=== PATIENT | female | born 1930 | race Caucasian/White ===

== ENCOUNTER 2016-09-13 14:02 | Emergency (ER) | payer OTHER, MEDICARE ==
[~2016-09-13 14:02] MED LIST: ASPIRIN EC81 M1 PO; CALCIUM + D 6001 TAB PO; CRESTOR10 M1 PO; HYDRODIURIL 112.5 M1 PO; LOSARTAN POTAS100 M1 PO; PREVACID SOLUTA30 MG PO; SIMVASTATIN20 MG PO; SYNTHROID100 MCG PO; ZANTAC 150MG150 MG PO
[2016-09-13] MEDS ORDERED: DEXILANT60 M1 PO (16:39)
[2016-09-13] MEDS ORDERED: ESCITALOPRAM OXA5 MG (16:40)
--- NOTE | 2016-09-13 16:56 | ED GENERAL ADULT ---
History of Present Illness General Chief Complaint: General Adult Stated Complaint: DIFFICULTY SWALLOWING Source: patient, family, old records Exam Limitations: no limitations Vital Signs & Intake/Output Vital Signs & Intake/Output Vital Signs Date Time Temp Pulse Resp B/P Pulse O2 O2 Flow FiO2 Ox Delivery Rate 09/13 1749 97.5 75 18 155/74 98 Room Air Room Air 09/13 1605 97.9 72 20 150/72 97 09/13 1413 98.3 78 20 172/78 97 Room Air Allergies Coded Allergies: NO KNOWN ALLERGIES (08/24/16) Triage Note: PT TO ED WITH DAUGHTER FOR C/O DIFFICULTY SWALLOWING. PT STATES SHE HAS HAD THIS ISSUE FOR YEARS, IS BEING FOLLOWED BY GI DR HOSIKNS. STATES TODAY WHILE EATING A SANDWICH AND TEA SHE WAS HAVING A HARD TIME SWALLOWING. DENIES ANY PAIN. Triage Nurses Notes Reviewed? yes Onset: Gradual Duration: 1 YEAR Timing: recent history Injury Environment: home Severity: mild Modifying Factors: Improves With: other (MAKES HERSELF VOMIT). HPI: Patient is an 85-year-old female presenting to the emergency department with episodes of dysphagia. She reports that the symptoms have been going on for the past one year and she sees Dr. avilez, cyberathlete. She's had endoscopy donE, she also reports that she had a fall study done in the past and it doesn't reveal anything. She feels like food gets stuck if she eats certain types of food and has to make herself vomit. Currently asymptomatic. She reports that she was up all night last night with similar symptoms and developed similar symptoms today after eating a sandwich for lunch. Denies any current nausea or vomiting. She reports that she was nauseous after eating the sandwich. Denies abdominal pain. No chest pain palpitations. They called Dr. Hoskins's office and the staff there recommended she come into the emergency department to be evaluated. Denies taking anything to help with symptoms. Denies history of any dilutional procedures done to her esophagus. (BLAKE GRUBER,LOBITO) Reconcile Medications Aspirin (Ecotrin*) 81 MG TABLET.DR 1 TAB PO DAILY HEART/BLOOD (Reported) Dexlansoprazole (Dexilant) (Unknown Strength) CAP.BP (Unknown Dose) PO DAILY UNKNOWN (Reported) Escitalopram Oxalate (Unknown Strength) TABLET (Unknown Dose) UNKNOWN ( Reported) Levothyroxine Sodium (Synthroid) 100 MCG TABLET 1 TAB PO DAILY THYROID ( Reported) Lidocaine HCl (Lidocaine HCl Viscous) 2 % SOLUTION 15 ML PO 4 TIMES/DAY PRN sore throat Losartan Potassium 100 MG TABLET 1 TAB PO DAILY BP (Reported) Rosuvastatin Calcium (Crestor) 10 MG TABLET 1 TAB PO DAILY CHOLESTEROL ( Reported) (NOLAN DARBY DO) Past History Travel History Traveled to [place] past 21 day No Medical History Any Pertinent Medical History? see below for history Cardiovascular: hypertension, hyperlipidemia Respiratory: NONE Gastrointestinal: GERD, hiatal hernia Endocrine: HALF THYROID REMOVED Surgical History Surgical History: non-contributory Psychosocial History What is your primary language Azeri Tobacco Use: Never used ETOH Use: denies use Illicit Drug Use: denies illicit drug use Family History Hx Contributory? No (LOBITO LEE) Review of Systems Review of Systems Constitutional: Reports: no symptoms. Comments Review of systems: See HPI, All other systems negative. Constitutional, no chills fever or weight loss HEENT: No visual changes no sore throat no congestion Cardiovascular: No chest pain ,palpitation , orthopnea Skin, no jaundice no rashes Respiratory: No dyspnea cough sputum or hemoptysis GI: No nausea no vomiting : No dysuria No hematuria Muscle skeletal: no back pain, no neck pain, Neurologic: No numbness no confusion Psych: No stress anxiety Immunology: No splenectomy or history of AIDS (LOBITO LEE) Physical Exam Physical Exam General Appearance: well developed/nourished, no apparent distress, alert, awake , comfortable Comments: Well-developed well-nourished person in no acute distress HEENT: Normal EENT exam, extraocular motion intact, no nystagmus. Pupils equally round and reactive to light and accommodation. Nose is atraumatic. External auditory canal and Tympanic membranes clear. Pharynx normal. No swelling or edema. Moist oral mucosa. Clearing secretions without difficulty. Neck: Supple, no lymphadenopathy, normal range of motion without pain or tenderness Back: Nontender, no CVA tenderness. Full range of motion Cardiovascular: Regular rate and rhythms no murmurs rubs or gallops, normal JVP Respiratory: Chest nontender. No respiratory distress.breath sounds clear to auscultation bilaterally Abdomen: Soft, nontender nondistended, no appreciable organomegaly. Normal bowel sounds. No ascites Extremity: No edema, no calf tenderness to palpation, normal and equal pulses. Neuro: Alert oriented x3, motor sensory normal, cranial nerves II through XII grossly intact. Skin: No appreciable rash on exposed skin, skin is warm and dry. Psych: Mood and affect is normal, memory and judgment is normal. Core Measures ACS in differential dx? No CVA/TIA Diagnosis: No Severe Sepsis Present: No Septic Shock Present: No (LOBITO LEE) Progress Differential Diagnoses I considered the following diagnoses in my evaluation of the patient: Esophageal food impaction, esophageal web, esophageal stricture, esophageal dysmotility Plan of Care: Spoke with Dr. Hoskins, her cyberathlete. Recommending following up with GI for manometry testing and further evaluation. Patient tolerating liquids at this time. Some relief with GI cocktail, the patient reports that she was not really having any symptoms on arrival. Patient is well-appearing and in no acute chest. Tolerating by mouth. Discussed with Dr. Martinez and he agrees to plan patient will follow up outpatient. She'll need endoscopy and further evaluation. Initial ED EKG: none (LOBITO LEE) Departure Departure Time of Disposition: 1710 Disposition: HOME OR SELF CARE Condition: Stable Clinical Impression Primary Impression: Dysphasia Referrals: LORETTA SALGADO APRN (PCP/Family) Additional Instructions: Follow-up with your cyberathlete out of [place]. He may need further evaluation with endoscopy and manometry testing. Try taking several small bites of air fluid. Eat soft foods. Increase liquids. Use viscous lidocaine to help with symptoms. Return for worsening symptoms or concerns. Departure Forms: Customer Survey General Discharge Information (LOBITO LEE) Departure Prescriptions: Current Visit Scripts Lidocaine HCl (Lidocaine HCl Viscous) 15 ML PO 4 TIMES/DAY PRN sore throat #100 ML PA/EXERCISE PHYSIOLOGIST CERTIFIED Co-Sign Statement Statement: ED Attending supervision documentation- [x] I saw and evaluated the patient. I have also reviewed all the pertinent lab results and diagnostic results. I agree with the findings and the plan of care as documented in the PA's/EXERCISE PHYSIOLOGIST CERTIFIED's documentation. [x] I have reviewed the ED Record and agree with the PA's/EXERCISE PHYSIOLOGIST CERTIFIED's documentation. [] Additions or exceptions (if any) to the PAs/EXERCISE PHYSIOLOGIST CERTIFIED's note and plan are summarized below: [] (NOLAN DARBY DO) Critical Care Note Critical Care Note Critical Care Time: non-applicable (BLAKE GRUBER,LOBITO)
[2016-09-13] MEDS ORDERED: LIDOCAINE HCL V15 ML PO ×2 (17:13→17:45)
[2016-09-13 17:49] VITALS: BP 155/74
== END 2016-09-13 17:50 ==
LOC: ERH 14:02
DX: R47.02 Dysphasia (principal)

== ENCOUNTER 2017-06-20 21:45 | Inpatient (IN) | payer OTHER, MEDICARE ==
[~2017-06-20] VITALS: Ht 157.5 cm; Wt 61.2 kg
[~2017-06-20 21:45] MED LIST changes: +DEXILANT60 M1 PO; +ESCITALOPRAM OXA5 MG; +LIDOCAINE HCL V15 ML PO
--- NOTE | 2017-06-20 21:54 | ED NECK/BACK PAIN COMPLAINT ---
History of Present Illness General Chief Complaint: Low Back Pain/Injury Stated Complaint: BIBA BACK PAIN X 4 DAYS Source: patient, family, old records, EMS Exam Limitations: no limitations Allergies Coded Allergies: NO KNOWN ALLERGIES (08/24/16) Reconcile Medications Aspirin (Ecotrin*) 81 MG TABLET.DR 1 TAB PO DAILY HEART/BLOOD (Reported) Levothyroxine Sodium (Synthroid) 100 MCG TABLET 1 TAB PO DAILY THYROID ( Reported) Losartan Potassium 100 MG TABLET 1 TAB PO DAILY BP (Reported) Rosuvastatin Calcium (Crestor) 10 MG TABLET 1 TAB PO DAILY CHOLESTEROL ( Reported) Onset: Gradual Duration: day(s): (5) Timing: recent history Quality/Severity: moderate, severe Location: lumbar spine Radiation: none Method of Injury: unknown Loss of Consciousness: no loss of consciousness HPI: 86 year old female presents via EMS from home for severe lower back pain 03/28. 5 days ago she was seen at an urgent care center and had an xray done which showed degenerative changes and ? herniation. She was sent home on steroids and flexeril with minimal relief. Today she was unable to get out of bed secondary to severe pain and was incontinent. Patient lives on her own, ususally uses a walker. She denies any trauma, weakness or numbness in the legs. No abdominal pain, nausea or vomiting. No diffficulty with bowels. (Telma ERIC,Sanam) Vital Signs & Intake/Output Vital Signs & Intake/Output Vital Signs Date Time Temp Pulse Resp B/P B/P Pulse O2 O2 Flow FiO2 Mean Ox Delivery Rate 06/22 1032 Room Air 06/22 1027 Room Air 06/22 0831 76 162/74 06/22 0621 98.0 76 20 162/74 96 06/21 2154 98.0 74 19 130/62 97 Room Air 06/21 1426 98.8 70 18 140/65 94 Room Air ED Intake and Output 06/22 0000 06/21 1200 Intake Total 1075 465 Output Total 1400 Balance -325 465 Intake, IV 575 225 Intake, Oral 500 240 Number 3 Bowel Movements Output, Urine 1400 Patient 135 lb Weight Weight Bed scale Measurement Method Triage Nurses Notes Reviewed? yes HPI: per dr. hollis (Lenny ERIC,Larry Ha) Past History Travel History Traveled to [place] past 21 day No Medical History Any Pertinent Medical History? see below for history Cardiovascular: hypertension, hyperlipidemia Respiratory: NONE Gastrointestinal: GERD, hiatal hernia Endocrine: HALF THYROID REMOVED Surgical History Surgical History: non-contributory Psychosocial History What is your primary language Maltese (Sanam Hollis MD) Medical History Any Pertinent Medical History? see below for history Family History Hx Contributory? No (Larry Galvez MD) Review of Systems Review of Systems Constitutional: Denies: chills, fever. Eyes: Reports: no symptoms. Ears, Nose, Throat, Mouth: Reports: no symptoms. Respiratory: Reports: no symptoms. Cardiovascular: Reports: no symptoms. Gastrointestinal/Abdominal: Denies: abdominal pain, nausea, vomiting. Musculoskeletal: Reports: back pain, muscle pain, muscle stiffness. Skin: Reports: no symptoms. Neurological/Psychological: Denies: numbness, tremors, weakness. All Other Systems: Reviewed and Negative (Sanam Hollis MD) Review of Systems Constitutional: Reports: no symptoms. Eyes: Reports: no symptoms. Ears, Nose, Throat, Mouth: Reports: no symptoms. Respiratory: Reports: no symptoms. Cardiovascular: Reports: no symptoms. Gastrointestinal/Abdominal: Reports: no symptoms. Musculoskeletal: Reports: no symptoms. Skin: Reports: no symptoms. Neurological/Psychological: Reports: no symptoms. All Other Systems: Reviewed and Negative (Larry Galvez MD) Physical Exam Physical Exam General Appearance: alert, awake, anxious, moderate distress, severe distress, thin Head: atraumatic Eyes: Bilateral: PERRL, EOMI. Ears, Nose, Throat, Mouth: hearing grossly normal Neck: normal inspection, supple, full range of motion Respiratory: normal breath sounds Cardiovascular: tachycardia Gastrointestinal: soft, non-tender Back: normal inspection, tender over L1-L3 Extremities: normal range of motion Neurologic/Psych: awake, alert, oriented x 3, normal mood/affect Skin: intact, normal color, warm/dry Comments: positive RIGHT SIDED SLR AT 20 DEGREES (Sanam Hollis MD) Physical Exam General Appearance: well developed/nourished, mild distress Head: atraumatic Eyes: Bilateral: PERRL, EOMI. Ears, Nose, Throat, Mouth: hearing grossly normal Neck: normal inspection, supple, full range of motion Respiratory: normal breath sounds Cardiovascular: regular rate/rhythm Gastrointestinal: soft, non-tender Back: normal inspection, vertebral tenderness Extremities: normal range of motion Neurologic/Psych: awake, alert, oriented x 3, normal mood/affect Skin: intact, normal color, warm/dry Core Measures CVA/TIA Diagnosis: No (Lenny ERIC,Larry Ha) Progress Differential Diagnosis: AAA, aortic dissection, cauda equina syn, herniated disc , myofascial strain, T/L spine injury, vertebral compresion vs other. Hand-Off Endorsed To: Lenny ERIC,Larry Ha Endorsed Time: 2300 Pending: CT, labs (Telma ERIC,Sanam) Differential Diagnosis: vertebral compresion vs other. Plan of Care: Orders Procedure Date/time Status Therapeutic Activities 06/22 UNK Complete Neuromuscular Re-ed 06/22 UNK Complete Evaluate Swallowing 06/21 UNK Complete Current Medications Sig/Arslan Start time Last Medication Dose Stop Time Status Admin Nitrofurantoin 50 MG Q6 06/22 1200 CAN (Macrodantin 50MG Cap) Levothyroxine Sodium 0.1 MG 0700 06/22 0700 AC 06/22 (Synthroid) 0637 Atorvastatin Calcium 40 MG 1700 06/21 1700 AC 06/21 (Lipitor) 1738 Acetaminophen 650 MG BID PRN 06/21 1030 AC (Tylenol) Acetaminophen 1,000 MG BID 06/21 1011 AC 06/22 (Tylenol) 0830 Lidocaine 1 PAT DAILY 06/21 1000 AC 06/22 (Lidoderm) 1046 Losartan Potassium 100 MG DAILY 06/21 1000 AC 06/22 (Cozaar) 0831 Cyclobenzaprine HCl 5 MG TID PRN 06/21 0845 AC 06/22 (Flexeril 5MG Tab) 0833 Heparin Sodium 5,000 UNIT Q8 06/21 0600 AC 06/22 (Porcine) 0637 Tramadol HCl 25 MG Q8P PRN 06/21 0400 AC 06/22 (Ultram) 0637 Laboratory Tests 06/21/17 1855: Urinalysis LIGHT H, Urine Color YEL, Urine Clarity HAZY H, Urine pH 6.0, Ur Specific [place] <= 1.005, Urine Protein NEG, Urine Ketones NEG, Urine Nitrite POS H, Urine Bilirubin NEG, Urine Urobilinogen 0.2, Ur Leukocyte Esterase SMALL H, Ur Microscopic SEDIMENT EXAMINED, Urine RBC RARE, Urine WBC 10-15 H, Ur Epithelial Cells FEW, Urine Bacteria MANY H, Urine Hemoglobin SMALL H, Urine Glucose NEG Microbiology 06/21 1855 URINE ROUT: Urine Culture - RES GRAM NEGATIVE RODS Diagnostic Imaging: Viewed by Me: CT Scan. Discussed w/RAD: CT Scan. Radiology Impression: PATIENT: YESSICA YIN PRESENT AGE: 86 PATIENT ACCOUNT NO: [id number] : 32 LOCATION: [facility] ORDERING PHYSICIAN: Sanam Hollis MD SERVICE DATE: 06/20/17 EXAM TYPE: CAT - CT ABD & PELVIS ANGIOGRAM STUDY PERFORMED: CTA of the abdomen and pelvis with contrast HISTORY: Severe low back pain. Evaluate for dissection or lumbar pathology. DESCRIPTION: Routine abdominal CT angiogram was performed following the administration of 100 mL of Omnipaque 350 intravenous contrast. Coronal and sagittal reformatted images were created at the acquisition workstation reviewed. The images will be reviewed and postprocessed on a dedicated 3-D workstation. Dedicated reformats of the lumbar spine were also created. COMPARISON: None FINDINGS: Vascular: There is extensive atherosclerotic vascular calcification. No aortic aneurysm or dissection. No contrast extravasation. Nonvascular: LUNG BASES: The visualized lung bases are unremarkable. There is a moderate hiatal hernia. LIVER, GALLBLADDER, AND BILIARY TREE: The liver is normal in size, shape, and attenuation. No focal hepatic lesion or biliary ductal dilatation is present. Cholelithiasis is noted without CT evidence of acute cholecystitis. PANCREAS: Unremarkable. SPLEEN: Unremarkable. ADRENAL GLANDS: Unremarkable. KIDNEYS AND URETERS: The kidneys are normal in size, shape , and attenuation. No hydronephrosis, hydroureter, or calculi seen. No perinephric stranding. BLADDER: Unremarkable. GASTROINTESTINAL TRACT: The stomach is nondilated. No dilated or abnormal appearing small bowel. There is sigmoid colonic diverticulosis without diverticulitis. The appendix is not definitively identified but there is no focal right lower quadrant inflammatory stranding. ABDOMINAL WALL: No significant hernia is appreciated. LYMPH NODES: Normal. PELVIC VISCERA: Unremarkable. OSSEOUS STRUCTURES: Symphysitis pubis is noted. There is central compression deformity at L2 with concavity of both the superior and inferior endplates. There is cortical discontinuity in the superior endplate suggesting this represents an acute compression fracture. There is 40% vertebral body height loss centrally. No bony retropulsion. IMPRESSION: 1. Acute compression fracture at L2 with 40% vertebral body height loss centrally. No bony retropulsion. 2. Extensive atherosclerotic vascular calcification without aortic aneurysm or dissection. An addendum to this report will be performed in the morning by a subspecialty trained vascular radiologist. 3. Moderate hiatal hernia. 4. Cholelithiasis without acute cholecystitis. 5. Sigmoid diverticulosis without diverticulitis. DICTATED BY: Rayo Olivas MD DATE/TIME DICTATED:06/21/17113 INSPECTOR CONVEYOR LINE:JOSE JUAN DATE/TIME TRANSCRIBED:06/21/17113 CONFIDENTIAL, DO NOT COPY WITHOUT APPROPRIATE AUTHORIZATION. <Electronically signed in Other Vendor System> SIGNED BY: Rayo Olivas MD 06/21/17 0130 (Larry Galvez MD) Departure Departure Condition: Stable Referrals: Luba Grimaldo APRN (PCP/Family) Departure Forms: Customer Survey General Discharge Information (Telma ERIC,Sanam) Departure Disposition: STILL A PATIENT Clinical Impression Primary Impression: Vertebral compression fracture Secondary Impressions: Dehydration Comments 06/21/16, 2:37am... labs/scans have returned.... discussed at length with family and patient. discussed with case management. Admission Note Spoke With: Julia Alston MD Documentation of Exam: Documentation of any treatments & extenuating circumstances including Concerns Regarding Discharge (functional status, medication knowledge or non-compliance, living conditions, etc.) that warrant an admission rather than observation: pt with vertebral compression fracture with inability to ambulate. also with elevated bun/cr ratio consistent with dehydration. other labs benign. u/a is likely contaminant. pt merits iv pain meds, iv fluids, likely short term rehab. (Larry Galvez MD) Departure Disposition: STILL A PATIENT Clinical Impression Primary Impression: Vertebral compression fracture Secondary Impressions: Dehydration Comments 06/21/16, 2:37am... labs/scans have returned.... discussed at length with family and patient. discussed with case management. Admission Note Spoke With: Julia Alston MD Documentation of Exam: Documentation of any treatments & extenuating circumstances including Concerns Regarding Discharge (functional status, medication knowledge or non-compliance, living conditions, etc.) that warrant an admission rather than observation: pt with vertebral compression fracture with inability to ambulate. also with elevated bun/cr ratio consistent with dehydration. other labs benign. u/a is likely contaminant. pt merits iv pain meds, iv fluids, likely short term rehab. (Lenny ERIC,Larry Ha)
[2017-06-20 23:33] LABS: ABSOLUTE BASOPHIL COUNT 0.1 /CUMM (0.0-0.2); ABSOLUTE EOSINOPHIL COUNT 0 /CUMM (0.0-0.7); ABSOLUTE GRANULOCYTE CT 5.2 /CUMM (1.4-6.5); ABSOLUTE MONOCYTE COUNT 0.8 /CUMM (0.10-0.60); BASOPHIL % 0.9 % (0.0-2.0); EOSINOPHIL % 0.2 % (0-5); GRANULOCYTE % 63.9 % (42.2-75.2); MEAN CORPUSCULAR HGB 29.8 PG (27.0-31.0); MEAN CORPUSCULAR HGB CONC 33.6 G/DL (33.0-37.0); MEAN CORPUSCULAR VOLUME 88.8 FL (81.0-99.0); MEAN PLATELET VOLUME 7.5 FL (7.4-10.4); PLATELET COUNT 359 /CUMM (130-400); RBC DISTRIBUTION WIDTH 13.2 % (11.5-14.5); RED BLOOD CELL CT 4.16 /CUMM (4.20-5.40); WHITE BLOOD CELL COUNT 8.1 /CUMM (4.8-10.8)
--- NOTE | 2017-06-21 01:30 | CT SCAN REPORT ---
STUDY PERFORMED: CTA of the abdomen and pelvis with contrast HISTORY: Severe low back pain. Evaluate for dissection or lumbar pathology. DESCRIPTION: Routine abdominal CT angiogram was performed following the administration of 100 mL of Omnipaque 350 intravenous contrast. Coronal and sagittal reformatted images were created at the acquisition workstation reviewed. The images will be reviewed and postprocessed on a dedicated 3-D workstation. Dedicated reformats of the lumbar spine were also created. COMPARISON: None FINDINGS: Vascular: There is extensive atherosclerotic vascular calcification. No aortic aneurysm or dissection. No contrast extravasation. Nonvascular: LUNG BASES: The visualized lung bases are unremarkable. There is a moderate hiatal hernia. LIVER, GALLBLADDER, AND BILIARY TREE: The liver is normal in size, shape, and attenuation. No focal hepatic lesion or biliary ductal dilatation is present. Cholelithiasis is noted without CT evidence of acute cholecystitis. PANCREAS: Unremarkable. SPLEEN: Unremarkable. ADRENAL GLANDS: Unremarkable. KIDNEYS AND URETERS: The kidneys are normal in size, shape, and attenuation. No hydronephrosis, hydroureter, or calculi seen. No perinephric stranding. BLADDER: Unremarkable. GASTROINTESTINAL TRACT: The stomach is nondilated. No dilated or abnormal appearing small bowel. There is sigmoid colonic diverticulosis without diverticulitis. The appendix is not definitively identified but there is no focal right lower quadrant inflammatory stranding. ABDOMINAL WALL: No significant hernia is appreciated. LYMPH NODES: Normal. PELVIC VISCERA: Unremarkable. OSSEOUS STRUCTURES: Symphysitis pubis is noted. There is central compression deformity at L2 with concavity of both the superior and inferior endplates. There is cortical discontinuity in the superior endplate suggesting this represents an acute compression fracture. There is 40% vertebral body height loss centrally. No bony retropulsion. IMPRESSION: 1. Acute compression fracture at L2 with 40% vertebral body height loss centrally. No bony retropulsion. 2. Extensive atherosclerotic vascular calcification without aortic aneurysm or dissection. An addendum to this report will be performed in the morning by a subspecialty trained vascular radiologist. 3. Moderate hiatal hernia. 4. Cholelithiasis without acute cholecystitis. 5. Sigmoid diverticulosis without diverticulitis.
--- NOTE | 2017-06-21 03:29 | History & Physical ---
Alysia ERIC,[facility] 06/21/17 0321: General Information and HPI MD Statement: I have seen and personally examined YESSICA YIN and documented this H&P. The patient is a 86 year old F who presented with a patient stated chief complaint of [LOW BACK PAIN/INJURY]. Source of Information: patient, family, old records, EMS Exam Limitations: no limitations History of Present Illness: patient is a 86 YO F with PMH significant for HTN, HLD, GERD, hiatal hernia, partial thyroidectomy presented to ER with back pain. Allergies/Medications Allergies: Coded Allergies: NO KNOWN ALLERGIES (08/24/16) Home Med list Aspirin (Ecotrin*) 81 MG TABLET.DR 1 TAB PO DAILY HEART/BLOOD (Reported) Dexlansoprazole (Dexilant) (Unknown Strength) CAP.BP (Unknown Dose) PO DAILY UNKNOWN (Reported) Escitalopram Oxalate (Unknown Strength) TABLET (Unknown Dose) UNKNOWN ( Reported) Levothyroxine Sodium (Synthroid) 100 MCG TABLET 1 TAB PO DAILY THYROID ( Reported) Losartan Potassium 100 MG TABLET 1 TAB PO DAILY BP (Reported) Rosuvastatin Calcium (Crestor) 10 MG TABLET 1 TAB PO DAILY CHOLESTEROL ( Reported) Past History Travel History Traveled to [place] past 21 day No Medical History Cardiovascular: hypertension, hyperlipidemia Respiratory: NONE Gastrointestinal: GERD, hiatal hernia Endocrine: HALF THYROID REMOVED Surgical History Surgical History: non-contributory Gamaliel ERIC, [facility] 06/21/17 0357: Attending MD Review Statement Attending Statement Attending MD Statement: examined this patient, discuss w/resident/PA/CARE PROVIDER, agreed w/resident/PA/CARE PROVIDER, reviewed images, amended to note
[2017-06-21 04:10] VITALS: BP 138/64
--- NOTE | 2017-06-21 06:49 | History & Physical ---
ZulyeduardomosesAlexiskate 06/21/17 0648: General Information and HPI Source of Information: patient, family, old records, EMS Exam Limitations: no limitations History of Present Illness: Ms Ramirez was known to be in her usual state of heatlh until five days ago. She was brought to the ER w/ a chief concern of an acute onset of back pain that began 5 days ago. She has a PMHx of RA, OA, HTN,, dysphagia( work up is still underway at [facility] ), GERD, CKD. 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 As per the pt, pain began while she was turning on her recliner, where she sleeps for most part of the day. Unsure, if she had a sudden change in direction or recliner itself that snapped on her. She noticed an acute pain, which did not subside after resting for a while. She graded the severity of pain as 10/10, located in the lower back w/ no radiation. She had limited ambulation after the acute pain, and did not have any neurological weakness or sensory deficits. She however mentioned, after questioning that she lost control of bladder after holding the urination for a while, and was not moving quickly to get to the bathroom in time. She did not have any diarrhea, or loss of bowel function. She did not have any other complaints such as chest pain, SOB, palpitations, or lightheadedness. No report of fall in the recent past. No dysurea, or abdominal pain. She has a history of dysphagia, for which she is being evaluated at [facility]. She is also been seen by Dr. Hoskins at [facility]. 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 Home Services at Home: None Smoking Status: Never Smoked Functional Ability ADLs Independent: dressing, eating, toileting, bathing. Ambulation: walker IADLs Unknown: shopping, housework, finances, food prep, telephone, transportation, medication admin. Review of Systems Review of Systems Constitutional: Reports: see HPI. Denies: chills, fever. EENTM: Denies: double vision, visual changes. Cardiovascular: Denies: chest pain, edema, orthopena. Respiratory: Denies: cough, orthopnea. GI: Denies: abdominal pain, diarrhea. Genitourinary: Denies: discharge, dysuria. Musculoskeletal: Reports: back pain. Skin: Denies: change in skin color. Neurological/Psychological: Denies: ataxia. Hematologic/Endocrine: Denies: bruising. Exam & Diagnostic Data Last 24 Hrs of Vital Signs/I&O Vital Signs Date Time Temp Pulse Resp B/P B/P Pulse O2 O2 Flow FiO2 Mean Ox Delivery Rate 06/21 0432 Room Air 06/21 0410 97.6 83 18 138/64 98 06/21 0330 97.3 91 18 160/82 98 Room Air 06/21 0108 97.2 110 18 158/78 98 Room Air 06/20 2240 98.0 89 20 168/94 96 Room Air 06/20 2207 Room Air 06/20 2158 126 20 180/110 97 Room Air Intake & Output 06/21 1600 06/21 0800 06/21 0000 Intake Total 465 100 Output Total Balance 465 100 Intake, IV 225 100 Intake, Oral 240 Patient 135 lb 140 lb Weight Weight Bed scale Reported by Patient Measurement Method Physical Exam General Appearance Alert, Oriented X3, Cooperative, Mild Distress Skin No Rashes, No Breakdown, No Significant Lesion Skin Temp/Moisture Exam: Warm/Dry Sepsis Skin Exam (color): Normal for Ethnicity HEENT Atraumatic, PERRLA, EOMI, Mucous Membr. moist/pink Neck Supple, No JVD, No thryomegaly, +2 Carotid Pulse wo Bruit Lymphatic Cervical nl Cardiovascular Regular Rate, Normal S1, Normal S2, No Murmurs Lungs Normal Air Movement Abdomen Normal Bowel Sounds, Soft, No Tenderness, No Hepatospenomegaly Neurological Normal Speech, Strength at 5/5 X4 Ext, Normal Tone, Sensation Intact, Cranial Nerves 3-12 NL, Reflexes 2+, rectal tone present, no sensory deficits., tenderness in her lumbar spinal area. Extremities No Clubbing, No Cyanosis, No Edema, Normal Pulses, No Tenderness/ Swelling Vascular Pulses Symmetrical Sepsis Peripheral Pulse Location: Dorsalis Pedis Last 24 Hrs of Labs/Qamar: Laboratory Tests 06/21/17 0643: Anion Gap 9, Estimated GFR 47 L, BUN/Creatinine Ratio 24.5, CBC w Diff NO MAN DIFF REQ, RBC 4.01 L, MCV 88.9, MCH 29.8, RDW 13.2, MPV 7.6, Gran % 71.0, Lymphocytes % 19.3 L, Monocytes % 8.6, Eosinophils % 0.6, Basophils % 0.5, Absolute Granulocytes 5.6, Absolute Lymphocytes 1.5, Absolute Monocytes 0.7 H, Absolute Eosinophils 0.1, Absolute Basophils 0, PUBS MCHC 33.5 UA ordered. Diagnostic Data EKG Results NSR. Other Results CAT - CT ABD & PELVIS ANGIOGRAM 1. Acute compression fracture at L2 with 40% vertebral body height loss centrally. No bony retropulsion. 2. Extensive atherosclerotic vascular calcification without aortic aneurysm or dissection. An addendum to this report will be performed in the morning by a subspecialty trained vascular radiologist. 3. Moderate hiatal hernia. 4. Cholelithiasis without acute cholecystitis. 5. Sigmoid diverticulosis without diverticulitis. Assessment/Plan Assessment: Ms Ramirez is a very frail 86 year old woman w/ PMHx of post-menopausal osteoporosis, hypothryodism, HTN, RA, OA is being evaluated for an acute onset pain in her lower back secondary to a compression fracture of L2 with 40% vertebral body height loss centrally. At the time of admission, vitals remained stable, and examination revealed tenderness in her lower spine, w/ no focal neurological deficits. No perineal tenderness, or loss of rectal tone. Pertinent lab findings: WBC 8.1, Hb 12.4, MCV 88.8, Na 133, BUN 29, Cr 1.1 ( chronic ), Ca 9.0. CT spine w/ contrast revealed acute compression fracture. Etiology in her case is very clear, which is likely from osteoporosis, and fracture in lower spinal verterbrae seem to be commonly associated w/ an accidental twisting of spine. Unfortunately, she did not tolerate bisphosphonates secondary to her dysphagia; these class of medication are shown to be very beneficial in preventing future fractures. SHe also has kyphosis, which makes these injuries more common. No prednisone use prior to this injury, makes other etiologies unlikely. She also has slighly abnormal UA, for which she needs further analysis. THe location of the fracture makes the evalution of cord compression very important in her case; preliminary neurological exam did not show any s/o cord compression, but history of frequent urination makes the clinical picture confusing. In regards to her management, she should be started on a bisphosphonate, and calcitonin to reduce severe pain. Kyphoplasty could be attempted, but it should be kept in mind that the she has age related bone loss that makes the future fractures more likely, once this verterbra is fixed ( acts as a pivot ). Plan: 1. Back pain- Conservative management at this time. Bed rest, and mobility after cleared by orhto. Frequent checks to evaluate any cord compression s/s. If she develops any s/s of cord compression, neuro surg to be notified. Pt evaluation. - Check vitamin D. 2. Pain management- Tylenol, tramadol and opiates. Avoid excessive opiates. 3. Abnormal UA - Repeat UA - Follow UC. 4. Dysphagia - Swallow eval. - Mechanical soft diet as per the pt Housekeepin. DVT Ppx- heparin sc 2. COde status- Full code, as per the pt. She would like to discuss w/ the daughter at some point.( attempted to call benson several times ). 3. Med rec: - LT4 100mcg - Losartan- continued - Simvastatin-continued Discussed w/ the attending. As Ranked By This Provider Problem List: 1. Dehydration 2. Vertebral compression fracture 3. Dysphasia Core Measures/Misc (03/05) Acute Coronary Syndrome ACS Diagnosis: No Congestive Heart Failure Congestive Heart Failure Diagnosis No Cerebrovascular Accident CVA/TIA Diagnosis: No VTE (View Protocol) VTE Risk Factors Acute Medical Illness No Mechanical VTE Prophylaxis d/t N/A MechProphylax Ordered No VTE Pharm Prophylaxis d/t NA PharmProphylax ordered Sepsis (View protocol) Sepsis Present: No Gamaliel ERIC, [facility] 06/21/17 0701: General Information and HPI Allergies/Medications Home Med list Aspirin (Ecotrin*) 81 MG TABLET. 1 TAB PO DAILY HEART/BLOOD (Reported) Levothyroxine Sodium (Synthroid) 100 MCG TABLET 1 TAB PO DAILY THYROID ( Reported) Losartan Potassium 100 MG TABLET 1 TAB PO DAILY BP (Reported) Rosuvastatin Calcium (Crestor) 10 MG TABLET 1 TAB PO DAILY CHOLESTEROL ( Reported) Attending MD Review Statement Attending Statement Attending MD Statement: examined this patient, discuss w/resident/PA/TILTING [employer] BAND SAWYER, agreed w/resident/PA/[employer] BAND SAWYER, discussed with family, reviewed images, amended to note Attending Assessment/Plan: 86 yo F with h/o RA, OA, HTN, hypothyroidism, dysphagia of unclear etiology, GERD, hiatal hernia, CKD stage 3, is BIBA for c/o mid to low back pain for the past 5 days. Daughter reports that patient always sleeps in a recliner due to 'a bad back curvature'. She denies any fall or trauma. She does report that patient 's recliner tends to give a strong impact to the back when she brings it back to sitting position. This could have caused an impact to the lower back is what she feels thus causing her a compression fracture on her already weak bones. Patient was not able to walk since Monday, she came to [place] [facility] but then went to an Urgent care center due to the long wait here. Xray done at Urgent care was negative for fracture, she was given steroids and flexeril for pain management. But her pain did not resolve. Daughter reports she just cannot move or walk and pain is worse when trying to get up. Hence, she called 911. Patient also reports loss of bladder control ?incontinence over the past 1 week wherein she is urinating more frequently without any notice at times. She denies tingling numbness in her legs. Vitals are stable except for mild tachycardia and hypertension which is probably pain induced. Exam: AAO, in distress due to pain, dry mucous membranes, Neck supple, PERRL, Chest b/l clear, Heart S1S2 regular, systolic murmur+, Abd soft, ?bladder was palpable, BS+. LE: no edema. Patient was not able to turn around for a complete back exam so unable to assess for spinal or paraspinal tenderness. Labs: CBC normal. Na 133, BUN 29, creat 1.1 (baseline), glucose 105, trop neg. UA hazy, small LE, WBC 15-25, many bacteria. EKG: reported as Afib due to artifact, but appears SR. CT abd/pelvis angiogram: acute compression fracture at L2 with 40% vertebral body height loss, extensive atherosclerotic vascular calcification, moderate hiatal hernia, cholelithiasis, diverticulosis. Rectal exam (done by resident): normal rectal tone. Assessment and plan: 1. Acute low back pain 2. Acute L2 compression fracture 3. Severe osteoarthritis and rheumatoid arthritis 4. Rule out cord compression ?loss of bladder control 5. Assess for UTI 6. H/o dysphagia - Admit to general medicine - Fall precautions - Obtain bladder scan to watch for post void residual - Straight cath to repeat a urinalysis to confirm UTI - Send urine culture and initiate IV ceftriaxone - ?Consider CT/ MRI lumbar spine with contrast to rule out cord compression although rectal tone intact and neuro exam normal. - Pain management with IV tylenol, tramadol, lidoderm patch and IV ketorolac as need for severe pain - No opiates/ narcotics as daughter refuses them. - Gentle IV hydration - Please repeat EKG - Add flexeril for muscle spasms - Discuss with IR if patient is a candidate for vertebroplasty - PT eval and placement - Check swallow eval, patient follows up with Dr. Caesar Hoskins, she has had barium swallow exams but no ?EGD. She reports being on a soft diet (no spinach or tomato). DVT ppx Hep SC. Full code. Please confirm CMR and order meds in AM.
--- NOTE | 2017-06-21 07:02 | Admission Certification ---
Admission Certification Certification Statement - As attending physician, I certify that at the time of - admission, based on clinical presentation, severity of - symptoms, need for further diagnostic testing and - therapeutic interventions, and risk of adverse outcomes - without in-hospital treatment, in my clinical assessment, - this patient requires an acute hospital stay for a minimum - of two nights or longer. I have also considered psychsocial - factors such as support system, advanced age, financial - issues, cognitive issues, and failed out-patient treatments, - past re-admission history, safety of patient, and lack of - compliance as applicable. Specific rationale supporting this admission is: Low back pain, acute lumbar compression fracture.
[2017-06-21 08:37] LABS: ABSOLUTE BASOPHIL COUNT 0 /CUMM (0.0-0.2); ABSOLUTE EOSINOPHIL COUNT 0.1 /CUMM (0.0-0.7); ABSOLUTE GRANULOCYTE CT 5.6 /CUMM (1.4-6.5); ABSOLUTE LYMPH COUNT 1.5 /CUMM (1.2-3.4); ABSOLUTE MONOCYTE COUNT 0.7 /CUMM (0.10-0.60); BASOPHIL % 0.5 % (0.0-2.0); EOSINOPHIL % 0.6 % (0-5); HEMATOCRIT 35.7 % (37-47); MEAN CORPUSCULAR HGB 29.8 PG (27.0-31.0); MEAN CORPUSCULAR HGB CONC 33.5 G/DL (33.0-37.0); MEAN CORPUSCULAR VOLUME 88.9 FL (81.0-99.0); MEAN PLATELET VOLUME 7.6 FL (7.4-10.4); PLATELET COUNT 302 /CUMM (130-400); RBC DISTRIBUTION WIDTH 13.2 % (11.5-14.5); RED BLOOD CELL CT 4.01 /CUMM (4.20-5.40); WHITE BLOOD CELL COUNT 7.9 /CUMM (4.8-10.8)
--- NOTE | 2017-06-21 09:57 | PN- Housestaff ---
See Addendum Subjective Follow-up For: Acute spontaneous compression fracture at the level of L2 Subjective: -Patient was seen and examined. -She offers no complaints, her back pain seems to be well controlled with current pain medication regimen. -Admitting team which was normal. She has urinated without any problems 2 times since admission. -She denies headache, nausea, vomiting, dizziness, lightheadedness, chest pain, shortness of breath, abdominal pain, urinary symptoms, change in bowel habits. -Had mild drop in hemoglobin from 12.4 to 11.9. Review of Systems Constitutional: Reports: no symptoms. Objective Last 24 Hrs of Vital Signs/I&O Vital Signs Date Time Temp Pulse Resp B/P B/P Pulse O2 O2 Flow FiO2 Mean Ox Delivery Rate 06/21 0432 Room Air 06/21 0410 97.6 83 18 138/64 98 06/21 0330 97.3 91 18 160/82 98 Room Air 06/21 0108 97.2 110 18 158/78 98 Room Air 06/20 2240 98.0 89 20 168/94 96 Room Air 06/20 2207 Room Air 06/20 2158 126 20 180/110 97 Room Air Intake & Output 06/21 1600 06/21 0800 06/21 0000 Intake Total 465 100 Output Total Balance 465 100 Intake, IV 225 100 Intake, Oral 240 Patient 135 lb 140 lb Weight Weight Bed scale Reported by Patient Measurement Method Physical Exam General Appearance: Alert, Oriented X3, Cooperative, No Acute Distress Skin: No Rashes Neck: Supple Cardiovascular: Regular Rate, Normal S1, Normal S2, No Murmurs, Gallops, Rubs Lungs: Clear to Auscultation, Normal Air Movement Abdomen: Normal Bowel Sounds, Soft, No Tenderness, No Hepatospenomegaly, No Masses Neurological: Normal Gait, Normal Speech, Strength at 5/5 X4 Ext, Normal Tone, Sensation Intact, Cranial Nerves 3-12 NL, Reflexes 2+, Mild tenderness in lumbar spine Extremities: No Clubbing, No Cyanosis, No Edema, Normal Pulses, No Tenderness/ Swelling Vascular: Normal Pulses, Pulses Symmetrical Current Medications: Current Medications Sig/Arslan Start time Last Medication Dose Route Stop Time Status Admin Acetaminophen 650 MG BID PRN 06/21 1030 AC PO Acetaminophen 1,000 MG BID 06/21 1011 AC PO Acetaminophen 650 MG Q6P PRN 06/21 0400 DC PO Acetaminophen 1,000 MG Q6P PRN 06/21 0400 DC IV Acetaminophen 1,000 MG ONCE ONE 06/20 2230 DC 06/20 N/A 1 UNIT IV 06/20 2244 2221 Acetaminophen 0 .STK-MED ONE 06/20 2221 DC IV Atorvastatin Calcium 40 MG 1700 06/21 1700 AC PO Cyclobenzaprine HCl 5 MG TID PRN 06/21 0845 AC PO Cyclobenzaprine HCl 0 .STK-MED ONE 06/21 0049 DC PO Cyclobenzaprine HCl 5 MG ONCE ONE 06/21 0045 DC 06/21 PO 06/21 0046 0050 Heparin Sodium 5,000 UNIT Q8 06/21 0600 AC (Porcine) SC Ketorolac 15 MG Q6P PRN 06/21 0400 DC Tromethamine IV 06/26 0359 Ketorolac 0 .STK-MED ONE 06/21 0049 DC Tromethamine .ROUTE Ketorolac 15 MG ONCE ONE 06/21 0045 DC 06/21 Tromethamine IV 06/21 0046 0050 Levothyroxine Sodium 0.1 MG 0700 06/22 0700 AC PO Levothyroxine Sodium 0.1 MG DAILY 06/21 1000 DC PO Lidocaine 1 PAT DAILY 06/21 1000 AC EXT Losartan Potassium 100 MG DAILY 06/21 1000 AC PO Morphine Sulfate 0 .STK-MED ONE 06/20 2204 DC .ROUTE Morphine Sulfate 2 MG ONCE ONE 06/20 2200 DC IV 06/20 2201 Sodium Chloride 1,000 ML Q13H 06/21 0330 AC 06/21 IV 06/21 1629 0426 Tramadol HCl 25 MG Q8P PRN 06/21 0400 AC PO Last 24 Hrs of Lab/Qamar Results Last 24 Hrs of Labs/Mics: Laboratory Tests 06/21/17 0643: Anion Gap 9, Estimated GFR 47 L, BUN/Creatinine Ratio 24.5, CBC w Diff NO MAN DIFF REQ, RBC 4.01 L, MCV 88.9, MCH 29.8, RDW 13.2, MPV 7.6, Gran % 71.0, Lymphocytes % 19.3 L, Monocytes % 8.6, Eosinophils % 0.6, Basophils % 0.5, Absolute Granulocytes 5.6, Absolute Lymphocytes 1.5, Absolute Monocytes 0.7 H, Absolute Eosinophils 0.1, Absolute Basophils 0, PUBS MCHC 33.5 06/21/17 0349: Urine Color Cancelled, Urine Clarity Cancelled, Urine pH Cancelled, Ur Specific [place] Cancelled, Urine Protein Cancelled, Urine Ketones Cancelled, Urine Nitrite Cancelled, Urine Bilirubin Cancelled, Urine Urobilinogen Cancelled, Ur Leukocyte Esterase Cancelled, Ur Microscopic Cancelled, Urine Hemoglobin Cancelled, Urine Glucose Cancelled 06/21/17 0105: Urine Osmolality 244 L 06/21/17 0105: Urinalysis LIGHT H, Urine Color STRAW, Urine Clarity HAZY H, Urine pH 6.0, Ur Specific [place] <= 1.005, Urine Protein NEG, Urine Ketones NEG, Urine Nitrite NEG, Urine Bilirubin NEG, Urine Urobilinogen 0.2, Ur Leukocyte Esterase SMALL H , Ur Microscopic SEDIMENT EXAMINED, Urine RBC 3-5, Urine WBC 15-25 H, Ur Epithelial Cells MANY H, Urine Bacteria MANY H, Urine Mucus FEW, Urine Hemoglobin SMALL H, Urine Glucose NEG 06/21/17 0053: Lactic Acid Cancelled 06/20/178: Anion Gap 10, Estimated GFR 47 L, BUN/Creatinine Ratio 26.4 H, Glucose 105 H, Serum Osmolality 290, Lactic Acid 1.1, Calcium 9.0, Total Bilirubin 0.4, AST 18, ALT 28, Alkaline Phosphatase 99, Troponin I 0.02, Total Protein 6.6, Albumin 3.8 , Globulin 2.8, Albumin/Globulin Ratio 1.4, 25-OH Vitamin D Total Pending, CBC w Diff Cancelled, WBC Cancelled, RBC Cancelled, Hgb Cancelled, Hct Cancelled, MCV Cancelled, MCH Cancelled, RDW Cancelled, Plt Count Cancelled, MPV Cancelled, Gran % Cancelled, Lymphocytes % Cancelled, Monocytes % Cancelled, Eosinophils % Cancelled, Basophils % Cancelled, Absolute Granulocytes Cancelled, Absolute Lymphocytes Cancelled, Absolute Monocytes Cancelled, Absolute Eosinophils Cancelled, Absolute Basophils Cancelled, [facility] Cancelled 06/20/172131: CBC w Diff NO MAN DIFF REQ, RBC 4.16 L, MCV 88.8, MCH 29.8, RDW 13.2, MPV 7.5, Gran % 63.9, Lymphocytes % 25.4, Monocytes % 9.6 H, Eosinophils % 0.2, Basophils % 0.9, Absolute Granulocytes 5.2, Absolute Lymphocytes 2.0, Absolute Monocytes 0.8 H, Absolute Eosinophils 0, Absolute Basophils 0.1, PUBS MCHC 33.6 Microbiology 06/21 0834 URINE ROUT: Urine Culture - ORD Assessment/Plan Assessment: This is a 86-year-old lady with past medical history significant for osteoporosis, hypothyroidism, Tamiko's thyroiditis, hypertension, osteoarthritis, rheumatoid arthritis, dysphagia who presented to the ED after having an acute onset of lower back pain is found to have compression fracture of L2 with 40% vertebral body height loss centrally. Denied any neurological or sensory deficits. Problem list/plan: #Back pain/compression fracture at the level of L2: * Spontaneous compression fracture Likely secondary to osteoporosis * She did not tolerate [place] phosphonate in past because of dysphagia. * Vitamin D checked on admission and is pending * Will manage conservatively for now, patient has been seen by orthopedics who recommended to try kyphoplasty if patient's pain does not improve with conservative management. * Continue Flexeril, Lidoderm patch, tramadol * Maintain the patient on Tylenol 1000 twice a day * Discontinued Ketorolac in case patient requires any procedure later on. * Will check MRI of lumbar spine to rule out any cord compression. Patient was reported to have urine incontinence however has been voiding without any problem since admission. #H/O Dysphagia: * On mechanical soft diet at home * Will check swallow evaluation #Abnormal UA: * Admission UA revealed WBC 15-25, with bacteria and hemoglobin. * Patient is asymptomatic * Will follow up urine culture and a repeat UA #Mild drop in H&H: * from 12.4 to 11.9. 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 Dysphagia 2. Vertebral compression fracture Pain Ratin Pain Location: Lower back Pain Goal: Pain 4 or less Pain Plan: Flexeril, Lidoderm patch, tramadol, Tylenol 1000 twice a day Tomorrow's Labs & Rationales: CBC to monitor H&H BEP to monitor electrolytes
--- NOTE | 2017-06-21 10:31 | Cons- Orthopedic ---
General Information and HPI Consulting Request Date of Consult: 06/21/17 Requested By: Gamaliel ERIC,Julia Reason for Consult: Low back pain Source of Information: patient Exam Limitations: no limitations History of Present Illness: Patient's an 86-year-old female who was doing well until about for 5 days ago when she noticed severe onset and sudden onset of low back pain. She denies any fall or trauma's. Pain became so severe she was brought emergency room. She denies any neurologic symptoms. She denies any radicular pain in her legs. She denies any weakness or numbness in her legs. Allergies/Medications Allergies: Coded Allergies: NO KNOWN ALLERGIES (08/24/16) Home Med List: Aspirin (Ecotrin*) 81 MG TABLET.DR 1 TAB PO DAILY HEART/BLOOD (Reported) Levothyroxine Sodium (Synthroid) 100 MCG TABLET 1 TAB PO DAILY THYROID ( Reported) Losartan Potassium 100 MG TABLET 1 TAB PO DAILY BP (Reported) Rosuvastatin Calcium (Crestor) 10 MG TABLET 1 TAB PO DAILY CHOLESTEROL ( Reported) Current Medications: Current Medications Sig/Arslan Start time Last Medication Dose Route Stop Time Status Admin Acetaminophen 650 MG BID PRN 06/21 1030 UNVr PO Acetaminophen 1,000 MG BID 06/21 1011 AC PO Acetaminophen 650 MG Q6P PRN 06/21 0400 DC PO Acetaminophen 1,000 MG Q6P PRN 06/21 0400 DC IV Acetaminophen 1,000 MG ONCE ONE 06/20 2230 DC 06/20 N/A 1 UNIT IV 06/20 2244 2221 Acetaminophen 0 .STK-MED ONE 06/20 2221 DC IV Atorvastatin Calcium 40 MG 1700 06/21 1700 AC PO Cyclobenzaprine HCl 5 MG TID PRN 06/21 0845 AC PO Cyclobenzaprine HCl 0 .STK-MED ONE 06/21 0049 DC PO Cyclobenzaprine HCl 5 MG ONCE ONE 06/21 0045 DC 06/21 PO 06/21 0046 0050 Heparin Sodium 5,000 UNIT Q8 06/21 0600 AC (Porcine) SC Ketorolac 15 MG Q6P PRN 06/21 0400 DC Tromethamine IV 06/26 0359 Ketorolac 0 .STK-MED ONE 06/21 0049 DC Tromethamine .ROUTE Ketorolac 15 MG ONCE ONE 06/21 0045 DC 06/21 Tromethamine IV 06/21 0046 0050 Levothyroxine Sodium 0.1 MG 0700 06/22 0700 AC PO Levothyroxine Sodium 0.1 MG DAILY 06/21 1000 DC PO Lidocaine 1 PAT DAILY 06/21 1000 AC EXT Losartan Potassium 100 MG DAILY 06/21 1000 AC PO Morphine Sulfate 0 .STK-MED ONE 06/20 2203 DC .ROUTE Morphine Sulfate 2 MG ONCE ONE 06/20 2199 DC IV 06/20 2200 Sodium Chloride 1,000 ML Q13H 06/21 0330 AC 06/21 IV 06/21 1629 0426 Tramadol HCl 25 MG Q8P PRN 06/21 0400 AC PO Past History Medical History Blood Transfusion Hx: No Neurological: NONE EENT: NONE Cardiovascular: hypertension, hyperlipidemia Respiratory: NONE Gastrointestinal: GERD, hiatal hernia Hepatic: NONE Renal: NONE Musculoskeletal: fracture Psychiatric: NONE Endocrine: HALF THYROID REMOVED Blood Disorders: NONE Cancer(s): NONE 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 Home Services at Home: None Smoking Status: Never Smoked Functional Ability ADLs Independent: dressing, eating, toileting, bathing. Ambulation: walker IADLs Unknown: shopping, housework, finances, food prep, telephone, transportation, medication admin. Exam & Diagnostic Data Vital Signs and I&O Vital Signs Date Time Temp Pulse Resp B/P B/P Pulse O2 O2 Flow FiO2 Mean Ox Delivery Rate 06/21 0432 Room Air 06/21 0410 97.6 83 18 138/64 98 06/21 0330 97.3 91 18 160/82 98 Room Air 06/21 0108 97.2 110 18 158/78 98 Room Air 06/20 2240 98.0 89 20 168/94 96 Room Air 06/20 2207 Room Air 06/20 2158 126 20 180/110 97 Room Air Intake & Output 06/21 1600 06/21 0800 06/21 0000 06/20 1600 06/20 0806/20 0000 Intake Total 465 100 Output Total Balance 465 100 Intake, IV 225 100 Intake, Oral 240 Patient 135 lb 140 lb Weight Weight Bed scale Reported by Patient Measurement Method On physical exam the patient's awake and alert. She is oriented to person place and time. Head and neck exam reveals normocephalic atraumatic skull. Pupils are equal round reactive light accommodation. Extracted movements are intact. Her neck is supple. There is no pain with range of motion of her cervical spine. There is no tennis palpation on palpation of cervical spine. Lungs exam reveals her lungs are clear bilaterally. Heart neurovascular exam reveals S1 and S2. Abdomen is round soft nontender nondistended. Bilateral upper extremity exam is within normal limits with minimal pain with range of motion of her shoulders elbows or wrists bilaterally. Her bilateral upper chamois is her with neurovascularly intact. Bilateral lower extremity exam reveals minimally painful range of motion of her hips knees and ankles. She has palpable pedal pulses bilaterally. Sensation light touch is grossly intact bilateral lower extremity's. Bilateral lower from his are grossly neurovascular intact. Palpation of her lumbar spine reveals pain on palpation of the lumbar spine in the midline at L1 L2 L3. CAT scan was reviewed today personally by myself. CAT scan reveals a compression fracture of the L2 vertebral body with no retropulsion. There is proximally 40% loss of height. Assessment/Plan Assessment/Plan 86-year-old female with a L2 vertebral body compression fracture. Treatment recommendation would be conservative treatment with pain management. Patient can consider vertebroplasty if pain is not adequately controlled with medications. Physical therapy should include mobilization as tolerated. The patient is to follow-up in my office in 4-6 weeks for repeat x-rays Consult Acknowledgment - Thank you for your consult request.
[2017-06-21 14:26] VITALS: BP 140/65
--- NOTE | 2017-06-21 14:52 | MRI REPORT ---
EXAMINATION: MR LUMBAR SPINE WITHOUT CONTRAST CLINICAL INFORMATION: Acute L2 compression fracture. Back pain and urinary incontinence. Assess for cord compression. COMPARISON: CT of the abdomen and pelvis from 07/18/2017. TECHNIQUE: MRI of the lumbar spine without contrast was obtained using routine sequences. FINDINGS: VERTEBRAL BODIES AND PARASPINAL STRUCTURES: There are 5 nonrib-bearing lumbar type vertebral bodies. There is a mild central compression deformity at L2 with associated marrow edema and mild prevertebral edema compatible with an acute to subacute time frame. No retropulsion of bony fragments into the spinal canal. Otherwise vertebral body height is maintained. There is grade 1 anterolisthesis of L5 on S1 measuring 3 mm without spondylolysis. Otherwise sagittal alignment is maintained. Marrow signal is elsewhere maintained. The discs are mildly desiccated. There is some intradiscal signal abnormality at L1-L2 and L2-L3, which may be posttraumatic. The aorta appears normal in caliber. No adenopathy. There is mild asymmetry of the psoas musculature, slightly more diminutive on the right than the left, likely related to a mild levoconvex lumbar scoliosis. There are mild degenerative changes of the imaged SI joints. The right kidney is somewhat atrophic. CONUS MEDULLARIS AND CAUDA EQUINA: The conus terminates normally at T12-L1. There is normal signal within the conus medullaris, cauda equina, and along the expected course of the filum terminale. There is no mass effect on the distal cord or conus medullaris. SPINAL LEVELS: L1-L2: The posterior disc contour is fairly normal without canal or foraminal stenosis. Mild facet hypertrophy. L2-L3: There is mild disc bulge and right greater than left disc osteophyte complex. There is facet hypertrophy. The canal is well-maintained. The left foramen is well-maintained in the right foramen is minimally narrowed. L3-L4: There are shallow bilateral foraminal protrusions and mild right greater than left disc osteophyte complex. There is facet hypertrophy. There is mild flattening of the ventral thecal sac. Mild right greater than left foraminal stenosis. L4-L5: There is disc bulge and facet hypertrophy with thickening of ligamentum flavum. There is some mild fluid signal within the right ligamentum flavum without discrete synovial cyst. There is mild trefoil type canal stenosis. Mild bilateral foraminal stenosis. L5-S1: There is grade 1 anterolisthesis with uncovering of the disc and left greater than right disc osteophyte complex. There is facet hypertrophy and left greater than right thickening of ligamentum flavum. There is mild narrowing of the left subarticular recess potentially contacting the traversing left S1 nerve root. The right foramen is well-maintained. The left foramen is mildly narrowed, potentially contacting the exiting left L5 nerve root. IMPRESSION: There is a mild acute to subacute compression deformity involving L2 without retropulsion of bony fragments. Mild lumbar spondylosis without evidence of high-grade canal or foraminal stenosis. No intrathecal abnormalities. Mild levoconvex lumbar scoliosis.
[2017-06-21 21:54] VITALS: BP 130/62
[2017-06-22 06:21] VITALS: BP 162/74
--- NOTE | 2017-06-22 09:12 | PN- Att Addend ---
Attending Addendum Attending Brief Note Pt seen and examined. She still has the pain in the back and needed a lot of convincing by the RN to take the tramadol in the morning. She is very sensitive to medications and is reluctant to take it. In addition she is complaining of a lot of urgency and frequency. Off note the initial UA done on admission showed 15-25 white cells but was nitrite negative and the repeat UA done last evening shows 10-15 white cells and now is nitrite positive. I'm worried that she is developing a cystitis. We are giving her extra strength Tylenol twice a day standing for this acute compression fracture with tramadol when necessary. We' ll give her a short course of oral Macrobid for cholecystitis and will follow-up with PT.
--- NOTE | 2017-06-22 14:43 | PN- Housestaff ---
Subjective Follow-up For: Acute spontaneous compression fracture at the level of L2 Subjective: -Patient was seen and examined. -Has been urinating frequently since last night. -Reports back pain. Pain well controlled with current pain medication regimen. -She denies headache, nausea, vomiting, dizziness, lightheadedness, chest pain, shortness of breath, abdominal pain, urinary symptoms, change in bowel habits. -UC Jun 21 positive for Gr negative rods Review of Systems Constitutional: Reports: no symptoms. Objective Last 24 Hrs of Vital Signs/I&O Vital Signs Date Time Temp Pulse Resp B/P B/P Pulse O2 O2 Flow FiO2 Mean Ox Delivery Rate 06/22 1454 98.1 86 20 98/50 95 Room Air 06/22 1032 Room Air 06/22 1027 Room Air 06/22 0831 76 162/74 06/22 0621 98.0 76 20 162/74 96 Intake & Output 06/22 1600 06/22 0800 06/22 0000 Intake Total 400 1080 Output Total 500 1125 600 Balance -100 -45 -600 Intake, IV 0 600 Intake, Oral 400 480 Number 0 3 Bowel Movements Output, Urine 500 1125 600 Physical Exam General Appearance: Alert, Cooperative, No Acute Distress Other Physical Findings: Neck: Supple Cardiovascular: Regular Rate, Normal S1, Normal S2, No Murmurs, Gallops, Rubs Lungs: Clear to Auscultation, Normal Air Movement Abdomen: Normal Bowel Sounds, Soft, No Tenderness, No Hepatospenomegaly, No Masses Neurological: Normal Gait, Normal Speech, Strength at 5/5 X4 Ext, Normal Tone, Sensation Intact, Cranial Nerves 3-12 NL, Reflexes 2+, Mild tenderness in lumbar spine Extremities: No Clubbing, No Cyanosis, No Edema, Normal Pulses, No Tenderness/ Swelling Vascular: Normal Pulses, Pulses Symmetrical Current Medications: Current Medications Sig/Arslan Start time Last Medication Dose Route Stop Time Status Admin Acetaminophen 650 MG BID PRN 06/21 1030 AC PO Acetaminophen 1,000 MG BID 06/21 1011 AC 06/22 PO 2110 Atorvastatin Calcium 40 MG 1700 06/21 1700 AC 06/22 PO 1741 Cyclobenzaprine HCl 5 MG TID PRN 06/21 0845 AC 06/22 PO 0833 Heparin Sodium 5,000 UNIT Q8 06/21 0600 AC 06/22 (Porcine) SC 2110 Levothyroxine Sodium 0.1 MG 0700 06/22 0700 AC 06/22 PO 0637 Lidocaine 1 PAT DAILY 06/21 1000 AC 06/22 EXT 1046 Losartan Potassium 100 MG DAILY 06/21 1000 AC 06/22 PO 0831 Nitrofurantoin 50 MG Q6 06/22 1200 CAN PO Tramadol HCl 25 MG Q8P PRN 06/21 0400 AC 06/22 PO 0637 Assessment/Plan Assessment: This is a 86-year-old lady with past medical history significant for osteoporosis, hypothyroidism, Tamiko's thyroiditis, hypertension, osteoarthritis, rheumatoid arthritis, dysphagia who presented to the ED after having an acute onset of lower back pain is found to have compression fracture of L2 with 40% vertebral body height loss centrally. Denied any neurological or sensory deficits. Problem list/plan: #Back pain/compression fracture at the level of L2: * Spontaneous compression fracture Likely secondary to osteoporosis * She did not tolerate [place] phosphonate in past because of dysphagia. * Vitamin D 24.6; consider starting supplements * Will manage conservatively for now, patient has been seen by orthopedics who recommended to try kyphoplasty if patient's pain does not improve with conservative management. * Continue Flexeril, Lidoderm patch, tramadol * Maintain the patient on Tylenol 1000 twice a day * Discontinued Ketorolac in case patient requires any procedure later on. * Will check MRI of lumbar spine to rule out any cord compression. Patient was reported to have urine incontinence however has been voiding without any problem since admission. #H/O Dysphagia: * On mechanical soft diet at home * Will check swallow evaluation #Abnormal UA: * Admission UA revealed WBC 15-25, with bacteria and hemoglobin. * Patient is asymptomatic * UC gram negative rods * Repeat UA positive * Nitrofurantin contraindicated in elderly with low Cr clearance. * Asymptomatic; urine frequency improved after fluids were DC'd * Will follow off ABs for now; reassess tomorrow. #Mild drop in H&H: * from 12.4 to 11.9. * Check Hemoccult * Monitor H&H #Abnormal EKG: * Asymptomatic * Admission EKG revealed sinus rhythm with Lots of PVCs, personally reviewed, has many artifacts * Will repeat an EKG #Continue with [employer] [facility] levothyroxine, losartan, simvastatin #DVT prophylaxis: Subcutaneous heparin #Patient is full code #PT recommended short-term rehabilitation Problem List: 1. Vertebral compression fracture Pain Ratin Pain Location: Back Pain Goal: Pain 4 or less Pain Plan: Flexeril, Lidoderm patch, tramadol, Tylenol 1000 twice a day Tomorrow's Labs & Rationales: CBC to monitor H&H BEP to monitor electrolytes
[2017-06-22 14:54] VITALS: BP 98/50
[2017-06-22 22:32] VITALS: BP 124/82
[2017-06-23 06:02] VITALS: BP 155/60
--- NOTE | 2017-06-23 08:14 | PN- Housestaff ---
Andressa Green 06/23/17 0814: Subjective Follow-up For: Acute spontaneous compression fracture at the level of L2 Subjective: -Patient was seen and examined. -Still has urinating frequency -Reports back pain. Pain well controlled with current pain medication regimen. -She denies headache, nausea, vomiting, dizziness, lightheadedness, chest pain, shortness of breath, abdominal pain, urinary symptoms, change in bowel habits. -UC Jun 21 positive for Gr negative rods -Afebrile w/o leukocytosis Review of Systems Constitutional: Reports: no symptoms. Objective Last 24 Hrs of Vital Signs/I&O Vital Signs Date Time Temp Pulse Resp B/P B/P Pulse O2 O2 Flow FiO2 Mean Ox Delivery Rate 06/23 1413 98.2 73 18 118/68 96 Room Air 06/23 1036 74 132/80 06/23 0602 98.3 84 18 155/60 97 Room Air 06/22 2232 99.6 88 19 124/82 96 Room Air Intake & Output 06/23 1600 06/23 0800 06/23 0000 Intake Total 910 250 480 Output Total 750 750 200 Balance 160 -500 280 Intake, IV 10 10 Intake, Oral 900 240 480 Number 0 1 Bowel Movements Output, Urine 750 750 200 Physical Exam General Appearance: Alert, Cooperative Other Physical Findings: Neck: Supple Cardiovascular: Regular Rate, Normal S1, Normal S2, No Murmurs, Gallops, Rubs Lungs: Clear to Auscultation, Normal Air Movement Abdomen: Normal Bowel Sounds, Soft, No Tenderness, No Hepatospenomegaly, No Masses Neurological: Normal Gait, Normal Speech, Strength at 5/5 X4 Ext, Normal Tone, Sensation Intact, Cranial Nerves 3-12 NL, Reflexes 2+, Mild tenderness in lumbar spine Extremities: No Clubbing, No Cyanosis, No Edema, Normal Pulses, No Tenderness/ Swelling Vascular: Normal Pulses, Pulses Symmetrical Current Medications: Current Medications Sig/Arslan Start time Last Medication Dose Route Stop Time Status Admin Acetaminophen 650 MG BID PRN 06/21 1030 AC PO Acetaminophen 1,000 MG BID 06/21 1011 AC 06/23 PO 2045 Aspirin Buffered 81 MG DAILY 06/23 1240 AC 06/23 PO 1602 Atorvastatin Calcium 40 MG 1700 06/21 1700 AC 06/23 PO 1602 Cholecalciferol 2,000 IU DAILY 06/24 1000 UNVr PO Cyclobenzaprine HCl 5 MG TID PRN 06/21 0845 AC 06/22 PO 0833 Heparin Sodium 5,000 UNIT Q8 06/21 0600 AC 06/23 (Porcine) SC 204 Levothyroxine Sodium 0.1 MG 0700 06/22 0700 AC 06/23 PO 0514 Lidocaine 1 PAT DAILY 06/21 1000 AC 06/23 EXT 1036 Losartan Potassium 100 MG DAILY 06/21 1000 AC 06/23 PO 1036 Patient Medication 1 ED ONE ONE 06/23 1530 DC 06/23 Teaching ED 06/23 1531 1530 Tramadol HCl 25 MG Q8P PRN 06/21 0400 AC 06/23 PO 0513 Trimethoprim/ 1 TAB DAILY 06/23 1000 AC 06/23 Sulfamethoxazole PO 06/25 1001 1119 Last 24 Hrs of Lab/Qamar Results Last 24 Hrs of Labs/Mics: Laboratory Tests 06/23/17 0748: Anion Gap 9, Estimated GFR 53 L, BUN/Creatinine Ratio 20.0, CBC w Diff NO MAN DIFF REQ, RBC 4.07 L, MCV 88.6, MCH 30.1, RDW 13.2, MPV 7.7, Gran % 68.6, Lymphocytes % 22.4, Monocytes % 7.3, Eosinophils % 1.3, Basophils % 0.4, Absolute Granulocytes 3.1, Absolute Lymphocytes 1.0 L, Absolute Monocytes 0.3, Absolute Eosinophils 0.1, Absolute Basophils 0, PUBS MCHC 34.0 Assessment/Plan Assessment: This is a 86-year-old lady with past medical history significant for osteoporosis, hypothyroidism, Tamiko's thyroiditis, hypertension, osteoarthritis, rheumatoid arthritis, dysphagia who presented to the ED after having an acute onset of lower back pain is found to have compression fracture of L2 with 40% vertebral body height loss centrally. Denied any neurological or sensory deficits. Problem list/plan: #Back pain/compression fracture at the level of L2: * Spontaneous compression fracture Likely secondary to osteoporosis * She did not tolerate [place] phosphonate in past because of dysphagia. * Vitamin D 24.6; starting supplements * Will manage conservatively for now, patient has been seen by orthopedics who recommended to try kyphoplasty if patient's pain does not improve with conservative management. * Continue Flexeril, Lidoderm patch, tramadol * Maintain the patient on Tylenol 1000 twice a day * MRI negative for any cord compression. #H/O Dysphagia: * On mechanical soft diet at home * Swallow evaluation checked did not recommend any change in diet #Abnormal UA: * Admission UA revealed WBC 15-25, with bacteria and hemoglobin. * Patient is asymptomatic; however has urinary frequency * UC gram negative rods * Repeat UA positive * Nitrofurantin contraindicated in elderly with low Cr clearance. * Will treat with Bactrim for cystitis #Mild drop in H&H-resolved * HB 12.3 * Check Hemoccult * Monitor H&H #Abnormal EKG: * Asymptomatic * Admission EKG revealed sinus rhythm with Lots of PVCs, personally reviewed, has many artifacts * Repeat an EKG no significant change #Continue with [facility] levothyroxine, losartan, simvastatin, restart ASA #DVT prophylaxis: Subcutaneous heparin #Patient is full code #PT recommended short-term rehabilitation; possible DC tomorrow Problem List: 1. Vertebral compression fracture Pain Ratin Pain Location: Lower back Pain Goal: Pain 4 or less Pain Plan: Flexeril, Lidoderm patch, tramadol, Tylenol 1000 twice a day Tomorrow's Labs & Rationales: None Ap ERIC,Cristina 06/23/17 0930: Attending MD Review Statement Attending Statement Attending MD Statement: examined this patient, discuss w/resident/PA/PLANT BREEDER, agreed w/resident/PA/PLANT BREEDER, reviewed EMR data (avail), discussed with nursing, discussed with case mgmt Attending Assessment/Plan: Patient is doing okay. She is participating with PT. She is on extra strength Tylenol twice a day standing and the tramadol when necessary for pain. She does have bacteria in her urine culture but I believe this is asymptomatic bacteriuria, she has no fever, no white count and since we stopped the IV fluids she's not having any urgency or frequency as well. We'll monitor that closely. She has acute compression fractures and the plan is STR in a.m.
--- NOTE | 2017-06-23 08:53 | Discharge Summary ---
Visit Information Visit Dates Admission Date: 06/21/17 Discharge Date: 06/24/2017 Hospital Course Course Attending Physician: Ap ERIC,Cristina Phillips Primary Care Physician: Luba Grimaldo APRN Consulting Request: Consulting Specialty: Orthopedics Hospital Course: This is a 86-year-old lady with past medical history significant for osteoporosis, hypothyroidism, Tamiko's thyroiditis, hypertension, osteoarthritis, rheumatoid arthritis, dysphagia who presented to the ED after having an acute onset of lower back pain is found to have compression fracture of L2 with 40% vertebral body height loss centrally. She denied any neurological or sensory deficits. Physical exam on admission: Vital Signs Date Time Temp Pulse Resp B/P B/P Pulse O2 O2 Flow FiO2 Mean Ox Delivery Rate 06/21 0432 Room Air 06/21 0410 97.6 83 18 138/64 98 06/21 0330 97.3 91 18 160/82 98 Room Air 06/21 0108 97.2 110 18 158/78 98 Room Air 06/20 2240 98.0 89 20 168/94 96 Room Air 06/20 2207 Room Air 06/20 2158 126 20 180/110 97 Room Air General Appearance Alert, Oriented X3, Cooperative, Mild Distress Skin No Rashes , No Breakdown, No Significant Lesion Skin Temp/Moisture Exam: Warm/Dry Sepsis Skin Exam (color): Normal for Ethnicity HEENT Atraumatic, PERRLA, EOMI, Mucous Membr. moist/pink Neck Supple, No JVD, No thryomegaly, +2 Carotid Pulse wo Bruit Lymphatic Cervical nl Cardiovascular Regular Rate, Normal S1, Normal S2, No Murmurs Lungs Normal Air Movement Abdomen Normal Bowel Sounds, Soft, No Tenderness, No Hepatospenomegaly Neurological Normal Speech, Strength at 5/5 X4 Ext, Normal Tone, Sensation Intact, Cranial Nerves 3-12 NL, Reflexes 2+, rectal tone present, no sensory deficits., tenderness in her lumbar spinal area. Extremities No Clubbing, No Cyanosis, No Edema, Normal Pulses, No Tenderness/Swelling Vascular Pulses Symmetrical Sepsis Peripheral Pulse Location: Dorsalis Pedis Pertinent Labs on admission: 06/21/17 0643: Anion Gap 9, Estimated GFR 47 L, BUN/Creatinine Ratio 24.5, CBC w Diff NO MAN DIFF REQ, RBC 4.01 L, MCV 88.9, MCH 29.8, RDW 13.2, MPV 7.6, Gran % 71.0, Lymphocytes % 19.3 L, Monocytes % 8.6, Eosinophils % 0.6, Basophils % 0.5, Absolute Granulocytes 5.6, Absolute Lymphocytes 1.5, Absolute Monocytes 0.7 H, Absolute Eosinophils 0.1, Absolute Basophils 0, PUBS MCHC 33.5 Pertinent Imaging: Other Results CAT - CT ABD & PELVIS ANGIOGRAM 1. Acute compression fracture at L2 with 40% vertebral body height loss centrally. No bony retropulsion. 2. Extensive atherosclerotic vascular calcification without aortic aneurysm or dissection. An addendum to this report will be performed in the morning by a subspecialty trained vascular radiologist. 3. Moderate hiatal hernia. 4. Cholelithiasis without acute cholecystitis. 5. Sigmoid diverticulosis without diverticulitis. EKG Results NSR. The following problems were addressed during the course of her hospital stay: #Back pain/compression fracture at the level of L2: The patient presented with spontaneous compression fracture Likely secondary to osteoporosis. She did not tolerate Bisophosphonate in past because of dysphagia. The patient was seen by orhto who recommended conservative management and if no improvement consider kyphoplasty. MRI was negative for any cored compression. The patient did not like strong pain medications. Her back pain was managed well with Flexeril PRN, Lidoderm patch, Tramadol PRN and Tylenol 1000 twice a day scheduled. Vitamin D level was low(24.6); she was started on vitamin D supplement. She was evaluated by PT who recommended STR. She should follow with ortho as outpatient for reapt imaging. #H/O Dysphagia: She is on mechanical soft diet at home. Formal swallow evaluation performend. They did not recommend any change in diet #Cystitis: Admission UA revealed WBC 15-25, with bacteria and hemoglobin but negative nitrite. Repeat UA was positive for nitrite. UC was positive for E.Coli sensitive to Bactrim. The patient did not have any urinary symptoms except urine frequency. Frequent urination was initially attribitued to receiving IV fluids however, it persisted after IV fluids were discontinued. Therefore she was started on Bacrim DS for cystitis. Dose of Bactrim was adjusted based on patient's age and renal function. #Noted to have mild drop in H&H on day 2 of hospital stay from 12.4 to 11.9 . Repeat CBC revealed Hb of 12.3. #Abnormal EKG: Asymptomatic. Admission EKG revealed sinus rhythm with Lots of PVCs, with many artifacts. Repeat an EKG no significant change #We continued levothyroxine, losartan, simvastatin. ASA was initially held, but was restarted on Jun 23. #DVT prophylaxis: Subcutaneous heparin #Code status: Full code Allergies: Coded Allergies: NO KNOWN ALLERGIES (08/24/16) Significant Procedures: EXAM TYPE: MRI - MRI-LUMBAR SPINE VERTEBRAL BODIES AND PARASPINAL STRUCTURES: There are 5 nonrib-bearing lumbar type vertebral bodies. There is a mild central compression deformity at L2 with associated marrow edema and mild prevertebral edema compatible with an acute to subacute time frame. No retropulsion of bony fragments into the spinal canal. Otherwise vertebral body height is maintained. There is grade 1 anterolisthesis of L5 on S1 measuring 3 mm without spondylolysis. Otherwise sagittal alignment is maintained. Marrow signal is elsewhere maintained. The discs are mildly desiccated. There is some intradiscal signal abnormality at L1-L2 and L2-L3, which may be posttraumatic. The aorta appears normal in caliber. No adenopathy. There is mild asymmetry of the psoas musculature, slightly more diminutive on the right than the left, likely related to a mild levoconvex lumbar scoliosis. There are mild degenerative changes of the imaged SI joints. The right kidney is somewhat atrophic. CONUS MEDULLARIS AND CAUDA EQUINA: The conus terminates normally at T12-L1. There is normal signal within the conus medullaris, cauda equina, and along the expected course of the filum terminale. There is no mass effect on the distal cord or conus medullaris. SPINAL LEVELS: L1-L2: The posterior disc contour is fairly normal without canal or foraminal stenosis. Mild facet hypertrophy. L2-L3: There is mild disc bulge and right greater than left disc osteophyte complex. There is facet hypertrophy. The canal is well-maintained. The left foramen is well-maintained in the right foramen is minimally narrowed. L3-L4: There are shallow bilateral foraminal protrusions and mild right greater than left disc osteophyte complex. There is facet hypertrophy. There is mild flattening of the ventral thecal sac. Mild right greater than left foraminal stenosis. L4-L5: There is disc bulge and facet hypertrophy with thickening of ligamentum flavum. There is some mild fluid signal within the right ligamentum flavum without discrete synovial cyst. There is mild trefoil type canal stenosis. Mild bilateral foraminal stenosis. L5-S1: There is grade 1 anterolisthesis with uncovering of the disc and left greater than right disc osteophyte complex. There is facet hypertrophy and left greater than right thickening of ligamentum flavum. There is mild narrowing of the left subarticular recess potentially contacting the traversing left S1 nerve root. The right foramen is well-maintained. The left foramen is mildly narrowed, potentially contacting the exiting left L5 nerve root. IMPRESSION: There is a mild acute to subacute compression deformity involving L2 without retropulsion of bony fragments. Mild lumbar spondylosis without evidence of high-grade canal or foraminal stenosis. No intrathecal abnormalities. Mild levoconvex lumbar scoliosis. Pertinent Lab Results: Laboratory Tests 06/23/17 0748: Anion Gap 9, Estimated GFR 53 L, BUN/Creatinine Ratio 20.0, CBC w Diff NO MAN DIFF REQ, RBC 4.07 L, MCV 88.6, MCH 30.1, RDW 13.2, MPV 7.7, Gran % 68.6, Lymphocytes % 22.4, Monocytes % 7.3, Eosinophils % 1.3, Basophils % 0.4, Absolute Granulocytes 3.1, Absolute Lymphocytes 1.0 L, Absolute Monocytes 0.3, Absolute Eosinophils 0.1, Absolute Basophils 0, PUBS MCHC 34.0 Disposition Summary Disposition Principal Diagnosis: Compression fracture at the level of L2 Additional Diagnosis: Back pain Cystitis Discharge Disposition: SNF Discharge Instructions General Discharge Information Code Status: Full Code Patient's Diet: Mechanical soft Pureed food as desired Patient's Activity: As tolerated, work with physical therapy Follow-Up Instructions/Appts: Medications at Discharge Discharge Medications: Continue taking these medications: Levothyroxine Sodium (Synthroid) 100 MCG TABLET 1 Tablet ORAL DAILY Comments: Last Taken:06/24/17 Time:5:40 AM Losartan Potassium (Losartan Potassium) 100 MG TABLET 1 Tablet ORAL DAILY Comments: Last Taken:06/24/17 Time:8:38 AM Aspirin (Ecotrin*) 81 MG TABLET.DR 1 Tablet ORAL DAILY Comments: Last Taken:06/24/17 Time:8:37 AM Rosuvastatin Calcium (Crestor) 10 MG TABLET 1 Tablet ORAL DAILY Comments: NOT GIVEN Start taking the following new medications: Sulfamethoxazole/Trimethoprim (Sulfamethoxazole-Tmp Ds Tablet) 800 MG-160 MG TABLET 1 Tablet ORAL DAILY Qty = 2 No Refills Cyclobenzaprine HCl (Cyclobenzaprine HCl) 5 MG TABLET 1 Tablet ORAL DAILY as needed for Back pain/spasm Qty = 5 No Refills Comments: Last Taken:06/22/17 Time:8:33 AM Lidocaine (Lidoderm) 5 % ADH..PATCH 1 Patch On the skin DAILY Qty = 7 No Refills Instructions: may wear up to 12 hours Acetaminophen (Acetaminophen Extra Strength) 500 MG TABLET 2 Tablet ORAL TWICE DAILY Qty = 14 No Refills Tramadol HCl (Ultram) 50 MG TABLET 0.5 Tablet ORAL EVERY 8 HOURS NEEDED as needed for Back pain Qty = 10 No Refills Comments: Last Taken:06/23/17 Time:5:13 AM Cholecalciferol (Vitamin D3) (Vitamin D) 2,000 UNIT CAPSULE 1 Capsule ORAL DAILY Qty = 30 No Refills Copies To: Luba Grimaldo APRN Attending MD Review Statement Documenting Attending: Tyson Quintanilla MD Other Findings: The patient was seen and agree with the above summary of care.
[2017-06-23 09:35] LABS: ABSOLUTE BASOPHIL COUNT 0 /CUMM (0.0-0.2); ABSOLUTE EOSINOPHIL COUNT 0.1 /CUMM (0.0-0.7); ABSOLUTE GRANULOCYTE CT 3.1 /CUMM (1.4-6.5); ABSOLUTE MONOCYTE COUNT 0.3 /CUMM (0.10-0.60); BASOPHIL % 0.4 % (0.0-2.0); EOSINOPHIL % 1.3 % (0-5); GRANULOCYTE % 68.6 % (42.2-75.2); MEAN CORPUSCULAR HGB 30.1 PG (27.0-31.0); MEAN CORPUSCULAR VOLUME 88.6 FL (81.0-99.0); MEAN PLATELET VOLUME 7.7 FL (7.4-10.4); PLATELET COUNT 307 /CUMM (130-400); RBC DISTRIBUTION WIDTH 13.2 % (11.5-14.5); RED BLOOD CELL CT 4.07 /CUMM (4.20-5.40); WHITE BLOOD CELL COUNT 4.6 /CUMM (4.8-10.8)
--- NOTE | 2017-06-23 12:42 | Patient Discharge Instructions ---
Discharge Instructions General Discharge Information You were seen/treated for: Back pain/compression fracture at the level of L2 Special Instructions: Diet Recommended Diet: Heart Healthy Additional DIET Information: Mechanical soft Pureed food as desired. Activity Additional ACTIVITY Info: As tolerated, work with physical therapy Acute Coronary Syndrome Inclusion Criteria At DC or during hospital stay patient has or had the following: ACS DIAGNOSIS No Discharge Core Measures Meds if any: Prescribed or Continued at Discharge Meds if any: NOT Prescribed or Continued at Discharge Congestive Heart Failure Inclusion Criteria At DC or during hospital stay patient has or had the following: CHF DIAGNOSIS No Discharge Core Measures Meds if any: Prescribed or Continued at Discharge Meds if any: NOT Prescribed or Continued at Discharge Cerebrovascular accident Inclusion Criteria At DC or during hospital stay patient has or had the following: CVA/TIA Diagnosis No Discharge Core Measures Meds if any: Prescribed or Continued at Discharge Meds if any: NOT Prescribed or Continued at Discharge Venous thromboembolism Inclusion Criteria VTE Diagnosis No VTE Type NONE VTE Confirmed by (Test) NONE Discharge Core Measures - Per Current guidelines, there needs to be overlap - treatment for the first 5 days of Warfarin therapy. - If discharged on Warfarin prior to 5 days of - overlap therapy, the patient will need to be - assessed for post discharge needs including - *Post discharge parental anticoagulation - *Warfarin and/or parental anticoagulation education - *Follow up date to check INR post discharge At least 5 days overlap therapy as Inpatient No Meds if any: Prescribed or Continued at Discharge Note: Overlap Therapy is Warfarin and Anticoagulant Meds if any: NOT Prescribed or Continued at Discharge
[2017-06-23] MEDS ORDERED: SULFAMETHOXAZO1 EAC1 PO (12:49)
[2017-06-23] MEDS ORDERED: LIDODERM1 EACH TOP (12:49)
[2017-06-23] MEDS ORDERED: ACETAMINOPHEN500 M3 PO (12:49)
[2017-06-23] MEDS ORDERED: CYCLOBENZAPRINE5 M2 PO (12:49)
[2017-06-23] MEDS ORDERED: ULTRAM50 M1 PO (13:23)
[2017-06-23 14:13] VITALS: BP 118/68
[2017-06-23] MEDS ORDERED: VITAMIN D2000 UNIT PO (22:10)
[2017-06-23 22:24] VITALS: BP 120/60
[2017-06-24 07:19] VITALS: BP 148/70
--- NOTE | 2017-06-24 09:58 | PN- Housestaff ---
Dakota De La Torre 06/24/17 0958: Subjective Follow-up For: Acute spontaneous compression fracture at the level of L2 Subjective: There were no acute events overnight. This morning Mrs. Ramirez endorses intermittent episodes of back pain made worse with movement but denies any constipation, urinary incontinence, numbness/new onset weakness in the lower extremities, fevers or chills. Review of Systems Constitutional: Reports: see HPI. EENTM: Reports: no symptoms. Cardiovascular: Reports: no symptoms. Respiratory: Reports: no symptoms. Gastrointestinal: Reports: no symptoms. Genitourinary: Reports: no symptoms. Musculoskeletal: Reports: see HPI. Skin: Reports: no symptoms. Objective Last 24 Hrs of Vital Signs/I&O Vital Signs Date Time Temp Pulse Resp B/P B/P Pulse O2 O2 Flow FiO2 Mean Ox Delivery Rate 06/24 0838 71 148/70 06/24 0719 98.0 71 20 148/70 97 06/23 2224 98.3 80 19 120/60 95 Room Air 06/23 1413 98.2 73 18 118/68 96 Room Air Intake & Output 06/24 1600 06/24 0800 06/24 0000 Intake Total 900 Output Total 450 1250 Balance -450 -350 Intake, Oral 900 Output, Urine 450 1250 Physical Exam General Appearance: Alert, Cooperative, No Acute Distress Skin: No Breakdown HEENT: Mucous Membr. moist/pink Cardiovascular: Regular Rate, Normal S1, Normal S2 Lungs: Clear to Auscultation, Normal Air Movement Abdomen: Normal Bowel Sounds, Soft, No Tenderness Neurological: Normal Speech, Normal Tone, Sensation Intact Extremities: No Edema, Normal Pulses Vascular: Pulses Symmetrical Current Medications: Current Medications Sig/Arslan Start time Last Medication Dose Route Stop Time Status Admin Acetaminophen 650 MG BID PRN 06/21 1030 AC PO Acetaminophen 1,000 MG BID 06/21 1011 AC 06/24 PO 0839 Aspirin Buffered 81 MG DAILY 06/23 1240 AC 06/24 PO 0837 Atorvastatin Calcium 40 MG 1700 06/21 1700 AC 06/23 PO 1602 Cholecalciferol 2,000 IU DAILY 06/24 1000 AC 06/24 PO 0839 Cyclobenzaprine HCl 5 MG TID PRN 06/21 0845 AC 06/22 PO 0833 Heparin Sodium 5,000 UNIT Q8 06/21 0600 AC 06/24 (Porcine) SC 0540 Levothyroxine Sodium 0.1 MG 0700 06/22 0700 AC 06/24 PO 0540 Lidocaine 1 PAT DAILY 06/21 1000 AC 06/24 EXT 0841 Losartan Potassium 100 MG DAILY 06/21 1000 AC 06/24 PO 0838 Patient Medication 1 ED ONE ONE 06/23 1530 DC 06/23 Teaching ED 06/23 1531 1530 Tramadol HCl 25 MG Q8P PRN 06/21 0400 AC 06/23 PO 0513 Trimethoprim/ 1 TAB DAILY 06/23 1000 AC 06/24 Sulfamethoxazole PO 06/25 1001 0838 Assessment/Plan Assessment: This is a 86-year-old lady with past medical history significant for osteoporosis, hypothyroidism, Tamiko's thyroiditis, hypertension, osteoarthritis, rheumatoid arthritis, dysphagia who presented to the ED after having an acute onset of lower back pain is found to have compression fracture of L2 with 40% vertebral body height loss centrally. Denied any neurological or sensory deficits. Problem list/plan: #Back pain/compression fracture at the level of L2: * Pain is well controlled at this time. No complaints of urinary/bowel incontinence/retention. * Will manage conservatively for now, patient has been seen by orthopedics who recommended to try kyphoplasty if patient's pain does not improve with conservative management. * Continue Flexeril, Lidoderm patch, tramadol Problem List: 1. Vertebral compression fracture Pain Ratin Pain Location: Lower back Pain Goal: Pain 4 or less Pain Plan: Pain pathway Tomorrow's Labs & Rationales: None required. Stable for discharge DVT/Prophylaxis: pharmacological Consulting Request: Consulting Specialty: Orthopedics Discharge Plan Discharge Disposition: STR/NH Stable for Discharge? Yes Anticipated Discharge (Day): today If Discharged Today/In 24 Hrs: enter [facility] discharge ord, W-10/discharge paper done, DC summary done, CMR done Tyson Quintanilla MD 06/24/172124: Attending Review Statement Attending Statement Attending MD Statement: examined this patient, discuss w/resident/PA/FOOD AND NUTRITION PROFESSOR, agreed w/resident/PA/FOOD AND NUTRITION PROFESSOR, reviewed EMR data (avail), discussed with case mgmt, amended to note Attending Assessment/Plan: The patient was seen and discussed with house staff. Is comfortable with current pain management. OK to transfer to [facility] today ([facility]). Consulting Request: Consulting Specialty: Orthopedics Tyson Quintanilla MD 06/24/172124: Attending MD Review Statement Attending Statement Attending MD Statement: examined this patient, discuss w/resident/PA/FOOD AND NUTRITION PROFESSOR, agreed w/resident/PA/FOOD AND NUTRITION PROFESSOR, reviewed EMR data (avail), discussed with case mgmt, amended to note Attending Assessment/Plan: The patient was seen and discussed with house staff. Is comfortable with current pain management. OK to transfer to [facility] today ([facility]).
[2017-06-24 13:20] VITALS: BP 148/70
== END 2017-06-24 13:43 | DRG 544 ==
LOC: ERH 21:45 → 2NB 06-21 02:42 → ERHI 06-21 02:42 → ENRESERV 06-21 03:26 → 2NB 06-21 04:01 → ENPENDDIS 06-24 11:09 → 2NB 06-24 13:43
PROVIDERS: Emergency Medicine; Internal Medicine
DX: M80.08XA Age-related osteoporosis with current pathological fracture, vertebra(e), initial encounter for fracture (principal); M06.9 Rheumatoid arthritis, unspecified; E86.0 Dehydration; N30.90 Cystitis, unspecified without hematuria; R13.10 Dysphagia, unspecified; K21.9 Gastro-esophageal reflux disease without esophagitis; E06.3 Autoimmune thyroiditis; I12.9 Hypertensive chronic kidney disease with stage 1 through stage 4 chronic kidney disease, or unspecified chronic kidney disease; N18.3 Chronic kidney disease, stage 3 (moderate); M40.209 Unspecified kyphosis, site unspecified; K44.9 Diaphragmatic hernia without obstruction or gangrene; K57.30 Diverticulosis of large intestine without perforation or abscess without bleeding; E03.9 Hypothyroidism, unspecified; E78.5 Hyperlipidemia, unspecified
CPT/HCPCS: 2NBP; 72148; 36415; 74174; 81001; 82436; 87086; 93005; 93010; 96374; 96375; 97110-GO; 97112-GO; 97116-GO; 97161-GP; 97530-GO; J0131; J1644; J1885; J3490

== ENCOUNTER 2017-10-17 13:43 | Inpatient (IN) | payer OTHER, MEDICARE ==
[~2017-10-17] VITALS: Ht 162.6 cm; Wt 66.9 kg
[~2017-10-17 13:43] MED LIST changes: +ACETAMINOPHEN500 M3 PO; +CYCLOBENZAPRINE5 M2 PO; +LIDODERM1 EACH TOP; +SULFAMETHOXAZO1 EAC1 PO; +ULTRAM50 M1 PO; +VITAMIN D2000 UNIT PO
--- NOTE | 2017-10-17 14:09 | ED NECK/BACK PAIN COMPLAINT ---
History of Present Illness General Chief Complaint: Lower Extremity Problems Stated Complaint: BIBA NUMBNESS IN LEGS Source: patient, family, old records Exam Limitations: no limitations Vital Signs & Intake/Output Vital Signs & Intake/Output Vital Signs Date Time Temp Pulse Resp B/P B/P Pulse O2 O2 Flow FiO2 Mean Ox Delivery Rate 10/17 1849 98.3 99 17 149/72 96 Room Air 10/17 1703 91 157/70 10/17 1449 89 125/61 95 Room Air 10/17 1442 120 177/78 10/17 1346 98.1 109 17 161/95 97 Room Air Allergies Coded Allergies: NO KNOWN ALLERGIES (08/24/16) Reconcile Medications Acetaminophen (Acetaminophen Extra Strength) 500 MG TABLET 2 TAB PO BID Back pain Aspirin (Ecotrin*) 81 MG TABLET.DR 1 TAB PO DAILY HEART/BLOOD (Reported) Cholecalciferol (Vitamin D3) (Vitamin D) 2,000 UNIT CAPSULE 1 CAP PO DAILY Supplement Cyclobenzaprine HCl 5 MG TABLET 1 TAB PO DAILY PRN Back pain/spasm Levothyroxine Sodium (Synthroid) 100 MCG TABLET 1 TAB PO DAILY THYROID ( Reported) Lidocaine (Lidoderm) 5 % ADH..PATCH 1 PAT TOP DAILY Back pain may wear up to 12 hours Losartan Potassium 100 MG TABLET 1 TAB PO DAILY BP (Reported) Rosuvastatin Calcium (Crestor) 10 MG TABLET 1 TAB PO DAILY CHOLESTEROL ( Reported) Tramadol HCl (Ultram) 50 MG TABLET 0.5 TAB PO Q8P PRN Back pain Triage Note: PT TO ED BY AMBULANCE WITH C/O BILATERAL LEG NUMBNESS, RIGHT WORSE THAN LEFT. ABLE TO MOVE BOTH LEGS. 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 TACHYCARDIC 120S-130S ON ARRIVAL. NEURO CHECK INTACT. Triage Nurses Notes Reviewed? yes Onset: Abrupt Duration: day(s):, constant Timing: recent history Location: lumbar spine HPI: 86-year-old female comes into the emergency room with complaints of increased right lower back pain that radiates to her right leg. Symptoms began over the last couple days. She reports that back in June of this year she had fractures in her low back. She reports that she lives by herself. She's had some increased weakness to her legs and tingling in her legs. She was having difficulty with any ambulation today. This is not normal for her. She reports that the symptoms have resolved and her left leg but now she feels in her right leg. She denies any chest pain abdominal pain shortness of breath fever chills vomiting dizziness. (Mike Flores) Past History Travel History Traveled to [place] past 21 day No Medical History Any Pertinent Medical History? 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 No (Mike Flores) Review of Systems Review of Systems Constitutional: Reports: no symptoms. Eyes: Reports: no symptoms. Ears, Nose, Throat, Mouth: Reports: no symptoms. Respiratory: Reports: no symptoms. Cardiovascular: Reports: no symptoms. Gastrointestinal/Abdominal: Reports: no symptoms. Musculoskeletal: Reports: see HPI. Skin: Reports: no symptoms. Neurological/Psychological: Reports: see HPI. All Other Systems: Reviewed and Negative (Mike Flores) Physical Exam Physical Exam General Appearance: alert, awake, mild distress Head: atraumatic Eyes: Bilateral: normal appearance, EOMI. Ears, Nose, Throat, Mouth: hearing grossly normal, moist mucous membrane Neck: normal inspection Respiratory: normal breath sounds, no respiratory distress Cardiovascular: irregularly irregular Gastrointestinal: soft, non-tender Back: severe scoliosis and kyphosis Extremities: normal range of motion Neurologic/Psych: awake, alert, oriented x 3, normal mood/affect, 4-5 strength right lower extremity, 5 out of 5 strength of lower trauma, decreased sensation in right leg, pulses intact, Skin: intact, normal color, warm/dry Core Measures CVA/TIA Diagnosis: No (Mike Flores) Progress Differential Diagnosis: cauda equina syn, herniated disc, myofascial strain, pyelo/UTI, sciatica, spinal cord inj, thoracic outlet syn, uti Plan of Care: Orders Procedure Date/time Status ECHOCARDIOGRAM 10/18 1851 Active Add-on Test (ER Only) 10/17 185 Active URINALYSIS 10/17 1405 Complete MAGNESIUM 10/17 1400 Complete B-TYPE NATRIURETIC PEP (BNP) 10/17 1400 Complete TROPONIN LEVEL 10/17 1358 Complete PARTIAL THROMBOPLASTIN TIME 10/17 135 Complete PROTHROMBIN TIME 10/17 135 Complete COMPREHENSIVE METABOLIC PANEL 10/17 135 Complete CBC WITHOUT DIFFERENTIAL 10/17 135 Complete EKG 10/17 1348 Active Current Medications Sig/Arslan Start time Last Medication Dose Stop Time Status Admin Heparin Sodium 25,000 UNIT Q24H 10/17 1814 UNVr 10/17 (Porcine) 184 (Heparin) Sodium Chloride 500 ML Laboratory Tests 10/17/171817: Urine Color YEL, Urine Clarity CLEAR, Urine pH 6.0, Ur Specific [place] 1.010, Urine Protein NEG, Urine Ketones NEG, Urine Nitrite NEG, Urine Bilirubin NEG, Urine Urobilinogen 0.2, Ur Leukocyte Esterase NEG, Ur Microscopic SEDIMENT EXAMINED, Urine RBC RARE, Urine WBC RARE, Ur Epithelial Cells FEW, Urine Bacteria PACKD H, Urine Mucus FEW, Urine Hemoglobin SMALL H, Urine Glucose NEG 10/17/17 1400: Anion Gap 16, Estimated GFR 60, BUN/Creatinine Ratio 13.3, Glucose 156 H, Calcium 9.0, Magnesium 1.5 L, Total Bilirubin 0.9, AST 35, ALT 47, Alkaline Phosphatase 96, Troponin I 0.01, Aan-C-Cwcoooqnagg Pept 4660 H, Total Protein 6.6, Albumin 4.0, Globulin 2.6, Albumin/Globulin Ratio 1.5, PT 11.8, INR 1.08, APTT 43 H, CBC w Diff NO MAN DIFF REQ, RBC 3.76 L, MCV 89.1, MCH 29.2, MCHC 32.7 L, RDW 13.6, MPV 7.8, Gran % 68.1, Lymphocytes % 24.3, Monocytes % 4.7, Eosinophils % 2.2, Basophils % 0.7, Absolute Granulocytes 5.0, Absolute Lymphocytes 1.8, Absolute Monocytes 0.3, Absolute Eosinophils 0.2, Absolute Basophils 0.1 Diagnostic Imaging: Viewed by Me: Radiology Read, CT Scan. Discussed w/RAD: Radiology Read, CT Scan. Radiology Impression: PATIENT: YESSICA YIN PRESENT AGE: 86 PATIENT ACCOUNT NO: [id number] : 32 LOCATION: [facility] ORDERING PHYSICIAN: Mike GRUBER SERVICE DATE: 10/17/173992 EXAM TYPE : CAT - CT LUMB SPINE WO IV CONTRAST EXAMINATION: CT LUMBAR SPINE WITHOUT CONTRAST CLINICAL INFORMATION: Low back pain. COMPARISON: MRI lumbar spine from 06/21/2017. TECHNIQUE: Helical non-contrast CT images were obtained through the lumbar spine and 1.25 and 2.5 mm axial reconstructions were reviewed along with sagittal and coronal MPRs. DLP: 945.45 mGy-cm FINDINGS: There has been a further loss of vertebral body height at the L2 level with a significant biconcave compression fracture deformity, now measuring 6 mm craniocaudal centrally, compared to 14 mm CC on the prior MRI study. Mild bony retropulsion is evident. There is vacuum disc phenomenon at L1-L2 and L2-L3. Sclerotic changes are noted within the L2 vertebral body. No additional compression fractures are seen. There is a leftward curvature of the lumbar spine centered at the L2 level. Bony demineralization is evident with multilevel facet arthropathy. A very mild anterior subluxation is stable at L5-S1. Degree of spondylosis is otherwise unchanged compared to the previous MRI. There are partially visualized bilateral pleural effusions. A hiatal hernia is also incompletely assessed. Scattered vascular calcifications are present. There is extensive sigmoid colonic diverticulosis. There are mild degenerative changes of the sacroiliac joints bilaterally. No significant paraspinal soft tissue inflammatory changes are seen. IMPRESSION: Acute versus subacute severe biconcave compression fracture superimposed upon a chronic injury at L2 with a further loss of vertebral body height centrally and mild bony retropulsion. No significant central canal stenosis. Stable spondylitic changes elsewhere in the lumbar spine. Bilateral pleural effusions. Hiatal hernia. Extensive sigmoid colonic diverticulosis. DICTATED BY: Lalito Francis MD DATE/TIME DICTATED:10/17/171657 KICK PRESS OPERATOR:JOSE JUAN DATE/TIME TRANSCRIBED:10/17/171657 CONFIDENTIAL, DO NOT COPY WITHOUT APPROPRIATE AUTHORIZATION. <Electronically signed in Other Vendor System> SIGNED BY: Lalito Francis MD 10/17/17 6321, PATIENT: YESSICA YIN PRESENT AGE: 86 PATIENT ACCOUNT NO: [id number] : 32 LOCATION: [facility] ORDERING PHYSICIAN: Mike GRUBER SERVICE DATE: 10/17/17 EXAM TYPE: RAD - XRY-PORTABLE CHEST XRAY EXAMINATION : XR PORTABLE CHEST CLINICAL INFORMATION: Weakness. New onset flutter COMPARISON : Chest x-ray 07/31/2013 TECHNIQUE: Portable frontal view of the chest was obtained. 2:03 PM FINDINGS: Lung volume low. There is mild increased pulmonary vascularity with a small right pleural effusion. This is new since prior chest x -ray. No focal consolidation. IMPRESSION: Mild increased pulmonary vascularity with small right pleural effusion. DICTATED BY: Steven Schafer MD DATE/TIME DICTATED:10/17/171453 KICK PRESS OPERATOR:JOSE JUAN DATE/TIME TRANSCRIBED:1453 CONFIDENTIAL, DO NOT COPY WITHOUT APPROPRIATE AUTHORIZATION. < Electronically signed in Other Vendor System> SIGNED BY: Steven Schafer MD 1458 Initial ED EKG: rate (127), AFIB (Mike Flores) Departure Departure Disposition: STILL A PATIENT Condition: Stable Clinical Impression Primary Impression: New onset a-fib Secondary Impressions: Lumbar radiculopathy, acute Referrals: Luba Grimaldo APRN (PCP/Family) Departure Forms: Customer Survey General Discharge Information Admission Note [facility] Documentation of Exam: Documentation of any treatments & extenuating circumstances including Concerns Regarding Discharge (functional status, medication knowledge or non-compliance, living conditions, etc.) that warrant an admission rather than observation: Cardec telemetry. IV heparin. Cardiology consultation. Physical therapy consultation. Pain control.ortho consultation (Mike Flores) PA/DIE CAST DIE MAKER Co-Sign Statement Statement: ED Attending supervision documentation- x I saw and evaluated the patient. I have also reviewed all the pertinent lab results and diagnostic results. I agree with the findings and the plan of care as documented in the PA's/DIE CAST DIE MAKER's documentation. Low back pain with new onset A. fib compression fractures on CT [] I have reviewed the ED Record and agree with the PA's/DIE CAST DIE MAKER's documentation. [] Additions or exceptions (if any) to the PAs/DIE CAST DIE MAKER's note and plan are summarized below: [] (Brett ERIC,Wilbert)
[2017-10-17 14:12] LABS: ABSOLUTE BASOPHIL COUNT 0.1 /CUMM (0.0-0.2); ABSOLUTE EOSINOPHIL COUNT 0.2 /CUMM (0.0-0.7); ABSOLUTE LYMPH COUNT 1.8 /CUMM (1.2-3.4); ABSOLUTE MONOCYTE COUNT 0.3 /CUMM (0.10-0.60); BASOPHIL % 0.7 % (0.0-2.0); EOSINOPHIL % 2.2 % (0-5); GRANULOCYTE % 68.1 % (42.2-75.2); HEMATOCRIT 33.5 % (37-47); MEAN CORPUSCULAR HGB 29.2 PG (27.0-31.0); MEAN CORPUSCULAR HGB CONC 32.7 G/DL (33.0-37.0); MEAN CORPUSCULAR VOLUME 89.1 FL (81.0-99.0); MEAN PLATELET VOLUME 7.8 FL (7.4-10.4); PLATELET COUNT 325 /CUMM (130-400); RBC DISTRIBUTION WIDTH 13.6 % (11.5-14.5); RED BLOOD CELL CT 3.76 /CUMM (4.20-5.40); WHITE BLOOD CELL COUNT 7.4 /CUMM (4.8-10.8)
[2017-10-17 14:44] LABS: PT 11.8 SEC (9.4-12.5)
[2017-10-17 14:45] LABS: PTT 43 SEC (25-37)
--- NOTE | 2017-10-17 14:59 | RADIOLOGY REPORT ---
EXAMINATION: XR PORTABLE CHEST CLINICAL INFORMATION: Weakness. New onset flutter COMPARISON: Chest x-ray 07/31/2013 TECHNIQUE: Portable frontal view of the chest was obtained. 2:03 PM FINDINGS: Lung volume low. There is mild increased pulmonary vascularity with a small right pleural effusion. This is new since prior chest x-ray. No focal consolidation. IMPRESSION: Mild increased pulmonary vascularity with small right pleural effusion.
--- NOTE | 2017-10-17 17:30 | CT SCAN REPORT ---
EXAMINATION: CT LUMBAR SPINE WITHOUT CONTRAST CLINICAL INFORMATION: Low back pain. COMPARISON: MRI lumbar spine from 06/21/2017. TECHNIQUE: Helical non-contrast CT images were obtained through the lumbar spine and 1.25 and 2.5 mm axial reconstructions were reviewed along with sagittal and coronal MPRs. DLP: 945.45 mGy-cm FINDINGS: There has been a further loss of vertebral body height at the L2 level with a significant biconcave compression fracture deformity, now measuring 6 mm craniocaudal centrally, compared to 14 mm CC on the prior MRI study. Mild bony retropulsion is evident. There is vacuum disc phenomenon at L1-L2 and L2-L3. Sclerotic changes are noted within the L2 vertebral body. No additional compression fractures are seen. There is a leftward curvature of the lumbar spine centered at the L2 level. Bony demineralization is evident with multilevel facet arthropathy. A very mild anterior subluxation is stable at L5-S1. Degree of spondylosis is otherwise unchanged compared to the previous MRI. There are partially visualized bilateral pleural effusions. A hiatal hernia is also incompletely assessed. Scattered vascular calcifications are present. There is extensive sigmoid colonic diverticulosis. There are mild degenerative changes of the sacroiliac joints bilaterally. No significant paraspinal soft tissue inflammatory changes are seen. IMPRESSION: Acute versus subacute severe biconcave compression fracture superimposed upon a chronic injury at L2 with a further loss of vertebral body height centrally and mild bony retropulsion. No significant central canal stenosis. Stable spondylitic changes elsewhere in the lumbar spine. Bilateral pleural effusions. Hiatal hernia. Extensive sigmoid colonic diverticulosis.
--- NOTE | 2017-10-17 18:24 | Cons- Cardiology ---
General Information and HPI Consulting Request Date of Consult: 10/17/17 Requested By: ALLYN Connell Reason for Consult: "New-onset atrial fibrillation" in a patient who presents with back pain Source of Information: patient Exam Limitations: no limitations History of Present Illness: The patient is a 86-year-old female with underlying hypertension. She presents with back pain and leg weakness. She was incidentally found to have an irregular heart rhythm on examination and an EKG documented atrial fibrillation at a rate of about 130. A previous electrocardiogram in June 2017 showed sinus rhythm with multiple PACs and PVCs. The patient is unaware of any rhythm abnormalities. She has no palpitations. She does have some shortness of breath and she states she has recent mild ankle edema. She has no chest pain, dizziness, syncope. She also has hypothyroidism on replacement therapy and followed by Dr. Walker In the ER she was started on IV Cardizem and IV heparin. Her chest x-ray shows cardiomegaly and mild vascular congestion. Her labs show slightly low potassium , normal BUN and creatinine, negative troponin. Allergies/Medications Allergies: Coded Allergies: NO KNOWN ALLERGIES (08/24/16) Home Med List: Acetaminophen (Acetaminophen Extra Strength) 500 MG TABLET 2 TAB PO BID Back pain Aspirin (Ecotrin*) 81 MG TABLET.DR 1 TAB PO DAILY HEART/BLOOD (Reported) Cholecalciferol (Vitamin D3) (Vitamin D) 2,000 UNIT CAPSULE 1 CAP PO DAILY Supplement Cyclobenzaprine HCl 5 MG TABLET 1 TAB PO DAILY PRN Back pain/spasm Levothyroxine Sodium (Synthroid) 100 MCG TABLET 1 TAB PO DAILY THYROID ( Reported) Lidocaine (Lidoderm) 5 % ADH..PATCH 1 PAT TOP DAILY Back pain may wear up to 12 hours Losartan Potassium 100 MG TABLET 1 TAB PO DAILY BP (Reported) Rosuvastatin Calcium (Crestor) 10 MG TABLET 1 TAB PO DAILY CHOLESTEROL ( Reported) Tramadol HCl (Ultram) 50 MG TABLET 0.5 TAB PO Q8P PRN Back pain Review of Systems Review of Systems: Her only complaint at this time is back pain and leg weakness Past History Travel History Traveled to [place] past 21 day No Medical History Neurological: NONE EENT: NONE Cardiovascular: hypertension, hyperlipidemia Respiratory: NONE Gastrointestinal: GERD, hiatal hernia Hepatic: NONE Renal: NONE Musculoskeletal: fracture Psychiatric: NONE Endocrine: HALF THYROID REMOVED Blood Disorders: NONE Cancer(s): 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 Ambulation: walker IADLs Unknown: shopping, housework, finances, food prep, telephone, transportation, medication admin. Exam & Diagnostic Data Vital Signs and I&O Vital Signs Date Time Temp Pulse Resp B/P B/P Pulse O2 O2 Flow FiO2 Mean Ox Delivery Rate 10/17 1703 91 157/70 10/17 1449 89 125/61 95 Room Air 10/17 1442 120 177/78 10/17 1346 98.1 109 17 161/95 97 Room Air Intake & Output 10/17 1600 10/17 0810/17 0000 10/16 1600 10/16 0810/16 0000 Intake Total Output Total Balance Patient 148 lb Weight Weight Reported by Patient Measurement Method Physical Exam: Elderly female lying in bed in mild distress from pain HEENT exam normal Chest a few basilar rales Heart irregular rhythm, no murmurs Abdomen benign Extremities trace edema of the ankles Labs/Qamar Results: Laboratory Tests 10/17 10/17 1818 1400 Chemistry Sodium (137 - 145 mmol/L) 143 Potassium (3.5 - 5.1 mmol/L) 3.3 L Chloride (98 - 107 mmol/L) 104 Carbon Dioxide (22 - 30 mmol/L) 24 Anion Gap (5 - 16) 16 BUN (7 - 17 mg/dL) 12 Creatinine (0.5 - 1.0 mg/dL) 0.9 Estimated GFR (>60 ml/min) 60 BUN/Creatinine Ratio (7 - 25 %) 13.3 Glucose (65 - 99 mg/dL) 156 H Calcium (8.4 - 10.2 mg/dL) 9.0 Total Bilirubin (0.2 - 1.3 mg/dL) 0.9 AST (14 - 36 U/L) 35 ALT (9 - 52 U/L) 47 Alkaline Phosphatase (<127 U/L) 96 Troponin I (< 0.11 ng/ml) 0.01 Total Protein (6.3 - 8.2 g/dL) 6.6 Albumin (3.5 - 5.0 g/dL) 4.0 Globulin (1.9 - 4.2 gm/dL) 2.6 Albumin/Globulin Ratio (1.1 - 2.2 %) 1.5 Coagulation PT (9.4 - 12.5 SEC) 11.8 INR (0.90 - 1.19) 1.08 APTT (25 - 37 SEC) 43 H Hematology CBC w Diff NO MAN DIFF REQ WBC (4.8 - 10.8 /CUMM) 7.4 RBC (4.20 - 5.40 /CUMM) 3.76 L Hgb (12.0 - 16.0 G/DL) 11.0 L Hct (37 - 47 %) 33.5 L MCV (81.0 - 99.0 FL) 89.1 MCH (27.0 - 31.0 PG) 29.2 MCHC (33.0 - 37.0 G/DL) 32.7 L RDW (11.5 - 14.5 %) 13.6 Plt Count (130 - 400 /CUMM) 325 MPV (7.4 - 10.4 FL) 7.8 Gran % (42.2 - 75.2 %) 68.1 Lymphocytes % (20.5 - 51.1 %) 24.3 Monocytes % (1.7 - 9.3 %) 4.7 Eosinophils % (0 - 5 %) 2.2 Basophils % (0.0 - 2.0 %) 0.7 Absolute Granulocytes (1.4 - 6.5 /CUMM) 5.0 Absolute Lymphocytes (1.2 - 3.4 /CUMM) 1.8 Absolute Monocytes (0.10 - 0.60 /CUMM) 0.3 Absolute Eosinophils (0.0 - 0.7 /CUMM) 0.2 Absolute Basophils (0.0 - 0.2 /CUMM) 0.1 Urines Urine Color Pending Urine Clarity Pending Urine pH Pending Ur Specific [place] Pending Urine Protein Pending Urine Ketones Pending Urine Nitrite Pending Urine Bilirubin Pending Urine Urobilinogen Pending Ur Leukocyte Esterase Pending Ur Microscopic Pending Urine Hemoglobin Pending Urine Glucose Pending Diagnostic Data EKG Results EKG shows atrial fibrillation rate 127, nonspecific T-wave changes CXR Results PATIENT: YESSICA YIN PRESENT AGE: 86 PATIENT ACCOUNT NO: [id number] : 32 LOCATION: [facility] ORDERING PHYSICIAN: Mike GRUBER SERVICE DATE: 10/17/170 EXAM TYPE: RAD - XRY-PORTABLE CHEST XRAY EXAMINATION: XR PORTABLE CHEST CLINICAL INFORMATION: Weakness. New onset flutter COMPARISON: Chest x-ray 07/31/2013 TECHNIQUE: Portable frontal view of the chest was obtained. 2:03 PM FINDINGS: Lung volume low. There is mild increased pulmonary vascularity with a small right pleural effusion. This is new since prior chest x-ray. No focal consolidation. IMPRESSION: Mild increased pulmonary vascularity with small right pleural effusion. DICTATED BY: Steven Schafer MD DATE/TIME DICTATED:10/17/171453 SPOT WORKER:JOSE JUAN DATE/TIME TRANSCRIBED:10/17/171453 CONFIDENTIAL, DO NOT COPY WITHOUT APPROPRIATE AUTHORIZATION. <Electronically signed in Other Vendor System> SIGNED BY: Steven Schafer MD 10/17/17 5635 Assessment/Plan Assessment/Plan This patient is an 86-year-old female who presents with back pain and leg weakness. She is incidentally found to be in atrial fibrillation at a moderate rate. There is suggestion of mild congestive heart failure on chest x-ray and she does have a few basilar rales and some edema. The duration of her atrial fibrillation is uncertain but she was in sinus rhythm in June 2017. I recommend rate control with IV Cardizem if available or beta-blockers if not. We could also use oral Cardizem if necessary. She is already been started on IV heparin. I would keep her on that for now and probably transition to oral anticoagulants soon. I would give her at least 1 dose of Lasix because of the suggestion of congestion. An echocardiogram will be very helpful in her assessment and management. Consult Acknowledgment - Thank you for your consult request.
--- NOTE | 2017-10-17 19:56 | Admission Certification ---
Admission Certification Certification Statement - As attending physician, I certify that at the time of - admission, based on clinical presentation, severity of - symptoms, need for further diagnostic testing and - therapeutic interventions, and risk of adverse outcomes - without in-hospital treatment, in my clinical assessment, - this patient requires an acute hospital stay for a minimum - of two nights or longer. I have also considered psychsocial - factors such as support system, advanced age, financial - issues, cognitive issues, and failed out-patient treatments, - past re-admission history, safety of patient, and lack of - compliance as applicable. Specific rationale supporting this admission is: New onset atrial fibrillation, acute on chronic back pain with paresthesias and lower extremity weakness.
--- NOTE | 2017-10-17 23:09 | History & Physical ---
Jono ERIC,Darleen 10/17/17 6046: General Information and HPI MD Statement: I have seen and personally examined YESSICA YIN and documented this H&P. The patient is a 86 year old F who presented with a patient stated chief complaint of [bilateral lower extremity numbness and weakness]. Source of Information: patient, family, old records Exam Limitations: no limitations History of Present Illness: Patient is an 86-year-old female with past medical history of hypothyroidism, osteoporosis, hypertension, osteoarthritis, rheumatoid arthritis, dysphagia, Tamiko's thyroiditis status, last admitted on June 21 for an acute L2 compression fracture presenting this admission with chief complaint of bilateral leg numbness and weakness. Patient's daughter was present at the time of interview and provided information along with what the patient reported. Patient reports that on day of admission she was sitting getting ready to eat and attempted to get up and found that both her legs felt numb and she was unable to stand up. Reports that her both her legs and feet felt cold, numb and weak. States that she had a burning sensation along her right leg and foot up to her thigh. Patient denies any chest pain, palpitations, numbness or tingling elsewhere, loss of bowel or bladder function, recent trauma since her last admission. Patient was admitted on June 21 to June 24 for an acute compression fracture of her L2 vertebrae. After which patient was at [facility] for approximately 10 days and was then transferred to the detention facility which she resides at. Patient reports that she continues to have back pain which is controlled with lidocaine patches and Tylenol. Patient states that she has had increasing difficulty with walking. She uses a walker or cane at home. Patient states one week prior to admission she states after walking around the store felt significantly fatigued and short of breath. Reports bilateral ankle swelling 3 days prior to admission after having pizza. Patient notes that she had diarrhea 3 days prior to admission after taking erythromycin. Patient states that she has dysphagia and was treated by Dr. Horton and was given erythromycin to help the dysphasia. States that she had stopped taking it for a while due to the side effect however recently started it again. Patient denies any change in her appetite. However family does state that she has decreased appetite. Patient reports that she sees Dr. Walker for her hypothyroidism and her levothyroxine was recently increased from 100 g daily. Patient does not recall what dose she was receiving. Patient receives her medications from [facility] which was closed overnight. The dose of her medication needs to be confirmed in the morning. Patient denies any history of heart disease. Patient in the ED was instantly found to be in atrial fibrillation. It is unclear how long she has been in A. fib however previous admission in June patient was in normal sinus rhythm. Allergies/Medications Allergies: Coded Allergies: NO KNOWN ALLERGIES (08/24/16) Home Med list Acetaminophen (Acetaminophen Extra Strength) 500 MG TABLET 2 TAB PO BID Back pain Aspirin (Ecotrin*) 81 MG TABLET.DR 1 TAB PO DAILY HEART/BLOOD (Reported) Cholecalciferol (Vitamin D3) (Vitamin D) 2,000 UNIT CAPSULE 1 CAP PO DAILY Supplement Cyclobenzaprine HCl 5 MG TABLET 1 TAB PO DAILY PRN Back pain/spasm Levothyroxine Sodium (Synthroid) 100 MCG TABLET 1 TAB PO DAILY THYROID ( Reported) Lidocaine (Lidoderm) 5 % ADH..PATCH 1 PAT TOP DAILY Back pain may wear up to 12 hours Losartan Potassium 100 MG TABLET 1 TAB PO DAILY BP (Reported) Rosuvastatin Calcium (Crestor) 10 MG TABLET 1 TAB PO DAILY CHOLESTEROL ( Reported) Tramadol HCl (Ultram) 50 MG TABLET 0.5 TAB PO Q8P PRN Back pain Past History Travel History Traveled to [place] past 21 day No Medical History Blood Transfusion Hx: No Neurological: NONE EENT: NONE Cardiovascular: hypertension, hyperlipidemia Respiratory: NONE Gastrointestinal: GERD, hiatal hernia Hepatic: NONE Renal: NONE Musculoskeletal: fracture Psychiatric: NONE Endocrine: HALF THYROID REMOVED Blood Disorders: NONE Cancer(s): NONE VENEER TAPER/Reproductive: NONE History of MRSA: No History of VRE: No History of CDIFF: No Isolation History: Standard Influenza Vaccine: 04/19/17 Surgical History Surgical History: appendectomy, hysterectomy, TONSILLECTOMY Past Family/Social History Psychosocial History Where do you live? Home Services at Home: Nursing Smoking Status: Never Smoked ETOH Use: denies use Illicit Drug Use: denies illicit drug use Functional Ability ADLs Independent: dressing, eating, toileting, bathing. Ambulation: walker IADLs Unknown: shopping, housework, finances, food prep, telephone, transportation, medication admin. Review of Systems Review of Systems Constitutional: Reports: see HPI. EENTM: Reports: no symptoms. Cardiovascular: Reports: no symptoms. Respiratory: Reports: no symptoms. GI: Reports: see HPI. Genitourinary: Reports: no symptoms. Musculoskeletal: Reports: see HPI. Skin: Reports: no symptoms. Neurological/Psychological: Reports: see HPI. Hematologic/Endocrine: Reports: no symptoms. Immunologic/Allergic: Reports: no symptoms. Exam & Diagnostic Data Last 24 Hrs of Vital Signs/I&O Vital Signs Date Time Temp Pulse Resp B/P B/P Pulse O2 O2 Flow FiO2 Mean Ox Delivery Rate 10/18 0653 78 126/68 10/18 0624 98.4 86 20 122/78 92 Room Air 10/18 0019 102 154/82 10/18 0018 97.5 89 20 160/78 94 Room Air 10/17 2249 Room Air 10/17 2143 97.8 103 18 152/66 96 Room Air 10/17 1849 98.3 99 17 149/72 96 Room Air 10/17 1703 91 157/70 10/17 1449 89 125/61 95 Room Air 10/17 1442 120 177/78 10/17 1346 98.1 109 17 161/95 97 Room Air Intake & Output 10/18 1600 10/18 0800 10/18 0000 Intake Total 390 Output Total 675 700 Balance -285 -700 Intake, IV 110 Intake, Oral 280 Output, Urine 675 700 Patient 146 lb Weight Weight Bed scale Measurement Method Physical Exam General Appearance Alert, Oriented X3, Cooperative, No Acute Distress HEENT Atraumatic, PERRLA, EOMI Cardiovascular Normal S1, Normal S2, No Murmurs, irregular rate Lungs bibasilar crackles Abdomen Normal Bowel Sounds, Soft, No Tenderness Neurological Normal Speech, Strength at 5/5 X4 Ext, Normal Tone, Cranial Nerves 3-12 NL Extremities No Clubbing, No Cyanosis, No Tenderness/Swelling, extremities cool to touch, bilateral lower extremity pitting edema - trace Vascular poorly palpable pulses in the left, nonpalpable pulses in the right foot , pulse in right foot not audible with doppler Last 24 Hrs of Labs/Qamar: Laboratory Tests 10/18/17 0050: APTT > 120 *H 10/18/17 0002: Troponin I 0.03 10/17/17 1818: Urine Color YEL, Urine Clarity CLEAR, Urine pH 6.0, Ur Specific Kistler 1.010, Urine Protein NEG, Urine Ketones NEG, Urine Nitrite NEG, Urine Bilirubin NEG, Urine Urobilinogen 0.2, Ur Leukocyte Esterase NEG, Ur Microscopic SEDIMENT EXAMINED, Urine RBC RARE, Urine WBC RARE, Ur Epithelial Cells FEW, Urine Bacteria PACKD H, Urine Mucus FEW, Urine Hemoglobin SMALL H, Urine Glucose NEG 10/17/17 1400: Anion Gap 16, Estimated GFR 60, BUN/Creatinine Ratio 13.3, Glucose 156 H, Calcium 9.0, Magnesium 1.5 L, Total Bilirubin 0.9, AST 35, ALT 47, Alkaline Phosphatase 96, Troponin I 0.01, Wio-D-Gonwjsamauh Pept 4660 H, Total Protein 6.6, Albumin 4.0, Globulin 2.6, Albumin/Globulin Ratio 1.5, TSH 5.870 H, PT 11.8, INR 1.08, APTT 43 H, CBC w Diff NO MAN DIFF REQ, RBC 3.76 L, MCV 89.1, MCH 29.2, MCHC 32.7 L, RDW 13.6, MPV 7.8, Gran % 68.1, Lymphocytes % 24.3, Monocytes % 4.7, Eosinophils % 2.2, Basophils % 0.7, Absolute Granulocytes 5.0, Absolute Lymphocytes 1.8, Absolute Monocytes 0.3, Absolute Eosinophils 0.2, Absolute Basophils 0.1 Diagnostic Data EKG Results EKG shows atrial fibrillation rate 127 nonspecific T-wave changes CXR Results PATIENT: YESSICA YIN PRESENT AGE: 86 PATIENT ACCOUNT NO: [id number] : 32 LOCATION: [facility] ORDERING PHYSICIAN: Mike GRUBER SERVICE DATE: 10/17/17 EXAM TYPE: RAD - XRY-PORTABLE CHEST XRAY EXAMINATION: XR PORTABLE CHEST CLINICAL INFORMATION: Weakness. New onset flutter COMPARISON: Chest x-ray 07/31/2013 TECHNIQUE: Portable frontal view of the chest was obtained. 2:03 PM FINDINGS: Lung volume low. There is mild increased pulmonary vascularity with a small right pleural effusion. This is new since prior chest x-ray. No focal consolidation. IMPRESSION: Mild increased pulmonary vascularity with small right pleural effusion. DICTATED BY: Steven Schafer MD DATE/TIME DICTATED:10/17/171453 COMMERCIAL LOAN ASSISTANT:JOSE JUAN DATE/TIME TRANSCRIBED:05/01/18 / 1454 CONFIDENTIAL, DO NOT COPY WITHOUT APPROPRIATE AUTHORIZATION. <Electronically signed in Other Vendor System> SIGNED BY: Steven Schafer MD 10/17/17 6416 Assessment/Plan Assessment: Patient is an 86-year-old female with past medical history of hypothyroidism, osteoporosis, hypertension, osteoarthritis, rheumatoid arthritis, dysphagia, Tamiko's thyroiditis status, last admitted on June 21 for an acute L2 compression fracture presenting this admission with chief complaint of bilateral leg numbness and weakness. Patient will be admitted to the telemetry for management of the followin. Bilateral lower extremity weakness and numbness likely 2/2 to acute to subacute superimposed lumbar compression fraction 2. New onset atrial fibrillation- found incidentally in the ED. Previously in NSR in June. 3. Acute decompensated heart failure - patient on exam had mild JVD, bibasilar crackles, imaging showed bilateral pleural effusion, trace bilateral edema, elevated proBNP 4. 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 Hypomagnesemia, Hypokalemia 6. History of dysphagia 7. History of hypothyroidism - recent dose adjustment 8. History of osteoporosis, HTN, osteoarthritis, rheumatoid arthritis Plan: - admit to telemetry with continuous monitoring - ortho consult (with Dr. Can- please call in AM) - PT/OT pending ortho evaluation - Serial EKG and troponin - Cardiology consultation with Dr. Hoskins- seen patient in ED. Placed on IV heparin drip - Patient received 1 x cardizem IV 10mg in the ED. Patient started on cardizem 30mg PO q8h - ECHO done - report pending - TSH, Free T4, Lipids - repleted electrolytes - Strict I/O, daily weights - Repeat CBC and BEP in AM - Confirm home medications - patient gets meds from [facility] (closed overnight) - Patient received IV lasix 20mg x 1. Does not appear overtly hypervolemic. Saturating well. Continue PO lasix in AM. - Patient's right leg - not palpable pulses, not audible on bedside doppler, CT Angiogram with runoff was done of lower extremities showing stenosed arteries. Vascular consult placed today. - Swallow evaluation for dysphagia (currently placed on previous diet of mechanical soft ground with thin liquids) - Aspiration, Fall precautions DVT PPx: IV heparin Code: Full code Diet: heart healthy, mechanical soft ground with thin liquids As Ranked By This Provider Problem List: 1. Vertebral compression fracture 2. New onset a-fib Core Measures/Misc (03/05) Acute Coronary Syndrome ACS Diagnosis: No Congestive Heart Failure Congestive Heart Failure Diagnosis Yes Cerebrovascular Accident CVA/TIA Diagnosis: No VTE (View Protocol) VTE Risk Factors Age>40 No Mechanical VTE Prophylaxis d/t Medical Contraindication No VTE Pharm Prophylaxis d/t NA PharmProphylax ordered Sepsis (View protocol) Sepsis Present: No Elver Chang 10/17/17 2313: Resident Review Statement Resident Statement: examined this patient, discussed with internet application developer, agreed with internet application developer, discussed with family, reviewed EMR data (avail), discussed with nursing , discussed with case mgmt, reviewed images, amended to note Other Findings: This 86-year-old female with medical history of hypertension, hypothyroidism, rheumatoid arthritis, osteoarthritis, chronic dysphagia, GERD, chronic kidney disease stage III, hyperlipidemia. Presented to the emergency department with a chief complain off the lower extremity and back pain and weakness. She reports that back in June of this year she had fractures in her low back and she was treated with conservative measures of physical therapy and pain management. She reports that she lives by herself. She's had some increased weakness to her legs and tingling in her legs. She was having difficulty with any ambulation today as she doesn't have her lidocaine patch since the past 3 days. Patient reports increased lower extremity edema, days ago after she ate a pizza and She was at [facility] 1 week ago, and felt very tired, exhausted and some dyspnea after walking a short distance. Also patient reports paresthesias (R>L) and feels burning pain all the way up to the hip with decreased sensation more in her right footand that it is cold to touch than the left one. In the emergency department patient found to have atrial fibrillation and was started on IV heparin after evaluated by test hole driller, she received a dose of IV Cardizem and her rates where under controlled, also she received a dose of IV Lasix giving the findings of the chest x-ray physical exam and lab. CT scan of the lumbar spine showed Acute versus subacute severe biconcave compression fracture superimposed upon a chronic injury at L2 with a further loss of vertebral body height centrally and mild bony retropulsion. On review on CT abd/pelvis (Jun 2017) addendum reads right hemodynamically significant renal artery stenosis and atherosclerotic calcification at origin of left renal artery with minimal stenosis. [id number] Score=6. Physical examination, lab and imaging as above. Problem list: -New onset Atrial fibrillation of unclear duration -Acute onset leg weakness, numbness and paresthesias in the right more than the left need to rule out acute arterial embolism due to the above. -Chronic L2 compression fracture with superimposed acute vs subacute event. -Acute onset congestive heart failure. -Hypokalemia and hypomagnesemia. Plan: - Admit to Telemetry - Vitals every shift, Neurochecks Q2 and Fall precautions - Strict I/O's, daily weight - Start cardizem PO 30 mg Q8hr - Continue IV heparin drip - Serial EKG and troponin R/O ACS. - Obtain echocardiogram and Cardiology consult. - Obtain TSH, free T4, lipid panel and hemoglobin A1c - Start PO lasix 20 mg daily can be switch to IV or increase the by mouth dose if needed in a.m. - Replete electrolytes - Obtain CT angiogram of lower extremity including abdominal aorta. - Obtain Vascular consult in AM - Ortho consult (Dr. Can) to comment on CT lumbar spine findings and options for management. - Pain management with lidocaine patch, tylenol. - Physical therapy consultation in a.m. - Check swallow eval, but the patient on mechanical soft and thin - Please confirm patient home medication - DVT prophylaxis on IV heparin. - Full code. Gamaliel ERIC, [facility] 10/17/17 2327: Attending Review Statement Attending Statement Attending MD Statement: examined this patient, discuss w/resident/PA/[employer], agreed w/resident/PA/[employer], discussed with family, reviewed images, amended to note Attending Assessment/Plan: 86 yo F with h/o HTN, hypothyroidism, RA, OA, dysphagia of unclear etiology, GERD, CKD stage 3, who was last admitted for L2 compression fracture (Jun 2017) and completed rehab at [facility] thereafter. She has since been living at [facility] and is able to get around with a rolling walker or cane. Today, around 2 pm, she was sitting on her chair having coffee, when she tried to get up she could not feel her legs. Her feet were cold, numb, weak and she could not lift herself up. So she pressed the life alert. She c/o paresthesias (R>L) and feels burning pain all the way up to the hip. She has chronic low back pain and was using lidocaine patches which she ran out of 3 days ago. She denies back pain radiating down the leg. She denies recurrent falls. She currently feels better, is able to move her legs although still numb at base of the feet. Of late, she has been feeling very weak with minimal exertion. She was at [facility] 1 week ago, and felt very tired, exhausted and some dyspnea after walking a short distance. She denies chest pain, palpitations, exertional dyspnea or lightheadedness. She also has recently developed bilateral ankle edema. She has chronic dysphagia been evaluated by multiple GI physicians (Dr. Horton). She has tried erythromycin in the past but developed diarrhea, and has tried prednisone but stopped due to osteoporosis. She denies h/o CAD, or tachy/bradyarrhythmias in the past. When placed on the monitor in the ER, she was found to be in Afib (unclear of the duration) but her EKG from Jun 2017 was sinus rhythm. Patient has a h/o hypothyroidism and her synthroid dose was recently increased by Dr. Walker (please confirm). Vitals: afebrile, HR 100-120's, BP 152/66, sats 96% RA. Exam: AAO, in mild distress due to pain, mucosa moist, JVD noted, Chest: bibasilar crackles+, Heart S1S2 irregularly irregular, systolic murmur+, LE: b/l trace edema+. Peripheral pulses not palpable more so on the right, both feet are cold (R>L) and pale appearing. Motor strength is good, sensation is reduced on the right side below the knee, and almost absent on the feet. Labs: H/H 11/33.5, Plt 325, INR 1.08, K 3.3, glucose 156, creat 0.9, Mag 1.5, trop 0.01, proBNP 4660. UA clear except for packed bacteria. CXR: mild increased pulmonary vascularity with small right pleural effusion. CT lumbar spine: acute vs subacute severe biconcave compression fracture superimposed on chronic injury at L2 with further loss of vertebral body height centrally and mild bony retropulsion. No central canal stenosis. Bilateral pleural effusions. EKG: atrial fibrillation with PVC's, Qtc 419, nonspecific T-wave changes. Rectal exam done by ER PA: normal rectal tone, guaiac negative Assessment and plan: 1. Acute onset leg weakness, numbness and paresthesias pain, pale, pulseless, paresthesia and cold feet but with preserved motor function symptoms seem to be improving, cannot rule out acute arterial embolism. 2. Chronic L2 compression fracture with superimposed acute vs subacute event 3. New onset Atrial fibrillation of unclear duration 4. Acute onset congestive heart failure (systolic vs diastolic) 5. Severe osteoarthritis and rheumatoid arthritis 6. H/o dysphagia 7. Hypokalemia and hypomagnesemia - Admit to Telemetry - Neurochecks and vascular checks Q2 - Fall precautions - Cardizem 10 mg IV given in ER with adequate rate control, will initiate cardizem PO 30 mg Q8 - IV heparin per PTT protocol - Serial EKG and troponin - Obtain Echo and Cardio consult (Dr. Hoskins) - Check TSH, free T4 - IV lasix 20 mg x 1, followed by PO lasix 20 mg daily from AM - Replete electrolytes - Strict I/O's - Will check for arterial pulses with bedside doppler, and will do a CT angiogram runoff of lower extremity to assess for arterial embolism - Continue anticoagulation per protocol - On review on CT abd/pelvis (Jun 2017) addendum reads right hemodynamically significant renal artery stenosis and atherosclerotic calcification at origin of left renal artery with minimal stenosis. - Obtain Vascular consult - Ortho consult (Dr. Can) to comment on CT lumbar spine findings and options for management. Patient does not wish to see Dr. Manzo who had evaluated her in Jun 2017. - Pain management with lidocaine patch, tylenol and tramadol. No opiates. - PT therapy - Check swallow eval, maintain on soft diet (no spinach or tomato) - Confirm home meds, resume aspirin, crestor, synthroid. DVT ppx IV heparin. Full code.
[2017-10-18 00:18] VITALS: BP 160/78
[2017-10-18 01:55] LABS: PTT > 120 SEC (25-37)
--- NOTE | 2017-10-18 02:40 | CT SCAN REPORT ---
EXAMINATION: CT ANGIOGRAPHY WITH RUNOFF CLINICAL INFORMATION: Right occlusion, no pulse right femoral artery COMPARISON: Report from 06/20/2017 TECHNIQUE: 95 mL Optiray 350 intravenous contrast was utilized. Multidetector helical imaging was performed through the abdomen and pelvis as well as lower extremities per CTA protocol. Coronal and sagittal reformatted images were created. DLP: 987.69\H\ \N\mGy-cm FINDINGS: VASCULATURE: There is atherosclerotic plaque and calcification along the abdominal and thoracic aorta, without evidence of dissection or significant dilation. The celiac artery is patent. 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 The superior mesenteric artery is patent with mild calcification at the origin. There is scattered calcification along the course of the superior mesenteric artery. The bilateral renal artery origins are patent, with moderate calcification at the right renal artery origin. The inferior mesenteric artery is patent. Right lower extremity: There is moderate calcification along the right common iliac artery. There is scattered calcification along the right internal iliac artery. The right external iliac artery is widely patent. The right common femoral artery is patent with segments of mild stenosis from mixed calcified and noncalcified plaque. The proximal to mid right superficial femoral artery is patent with mild scattered segments of mild narrowing. There is abrupt loss of opacification for a segment of the distal right superficial femoral artery estimated to measure approximately 6 cm in length. There is reconstitution of flow presumably secondary to collateral vasculature. The right popliteal artery lumen demonstrates irregular mild to moderate narrowing. The right anterior tibial, posterior talar, and peroneal arteries appear patent. Left lower extremity: There is moderate calcification along the left common iliac artery. There is scattered calcification along the left internal iliac artery. The left external iliac artery is widely patent. The left common femoral artery is patent with mild to moderate atherosclerotic disease. The left superficial artery is patent though demonstrates an irregular contour within segments of atherosclerotic disease resulting in mild to moderate stenosis. The left popliteal artery demonstrates foci of mild narrowing, followed by a short segment of nonopacification below the level of the knee measuring approximately 1 cm, favoring focal thrombosis. There is reconstitution of flow in the distalmost popliteal artery. The left anterior tibial, posterior talar, and peroneal arteries appear patent. NONVASCULAR STRUCTURES: There are partially visualized moderate bilateral pleural effusions with partial atelectasis of the lower lobes. There is a region in the liver near the gallbladder fossa demonstrating relative hyperattenuation compared to the rest of the parenchyma; this could reflect focal fatty sparing in an otherwise fatty liver. Cholelithiasis is noted. The spleen and adrenal glands are within normal limits. There is partial fatty atrophy of the pancreas. Bilateral nephrograms are symmetric. The right kidney appears somewhat atrophic. No hydronephrosis. No obstructing renal or ureteral calculi are present. The urinary bladder is unremarkable. Patient appears status post hysterectomy. A small hiatal hernia is present. Colonic diverticulosis is noted. The small and large bowel are otherwise unremarkable without evidence of obstruction or pericolonic inflammatory change. No free fluid or free air is present. No retroperitoneal or pelvic lymphadenopathy is seen. There is moderate compression deformity of the L2 vertebral body. Regions of subcutaneous edema are noted in the bilateral lower extremities, with no discrete collection identified. IMPRESSION: 1. Approximately 6 cm segment of the distal right superficial femoral artery demonstrates occlusion, with reconstitution of flow. Distally, there is three vessel runoff of the right lower extremity. 2. Short segment of occlusion of the distal left popliteal artery, with reconstitution of flow. Distally, there is three vessel runoff of the left lower extremity. 3. Overall moderate atherosclerotic disease of the aorta and branch vessels as described above. 4. Partially visualized moderate bilateral pleural effusions with adjacent atelectasis. 5. Cholelithiasis. 6. Small hiatal hernia.
[2017-10-18 05:17] LABS: ABSOLUTE BASOPHIL COUNT 0 /CUMM (0.0-0.2); ABSOLUTE EOSINOPHIL COUNT 0 /CUMM (0.0-0.7); ABSOLUTE GRANULOCYTE CT 6.1 /CUMM (1.4-6.5); ABSOLUTE LYMPH COUNT 1.4 /CUMM (1.2-3.4); ABSOLUTE MONOCYTE COUNT 0.5 /CUMM (0.10-0.60); BASOPHIL % 0.5 % (0.0-2.0); EOSINOPHIL % 0.5 % (0-5); HEMATOCRIT 33.2 % (37-47); MEAN CORPUSCULAR HGB 29.4 PG (27.0-31.0); MEAN CORPUSCULAR VOLUME 89.2 FL (81.0-99.0); MEAN PLATELET VOLUME 7.8 FL (7.4-10.4); PLATELET COUNT 298 /CUMM (130-400); RED BLOOD CELL CT 3.72 /CUMM (4.20-5.40)
[2017-10-18 06:24] VITALS: BP 122/78
--- NOTE | 2017-10-18 08:04 | PN- Housestaff ---
Boubacar ERIC,Joyce 10/18/17 0804: Subjective Follow-up For: 1. Bilateral lower extremity weakness and numbness likely 2/2 to acute to subacute superimposed lumbar compression fraction 2. New onset atrial fibrillation- found incidentally in the ED. Previously in NSR in June. 3. Acute decompensated heart failure - patient on exam had mild JVD, bibasilar crackles, imaging showed bilateral pleural effusion, trace bilateral edema, elevated proBNP 4. 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 Hypomagnesemia, Hypokalemia 6. History of dysphagia 7. History of hypothyroidism - recent dose adjustment 8. History of osteoporosis, HTN, osteoarthritis, rheumatoid arthritis Complaints: pain scale (0-10) Tele-Events Since Last Visit: afib/flutter 76-106 with pvcs Subjective: Patient seen and examined. She has a slight cough today. Notes that she is feeling "so-so" overall. She is not on O2. She denies any shortness of breath. No chest pain or dizziness. Neuro exam of extremities was negative, lower extremities full sensation. Review of Systems Constitutional: Reports: no symptoms. EENTM: Reports: no symptoms. Cardiovascular: Reports: no symptoms. Respiratory: Reports: cough. Gastrointestinal: Reports: no symptoms. Genitourinary: Reports: no symptoms. Musculoskeletal: Reports: back pain, joint pain. Neurological/Psychological: Reports: no symptoms. Hematologic/Endocrine: Reports: no symptoms. Objective Last 24 Hrs of Vital Signs/I&O Vital Signs Date Time Temp Pulse Resp B/P B/P Pulse O2 O2 Flow FiO2 Mean Ox Delivery Rate 10/18 1100 Room Air 10/18 0840 124/70 10/18 0653 78 126/68 / 0624 98.4 86 20 122/78 92 Room Air 10/18 0019 102 154/82 10/18 0018 97.5 89 20 160/78 94 Room Air 10/17 2249 Room Air 10/17 2143 97.8 103 18 152/66 96 Room Air 10/17 1849 98.3 99 17 149/72 96 Room Air 10/17 1703 91 157/70 10/17 1449 89 125/61 95 Room Air 10/17 1442 120 177/78 Intake & Output 10/18 1600 10/18 0800 10/18 0000 Intake Total 390 Output Total 675 700 Balance -285 -700 Intake, IV 110 Intake, Oral 280 Output, Urine 675 700 Patient 146 lb Weight Weight Bed scale Measurement Method Physical Exam General Appearance: Alert, Oriented X3, Cooperative, No Acute Distress Skin: No Rashes, No Breakdown, No Significant Lesion Skin Temp/Moisture Exam: Warm/Dry Sepsis Skin Exam (color): Normal for Ethnicity HEENT: Atraumatic, PERRLA, EOMI, Mucous Membr. moist/pink Cardiovascular: Regular Rate, Normal S1, Normal S2, No Murmurs Lungs: Normal Air Movement, faint crackles in lower lung mcgee bibasilar Abdomen: Normal Bowel Sounds, Soft, No Tenderness Neurological: Normal Speech, Strength at 5/5 X4 Ext, Normal Tone, Sensation Intact Extremities: No Clubbing, No Cyanosis, No Edema, Normal Pulses, No Tenderness/ Swelling Vascular: Normal Pulses Sepsis Peripheral Pulse Location: very faint on right side Sepsis Peripheral Pulse Exam: Normal Current Medications: Current Medications Sig/Arslan Start time Last Medication Dose Route Stop Time Status Admin Acetaminophen 650 MG .STK-MED ONE 10/18 0010 DC PO 10/18 0011 Acetaminophen 650 MG Q6P PRN 10/17 2300 AC 10/18 PO 0019 Acetaminophen 0 .STK-MED ONE 10/17 1420 DC IV Acetaminophen 1,000 MG ONCE ONE 10/17 1415 DC 10/17 N/A 1 UNIT IV 10/17 1429 1423 Apixaban 2.5 MG BID 10/18 1258 AC PO Aspirin Buffered 81 MG DAILY 10/18 0900 AC 10/18 PO 0839 Atorvastatin Calcium 40 MG 1700 10/18 1700 AC PO Diazepam 3 MG ONCE ONE 10/17 1515 DC IV 10/17 1516 Diltiazem HCl 30 MG Q8 10/17 2315 AC 10/18 PO 0653 Diltiazem HCl 10 MG ONCE ONE 10/17 1445 DC 10/17 IV PUSH 10/17 1446 1442 Furosemide 20 MG DAILY 10/18 0900 AC 10/18 PO 0839 Furosemide 0 .STK-MED ONE 10/17 1947 DC IV Furosemide 20 MG ONCE ONE 10/17 1900 DC 10/17 IV 10/17 190 1943 Heparin Sodium 0 .STK-MED ONE 10/17 1830 DC (Porcine) .ROUTE Heparin Sodium 25,000 UNIT Q24H 051814 DC 10/17 (Porcine) IV 1843 Sodium Chloride 500 ML Heparin Sodium 4,000 UNIT ONCE ONE 10/17 1814 DC 10/17 (Porcine) IV 10/18 1815 184 Levothyroxine Sodium 0.1 MG DAILY AC 10/18 0700 AC 10/18 PO 0653 Lidocaine 1 PAT Q24H 10/17 2300 AC 10/18 EXT 0018 Lorazepam 0.5 MG ONCE ONE 10/17 1600 DC 10/17 IV 10/17 1601 1549 Lorazepam 0 .STK-MED ONE 10/17 1550 DC .ROUTE Losartan Potassium 100 MG DAILY 10/18 0900 AC 10/18 PO 0840 Magnesium Oxide 400 MG ONE ONE 10/18 0830 DC 10/18 PO 10/18 0931 1029 Magnesium Oxide 400 MG .STK-MED ONE 10/18 0014 DC PO 10/18 0015 Magnesium Oxide 400 MG .STK-MED ONE 10/18 0014 DC PO 10/18 0015 Magnesium Oxide 400 MG ONE ONE 10/17 2315 DC 10/18 PO 10/17 2316 0019 Potassium Chloride 40 MEQ ONCE ONE 10/18 929 DC 10/18 PO 10/18 0931 1029 Potassium Chloride 40 MEQ .STK-MED ONE 10/18 0013 DC PO 10/18 0014 Potassium Chloride 40 MEQ .STK-MED ONE 10/18 0013 DC PO 10/18 0014 Potassium Chloride 40 MEQ ONCE ONE 10/17 231 DC 10/18 PO 10/17 2316 0018 Last 24 Hrs of Lab/Qamar Results Last 24 Hrs of Labs/Mics: Laboratory Tests 10/18/17 0945: APTT > 120 *H 10/18/17 0450: Troponin I 0.04 10/18/17 0450: Anion Gap 13, Estimated GFR 60, BUN/Creatinine Ratio 14.4, Hemoglobin A1c 5.7, Triglycerides 51, Cholesterol 123, LDL Cholesterol, Calc 47 L, HDL Cholesterol 66 H, Cholesterol/HDL Ratio 2, Thyroxine (T4) 11.0 H, Total T3 0.86 L, CBC w Diff NO MAN DIFF REQ, RBC 3.72 L, MCV 89.2, MCH 29.4, MCHC 33.0, RDW 13.0, MPV 7.8, Gran % 76.0 H, Lymphocytes % 16.9 L, Monocytes % 6.1, Eosinophils % 0.5, Basophils % 0.5, Absolute Granulocytes 6.1, Absolute Lymphocytes 1.4, Absolute Monocytes 0.5, Absolute Eosinophils 0, Absolute Basophils 0 10/18/17 0050: APTT > 120 *H 10/18/17 0002: Troponin I 0.03 10/17/17 1818: Urine Color YEL, Urine Clarity CLEAR, Urine pH 6.0, Ur Specific [place] 1.010, Urine Protein NEG, Urine Ketones NEG, Urine Nitrite NEG, Urine Bilirubin NEG, Urine Urobilinogen 0.2, Ur Leukocyte Esterase NEG, Ur Microscopic SEDIMENT EXAMINED, Urine RBC RARE, Urine WBC RARE, Ur Epithelial Cells FEW, Urine Bacteria PACKD H, Urine Mucus FEW, Urine Hemoglobin SMALL H, Urine Glucose NEG 10/17/17 1400: Anion Gap 16, Estimated GFR 60, BUN/Creatinine Ratio 13.3, Glucose 156 H, Calcium 9.0, Magnesium 1.5 L, Total Bilirubin 0.9, AST 35, ALT 47, Alkaline Phosphatase 96, Troponin I 0.01, Bxk-R-[place] Pept 4660 H, Total Protein 6.6, Albumin 4.0, Globulin 2.6, Albumin/Globulin Ratio 1.5, TSH 5.870 H, PT 11.8, INR 1.08, APTT 43 H, CBC w Diff NO MAN DIFF REQ, RBC 3.76 L, MCV 89.1, MCH 29.2, MCHC 32.7 L, RDW 13.6, MPV 7.8, Gran % 68.1, Lymphocytes % 24.3, Monocytes % 4.7, Eosinophils % 2.2, Basophils % 0.7, Absolute Granulocytes 5.0, Absolute Lymphocytes 1.8, Absolute Monocytes 0.3, Absolute Eosinophils 0.2, Absolute Basophils 0.1 Assessment/Plan Assessment: Patient is an 86-year-old female with past medical history of hypothyroidism, osteoporosis, hypertension, osteoarthritis, rheumatoid arthritis, dysphagia, Tamiko's thyroiditis status, last admitted on June 21 for an acute L2 compression fracture presenting this admission with chief complaint of bilateral leg numbness and weakness. Patient will be admitted to the telemetry for management of the followin. Bilateral lower extremity weakness and numbness likely 2/2 to acute to subacute superimposed lumbar compression fraction or peripheral vascular disease as superficial femoral artery stenosis in the right leg and distal left popliteal artery stenosis were found. Of note patient also notes that she has a previously broken ankle healed on its own and a displaced shoulder. Patient does not want any kind of orthopedic intervention. 2. New onset atrial fibrillation- found incidentally in the ED. Previously in NSR in June. Patient has a family history of atrial fibrillation, her daughters all have A. fib reportedly. Chads*score is 6. Patient was started on IV heparin drip. 3. Acute on chronic diastolic heart failure- patient on exam had mild JVD, bibasilar crackles, imaging showed bilateral pleural effusion, trace bilateral edema, elevated proBNP 4. Hypomagnesemia, Hypokalemia 5. History of dysphagia - patient had esophageal stricture/stenosis which was opened mechanically in the past, received erythromycin as well. 6. History of hypothyroidism - recent dose adjustment 7. History of osteoporosis, HTN, osteoarthritis, rheumatoid arthritis 8. Hypertension on admission -patient is on losartan here. She does have a right hemodynamically significant renal artery stenosis. Plan: - admit to telemetry with continuous monitoring - Serial EKG and troponin were negative for ACS -We have switched patient's heparin drip today to Eliquis 2.5 mg twice a day. As per cardiology we can increase the patient's Cardizem if her rate increases. - Cardiology consultation with Dr. Hoskins- seen patient in ED. Placed on IV heparin drip - Patient received 1 x cardizem IV 10mg in the ED. Patient started on cardizem 30mg PO q8h - ECHO done - showing moderate left ventricular hypertrophy and 60% ejection fraction, no aortic stenosis. - TSH, Free T4, both elevated, evidence of hypothyroidism patient on Synthroid. Lipid panel is normal we will continue patient's Lipitor 40 mg. Hemoglobin A1c is 5.7. - repleted electrolytes - Strict I/O, daily weights - Repeat CBC and BEP in AM - Patient received IV lasix 20mg x 1. Does not appear overtly hypervolemic. Saturating well. Continued PO lasix today. - Patient's right leg - not palpable pulses, not audible on bedside doppler, CT Angiogram with runoff was done of lower extremities showing stenosed arteries but with collaterals. Vascular consult placed today. - Swallow evaluation for dysphagia (currently placed on previous diet of mechanical soft ground with thin liquids) - Aspiration, Fall precautions -Physical therapy will see the patient. She lives alone and ambulates with a cane normally. -Pain control with Lidoderm patch and pathway. DVT PPx: IV heparin Code: Full code Diet: heart healthy, mechanical soft ground with thin liquids Problem List: 1. Lumbar radiculopathy, acute 2. New onset a-fib 3. Dehydration 4. Vertebral compression fracture 5. Peripheral vascular disease 6. CHF (congestive heart failure) Pain Ratin Pain Location: back Pain Goal: Pain 4 or less Pain Plan: pathway Tomorrow's Labs & Rationales: cbc bep Ramone Allen 10/18/17 1237: Attending MD Review Statement Attending Statement Attending MD Statement: examined this patient, discuss w/resident/PA/VEGETABLE VENDOR, agreed w/resident/PA/VEGETABLE VENDOR, discussed with family, reviewed EMR data (avail), discussed with nursing, discussed with case mgmt, reviewed images, amended to note Attending Assessment/Plan: Patient seen/examined bedside. Patient has good motor strength, sensatiosn intact both lower extremities. CTA run off aorta noted with complete occlusion with collaterals established. Patient is found to have new onset afib and rate controlled now with cardizem and on anticoagulation. Patient has chronic compression fracture with possible subacute event and she does not want to pursue clearly any surgical options and refuses them. She does want pain control. Lidocaine patch topical. Cardiology consulted and follow recommendations. Inform family, gi/dvt prophyalxis
--- NOTE | 2017-10-18 11:15 | ECHOCARDIOGRAM REPORT ---
YESSICA YIN Age: 86 : 1930 Gender: F Exam Date: 10/17/2017 19:48 Exam Location: ER Ht (in): 64 Wt (lb): 148 BSA: 1.75 BP: 149 / 72 Ordering Physician: Thong Hoskins MD Referring Physician: Thong Hoskins MD Technologist: Dee Dee Ayala RDCS Room Number: [id number] Indications: AFIB/FLUTTER Rhythm: Sinus Technical Quality: Fair FINDINGS Left Ventricle Normal size left ventricle. Moderate concentric left ventricular hypertrophy. Normal left ventricular ejection fraction visually estimated at 60 %. No obvious regional wall motion abnormalities. Right Ventricle The right ventricle is normal in size and function. Right Atrium The right atrium is normal in size. Left Atrium Mild left atrial dilatation. Mitral Valve Mild to moderate thickening/calcification of the mitral valve leaflets. Mild to moderate mitral annular calcification. Mild mitral regurgitation. Aortic Valve Focal thickening of the aortic valve cusps. No aortic stenosis. No aortic regurgitation. Tricuspid Valve Tricuspid valve is normal in structure and function. Mild tricuspid regurgitation. Right ventricular systolic pressure estimated to be within the normal range at 30-35 mmHg. Pulmonic Valve Structurally normal pulmonic valve. There is no pulmonic regurgitation. Pericardium Normal pericardium without effusion. No pleural effusion. Great Vessels Normal aortic root dimension. The aortic arch and great vessels are not well seen. CONCLUSIONS Moderate concentric left ventricular hypertrophy. Normal left ventricular ejection fraction visually estimated at 60 Mild left atrial dilatation. Mild to moderate thickening/calcification of the mitral valve leaflets. Mild to moderate mitral annular calcification. Mild mitral regurgitation. Focal thickening of the aortic valve cusps. No aortic stenosis. Right ventricular systolic pressure estimated to be within the normal range at 30-35 mmHg. The aortic arch and great vessels are not well seen. Thong Hoskins M.D. (Electronically Signed) Final Date: 18 Oct 2017 11:15 MEASUREMENTS (Male / Female) Normal Values 2D ECHO LV Diastolic Diameter PLAX 3.2 cm 4.2 - 5.9 / 3.9 - 5.3 cm LV Systolic Diameter PLAX 2.0 cm 2.1 - 4.0 cm LV Fractional Shortening PLAX 37.5 % 25 - 46 % LV Ejection Fraction 2D Teich 68.9 % IVS Diastolic Thickness 1.4 cm LVPW Diastolic Thickness 1.4 cm LV Relative Wall Thickness 0.9 RV Internal Dim ED PLAX 2.6 cm 1.9 - 3.8 cm LVOT Diameter 1.9 cm Aortic Root Diameter 2.9 cm LA Systolic Diameter LX 4.1 cm 3.0 - 4.0 / 2.7 - 3.8 cm LA Volume 69.0 cm 18 - 58 / 22 - 52 cm Ascending Aorta Diameter 3.1 cm DOPPLER AV Peak Velocity 124.0 cm/s AV Peak Gradient 6.2 mmHg AV Mean Velocity 95.0 cm/s AV Mean Gradient 4.0 mmHg AV Velocity Time Integral 28.0 cm LVOT Peak Velocity 96.1 cm/s LVOT Peak Gradient 3.7 mmHg LVOT Mean Velocity 63.8 cm/s LVOT Mean Gradient 2.0 mmHg LVOT Velocity Time Integral 17.8 cm LVOT Stroke Volume 50.5 cm AV Area Cont Eq vti 1.8 cm AV Area Cont Eq pk 2.2 cm MV Peak Velocity 143.0 cm/s MV Peak Gradient 8.2 mmHg MV Mean Velocity 92.3 cm/s MV Mean Gradient 4.0 mmHg Mitral E Point Velocity 130.0 cm/s MV PHT Velocity 148.0 cm/s MV Deceleration [place] 596.0 cm/s MV Pressure Half Time 74.5 ms MV Area PHT 3.0 cm MV Deceleration Time 177.0 ms TR Peak Velocity 255.0 cm/s TR Peak Gradient 26.0 mmHg Right Atrial Pressure 5.0 mmHg Pulmonary Artery Systolic Pressu 31.0 mmHg Right Ventricular Systolic Press 31.0 mmHg PV Peak Velocity 77.7 cm/s PV Peak Gradient 2.4 mmHg PV Mean Velocity 47.0 cm/s PV Mean Gradient 1.0 mmHg PV Velocity Time Integral 14.1 cm LV E' Lateral Velocity 6.9 cm/s Mitral E to LV E' Lateral Ratio 18.8 LV E' Septal Velocity 7.3 cm/s Mitral E to LV E' Septal Ratio 17.8
[2017-10-18 11:25] LABS: PTT > 120 SEC (25-37)
--- NOTE | 2017-10-18 12:14 | PN- Cardiology ---
Subjective Subjective: The patient has no specific complaints today. She is not having significant pain. She remains in atrial fibrillation with a fairly controlled rate. She is now on Lasix orally, potassium, diltiazem orally, IV heparin. She had a CTA showing significant vascular disease of both lower extremities. Troponins are negative 3. ProBNP was modestly elevated. Thyroid function tests are nonspecifically abnormal. Her echocardiogram showed adequate left ventricular systolic function, dilated left atrium, upper normal pulmonary artery pressure. Objective Vital Signs and I&Os Vital Signs Date Time Temp Pulse Resp B/P B/P Pulse O2 O2 Flow FiO2 Mean Ox Delivery Rate 10/18 1100 Room Air 10/18 0840 124/70 10/18 0653 78 126/68 / 0624 98.4 86 20 122/78 92 Room Air 10/18 0019 102 154/82 10/18 0018 97.5 89 20 160/78 94 Room Air 10/17 2249 Room Air 10/17 2143 97.8 103 18 152/66 96 Room Air 10/17 1849 98.3 99 17 149/72 96 Room Air 10/17 1703 91 157/70 10/17 1449 89 125/61 95 Room Air 10/17 1442 120 177/78 05 1346 98.1 109 17 161/95 97 Room Air Intake & Output 10/18 1600 10/18 0800 10/18 0000 10/17 1600 10/17 0800 10/17 0000 Intake Total 390 Output Total 675 700 Balance -285 -700 Intake, IV 110 Intake, Oral 280 Output, Urine 675 700 Patient 146 lb 148 lb Weight Weight Bed scale Reported by Patient Measurement Method Physical Exam: She is in no distress HEENT exam normal Chest clear Heart irregular rhythm, no murmurs Extremities decreased pulses, no edema Current Medications: Current Medications Sig/Arslan Start time Last Medication Dose Route Stop Time Status Admin Acetaminophen 650 MG .STK-MED ONE 10/18 0010 DC PO 10/18 0011 Acetaminophen 650 MG Q6P PRN 10/17 2300 AC 10/18 PO 0019 Acetaminophen 0 .STK-MED ONE 10/17 1420 DC IV Acetaminophen 1,000 MG ONCE ONE 10/17 1415 DC 10/17 N/A 1 UNIT IV 10/17 142 1423 Aspirin Buffered 81 MG DAILY 10/18 0900 AC 10/18 PO 0839 Atorvastatin Calcium 40 MG 1700 10/18 1700 AC PO Diazepam 3 MG ONCE ONE 10/17 1515 DC IV 10/17 1516 Diltiazem HCl 30 MG Q8 10/17 2315 AC 05 PO 0653 Diltiazem HCl 10 MG ONCE ONE 10/17 1445 DC 05 IV PUSH 10/17 1446 1442 Furosemide 20 MG DAILY 10/18 0900 AC 05 PO 0839 Furosemide 0 .STK-MED ONE 10/17 1947 DC IV Furosemide 20 MG ONCE ONE 10/17 1900 DC 10/17 IV 10/17 190 1943 Heparin Sodium 0 .STK-MED ONE 10/17 1830 DC (Porcine) .ROUTE Heparin Sodium 25,000 UNIT Q24H 10/17 181 AC 10/17 (Porcine) IV 1843 Sodium Chloride 500 ML Heparin Sodium 4,000 UNIT ONCE ONE 10/17 181 DC 10/17 (Porcine) IV 10/17 181 1847 Levothyroxine Sodium 0.1 MG DAILY AC 10/18 0700 AC 10/18 PO 0653 Lidocaine 1 PAT Q24H 10/17 2300 AC 10/18 EXT 0018 Lorazepam 0.5 MG ONCE ONE 10/17 1600 DC 10/17 IV 10/17 1601 1549 Lorazepam 0 .STK-MED ONE 10/17 1550 DC .ROUTE Losartan Potassium 100 MG DAILY 10/18 0900 AC 10/18 PO 0840 Magnesium Oxide 400 MG ONE ONE 10/18 0930 DC 10/18 PO 10/18 0931 1029 Magnesium Oxide 400 MG .STK-MED ONE 10/18 0014 DC PO 10/18 0015 Magnesium Oxide 400 MG .STK-MED ONE 10/18 0014 DC PO 10/18 0015 Magnesium Oxide 400 MG ONE ONE 10/17 2315 DC / PO 10/17 2316 0019 Potassium Chloride 40 MEQ ONCE ONE 10/18 0930 DC 10/18 PO 10/18 0931 1029 Potassium Chloride 40 MEQ .STK-MED ONE 10/18 0013 DC PO 10/18 0014 Potassium Chloride 40 MEQ .STK-MED ONE 10/18 0013 DC PO 10/18 0014 Potassium Chloride 40 MEQ ONCE ONE 10/17 2315 DC 10/18 PO 10/17 2316 0018 Results Last 48 Hrs of Labs/Mics: Laboratory Tests 10/18/17 0945: APTT > 120 *H 10/18/17 0450: Troponin I 0.04 10/18/17 0450: Anion Gap 13, Estimated GFR 60, BUN/Creatinine Ratio 14.4, Hemoglobin A1c 5.7, Triglycerides 51, Cholesterol 123, LDL Cholesterol, Calc 47 L, HDL Cholesterol 66 H, Cholesterol/HDL Ratio 2, Thyroxine (T4) 11.0 H, Total T3 0.86 L, CBC w Diff NO MAN DIFF REQ, RBC 3.72 L, MCV 89.2, MCH 29.4, MCHC 33.0, RDW 13.0, MPV 7.8, Gran % 76.0 H, Lymphocytes % 16.9 L, Monocytes % 6.1, Eosinophils % 0.5, Basophils % 0.5, Absolute Granulocytes 6.1, Absolute Lymphocytes 1.4, Absolute Monocytes 0.5, Absolute Eosinophils 0, Absolute Basophils 0 10/18/17 0050: APTT > 120 *H 10/18/17 0002: Troponin I 0.03 10/17/17 1818: Urine Color YEL, Urine Clarity CLEAR, Urine pH 6.0, Ur Specific [place] 1.010, Urine Protein NEG, Urine Ketones NEG, Urine Nitrite NEG, Urine Bilirubin NEG, Urine Urobilinogen 0.2, Ur Leukocyte Esterase NEG, Ur Microscopic SEDIMENT EXAMINED, Urine RBC RARE, Urine WBC RARE, Ur Epithelial Cells FEW, Urine Bacteria PACKD H, Urine Mucus FEW, Urine Hemoglobin SMALL H, Urine Glucose NEG 10/17/17 1400: Anion Gap 16, Estimated GFR 60, BUN/Creatinine Ratio 13.3, Glucose 156 H, Calcium 9.0, Magnesium 1.5 L, Total Bilirubin 0.9, AST 35, ALT 47, Alkaline Phosphatase 96, Troponin I 0.01, Zuu-Z-Scpjynhvpto Pept 4660 H, Total Protein 6.6, Albumin 4.0, Globulin 2.6, Albumin/Globulin Ratio 1.5, TSH 5.870 H, PT 11.8, INR 1.08, APTT 43 H, CBC w Diff NO MAN DIFF REQ, RBC 3.76 L, MCV 89.1, MCH 29.2, MCHC 32.7 L, RDW 13.6, MPV 7.8, Gran % 68.1, Lymphocytes % 24.3, Monocytes % 4.7, Eosinophils % 2.2, Basophils % 0.7, Absolute Granulocytes 5.0, Absolute Lymphocytes 1.8, Absolute Monocytes 0.3, Absolute Eosinophils 0.2, Absolute Basophils 0.1 Recent Imaging Studies: CONCLUSIONS Moderate concentric left ventricular hypertrophy. Normal left ventricular ejection fraction visually estimated at 60 Mild left atrial dilatation. Mild to moderate thickening/calcification of the mitral valve leaflets. Mild to moderate mitral annular calcification. Mild mitral regurgitation. Focal thickening of the aortic valve cusps. No aortic stenosis. Right ventricular systolic pressure estimated to be within the normal range at 30-35 mmHg. The aortic arch and great vessels are not well seen. Thong Hoskins M.D. (Electronically Signed) Final Date: 18 Oct 2017 11:15 IMPRESSION: 1. Approximately 6 cm segment of the distal right superficial femoral artery demonstrates occlusion, with reconstitution of flow. Distally, there is three vessel runoff of the right lower extremity. 2. Short segment of occlusion of the distal left popliteal artery, with reconstitution of flow. Distally, there is three vessel runoff of the left lower extremity. 3. Overall moderate atherosclerotic disease of the aorta and branch vessels as described above. 4. Partially visualized moderate bilateral pleural effusions with adjacent atelectasis. 5. Cholelithiasis. 6. Small hiatal hernia. DICTATED BY: Zeb Gardner MD DATE/TIME DICTATED:10/18/17206 SOFTWARE CONFIGURATION MANAGER:JOSE JUAN DATE/TIME TRANSCRIBED:10/18/17206 Assessment/Plan Assessment/Plan The patient's heart rate is controlled on her current regimen. I would continue this. Cardizem can be increased if her rate goes up. I recommend vascular consultation for her abnormal CTA of the lower extremities. I recommend starting her on 2.5 mg twice daily of Eliquis and discontinuing IV heparin. Continue telemetry? Yes
[2017-10-18 22:29] VITALS: BP 130/80
[2017-10-19 06:53] VITALS: BP 138/76
--- NOTE | 2017-10-19 07:54 | PN- Housestaff ---
Boubacar ERIC,Joyce 10/19/17 0754: Subjective Follow-up For: 1. Bilateral lower extremity weakness and numbness RESOLVED today 2. New onset atrial fibrillation 3. Acute on chronic diastolic heart failure 4. 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 Hypomagnesemia, Hypokalemia RESOLVED 6. History of dysphagia 7. History of hypothyroidism - recent dose adjustment 8. History of osteoporosis, HTN, osteoarthritis, rheumatoid arthritis Complaints: no complaints Tele-Events Since Last Visit: afib [id number] Subjective: Patient has no complaints except for some throat pain that she blames on GERD. She has had issues with her esophagus and stricture in the past. She does not some minor back pain. She denies chest pain or palpitations. Her lower legs are not bothering her. Notes no weakness or numbness. Review of Systems Constitutional: Reports: no symptoms. EENTM: Reports: throat pain. Cardiovascular: Reports: no symptoms. Respiratory: Reports: no symptoms. Gastrointestinal: Reports: no symptoms. Genitourinary: Reports: no symptoms. Musculoskeletal: Reports: back pain. Skin: Reports: no symptoms. Objective Last 24 Hrs of Vital Signs/I&O Vital Signs Date Time Temp Pulse Resp B/P B/P Pulse O2 O2 Flow FiO2 Mean Ox Delivery Rate 10/19 1410 77 120/70 10/19 1155 85 138/75 10/19 0653 98.5 99 20 138/76 97 Room Air 10/19 0506 91 134/76 10/18 2229 97.7 78 24 130/80 96 / 2130 96 120/62 Intake & Output 10/19 1600 10/19 0800 10/19 0000 Intake Total 110 300 Output Total Balance 110 300 Intake, IV 10 Intake, Oral 100 300 Number 2 Bowel Movements Patient 147 lb Weight Physical Exam General Appearance: Alert, Oriented X3, Cooperative, No Acute Distress Skin: No Rashes, No Breakdown, No Significant Lesion Skin Temp/Moisture Exam: Warm/Dry Sepsis Skin Exam (color): Normal for Ethnicity HEENT: Atraumatic, EOMI, Mucous Membr. moist/pink Cardiovascular: Regular Rate, Normal S1, Normal S2 Lungs: Clear to Auscultation, Normal Air Movement Abdomen: Normal Bowel Sounds, Soft, No Tenderness Neurological: Normal Speech, Strength at 5/5 X4 Ext, Normal Tone, Sensation Intact, Reflexes 2+ Extremities: No Clubbing, No Cyanosis, No Edema, Normal Pulses, No Tenderness/ Swelling, warm, positive sensation, decreased weakness from prior. Vascular: Normal Pulses, Pulses Symmetrical Current Medications: Current Medications Sig/Arslan Start time Last Medication Dose Route Stop Time Status Admin Acetaminophen 650 MG Q6P PRN 10/17 2300 DCD 05 PO 0019 Apixaban 2.5 MG BID 10/18 1258 DCD 05 PO 0959 Aspirin Buffered 81 MG DAILY 10/18 0900 DCD 05 PO 1155 Atorvastatin Calcium 40 MG 1700 10/18 1700 DCD 05 PO 1814 Diltiazem HCl 30 MG Q8 10/17 2315 DCD 10/19 PO 1410 Furosemide 20 MG DAILY 10/18 09 DCD 05 PO 0959 Levothyroxine Sodium 0.1 MG DAILY AC 10/18 0700 DCD 05 PO 0506 Lidocaine 1 PAT DAILY 10/19 0900 DCD 10/19 EXT 1000 Lidocaine 1 PAT Q24H 10/17 2300 DC 10/18 EXT 0018 Losartan Potassium 100 MG DAILY 10/18 09 DCD 05 PO 1155 Patient Medication 1 ED ONE ONE 10/19 1200 DC Teaching ED 10/19 1201 Last 24 Hrs of Lab/Qamar Results Last 24 Hrs of Labs/Mics: Laboratory Tests 10/19/17 0655: Anion Gap 10, Estimated GFR 53 L, BUN/Creatinine Ratio 13.0, CBC w Diff NO MAN DIFF REQ, RBC 3.34 L, MCV 88.3, MCH 29.6, MCHC 33.5, RDW 13.4, MPV 7.7, Gran % 62.5, Lymphocytes % 27.3, Monocytes % 6.7, Eosinophils % 2.8, Basophils % 0.7, Absolute Granulocytes 3.3, Absolute Lymphocytes 1.4, Absolute Monocytes 0.4, Absolute Eosinophils 0.1, Absolute Basophils 0 10/18/17 1800: APTT Cancelled Assessment/Plan Assessment: Patient is an 86-year-old female with past medical history of hypothyroidism, osteoporosis, hypertension, osteoarthritis, rheumatoid arthritis, dysphagia, Tamiko's thyroiditis status, last admitted on June 21 for an acute L2 compression fracture presenting this admission with chief complaint of bilateral leg numbness and weakness. Patient is admitted to the telemetry for management of the followin. Bilateral lower extremity weakness and numbness likely 2/2 to acute to subacute superimposed lumbar compression fraction or peripheral vascular disease as superficial femoral artery stenosis in the right leg and distal left popliteal artery stenosis were found. Of note patient also notes that she has a previously broken ankle healed on its own and a displaced shoulder. Patient does not want any kind of orthopedic intervention. Today, 5 the patient notes that her leg feels better, it is warm, good strength and sensation. 2. New onset atrial fibrillation- found incidentally in the ED. Previously in NSR in June. Patient has a family history of atrial fibrillation, her daughters all have A. fib reportedly. Chads*score is 6. Patient was started on IV heparin drip and transitioned to eliquis yesterday 3. Acute on chronic diastolic heart failure- patient on exam had mild JVD, bibasilar crackles, imaging showed bilateral pleural effusion, trace bilateral edema, elevated proBNP. Today has clear lungs. 4. Hypomagnesemia, Hypokalemia RESOLVED 5. History of dysphagia - patient had esophageal stricture/stenosis which was opened mechanically in the past, received erythromycin as well. 6. History of hypothyroidism - recent dose adjustment 7. History of osteoporosis, HTN, osteoarthritis, rheumatoid arthritis 8. Hypertension on admission -patient is on losartan here. She does have a right hemodynamically significant renal artery stenosis. Plan: - continue on telemetry with continuous monitoring - Serial EKG and troponin were negative for ACS -We have switched patient's heparin drip to Eliquis 2.5 mg twice a day. As per cardiology we can discharge the patient on cardizem 120mg long acting. - She will follow up with Dr. Hoskins. - Patient received 1 x cardizem IV 10mg in the ED. Patient started on cardizem 30mg PO q8h - ECHO done - showing moderate left ventricular hypertrophy and 60% ejection fraction, no aortic stenosis. - TSH, Free T4, both elevated, evidence of hypothyroidism patient on Synthroid. Lipid panel is normal we will continue patient's Lipitor 40 mg. Hemoglobin A1c is 5.7. - repleted electrolytes - Strict I/O, daily weights - Patient received IV lasix 20mg x 1. Does not appear overtly hypervolemic. Saturating well. Continued PO lasix 20mg today and will do so outpatient. - Patient's right leg - no palpable pulses, not audible on bedside doppler, CT Angiogram with runoff was done of lower extremities showing stenosed arteries but with collaterals YESTERDAY. Today her leg looks better, warm, good sensation , good strength. Vascular consult placed yesterday but as they plan to come after discharge, we will refer her to them. - Swallow evaluation for dysphagia (currently placed on previous diet of mechanical soft ground with thin liquids which she follows at home). -Aspiration, fall precautions -Pain control with Lidoderm patch and pathway. DVT PPx: Eliquis Code: Full code Diet: heart healthy, mechanical soft ground with thin liquids Problem List: 1. CHF (congestive heart failure) 2. Peripheral vascular disease 3. New onset a-fib Pain Ratin Pain Location: back Pain Goal: Pain 4 or less Pain Plan: pathway and lidoderm patch Tomorrow's Labs & Rationales: patient to be discharged Ramone Allen 10/19/17 1139: Attending MD Review Statement Attending Statement Attending MD Statement: examined this patient, discuss w/resident/PA/CAREER PORTALS TEACHER, agreed w/resident/PA/CAREER PORTALS TEACHER, discussed with family, reviewed EMR data (avail), discussed with nursing, discussed with case mgmt, reviewed images, amended to note Attending Assessment/Plan: Patient seen/examined bedside. Patient says she is able to ambulate to bathroom by herself without any issues. She has rails and walker at home for ambulation. Her rate is controlled on cardizem and give 120mg CD at discharge as per cardio recs. Patient continue on anticoagulation. Patient has chronic compression fracture with possible subacute event and she does not want to pursue clearly any surgical options and refuses them. Pain controlled on Lidocaine patch topical. Anticipate dc soon.
[2017-10-19 08:02] LABS: ABSOLUTE BASOPHIL COUNT 0 /CUMM (0.0-0.2); ABSOLUTE EOSINOPHIL COUNT 0.1 /CUMM (0.0-0.7); ABSOLUTE GRANULOCYTE CT 3.3 /CUMM (1.4-6.5); ABSOLUTE LYMPH COUNT 1.4 /CUMM (1.2-3.4); ABSOLUTE MONOCYTE COUNT 0.4 /CUMM (0.10-0.60); BASOPHIL % 0.7 % (0.0-2.0); EOSINOPHIL % 2.8 % (0-5); GRANULOCYTE % 62.5 % (42.2-75.2); HEMATOCRIT 29.5 % (37-47); MEAN CORPUSCULAR HGB 29.6 PG (27.0-31.0); MEAN CORPUSCULAR HGB CONC 33.5 G/DL (33.0-37.0); MEAN CORPUSCULAR VOLUME 88.3 FL (81.0-99.0); MEAN PLATELET VOLUME 7.7 FL (7.4-10.4); PLATELET COUNT 283 /CUMM (130-400); RBC DISTRIBUTION WIDTH 13.4 % (11.5-14.5); RED BLOOD CELL CT 3.34 /CUMM (4.20-5.40); WHITE BLOOD CELL COUNT 5.2 /CUMM (4.8-10.8)
[2017-10-19] MEDS ORDERED: FUROSEMIDE20 M1 PO ×2 (09:35→13:08)
[2017-10-19] MEDS ORDERED: ELIQUIS2.5 M1 PO ×2 (09:35→13:08)
[2017-10-19] MEDS ORDERED: CARDIZEM30 M1 PO (09:35)
--- NOTE | 2017-10-19 09:47 | Patient Discharge Instructions ---
Discharge Instructions General Discharge Information You were seen/treated for: Lower extremity weakness and numbness New atrial figrillation New congestive heart failure compression fracture You had these procedures: 1. anticoagulation started (Eliquis 2.5mg bid) 2. heart rate control medication started (Cardizem 120mg) 3. CT angiogram of your leg with vascular surgeon Watch for these problems: 1. chest pain 2. palpitations 3. shortness of breath 4. malaise 5. bladder or bowel incontinence 6. excruciating back pain Special Instructions: 1. Please follow up with a vascular surgeon. The referral has been provided 2. Please take your medications as prescribed 3. You have been started on an anticoagulant called Eliquis. It increases your risk for bleeding. If you ever sustain a fall and/or hit your head please come to ED immediately. 4. Follow up with your magnetic prospecting operator and primary care doctor in one week. Diet Continue normal diet: No Recommended Diet: Heart Healthy, low salt Activity Full Activity/No Limits: No Activity Self Limited: Yes Acute Coronary Syndrome Inclusion Criteria At DC or during hospital stay patient has or had the following: ACS DIAGNOSIS No Discharge Core Measures Meds if any: Prescribed or Continued at Discharge Meds if any: NOT Prescribed or Continued at Discharge Congestive Heart Failure Inclusion Criteria At DC or during hospital stay patient has or had the following: CHF DIAGNOSIS No Discharge Core Measures Meds if any: Prescribed or Continued at Discharge Meds if any: NOT Prescribed or Continued at Discharge Cerebrovascular accident Inclusion Criteria At DC or during hospital stay patient has or had the following: CVA/TIA Diagnosis No Discharge Core Measures Meds if any: Prescribed or Continued at Discharge Meds if any: NOT Prescribed or Continued at Discharge Venous thromboembolism Inclusion Criteria VTE Diagnosis No VTE Type NONE VTE Confirmed by (Test) NONE Discharge Core Measures - Per Current guidelines, there needs to be overlap - treatment for the first 5 days of Warfarin therapy. - If discharged on Warfarin prior to 5 days of - overlap therapy, the patient will need to be - assessed for post discharge needs including - *Post discharge parental anticoagulation - *Warfarin and/or parental anticoagulation education - *Follow up date to check INR post discharge At least 5 days overlap therapy as Inpatient No Meds if any: Prescribed or Continued at Discharge Note: Overlap Therapy is Warfarin and Anticoagulant Meds if any: NOT Prescribed or Continued at Discharge
--- NOTE | 2017-10-19 09:56 | PN- Cardiology ---
Subjective Subjective: The patient denies any chest pain or back pain at this time. She states she has been ambulatory to the bathroom and the chair. She remains in atrial fibrillation. Her rate is controlled in the 80s at this time. She is on diltiazem total of 90 mg daily plus low dose Eliquis. Objective Vital Signs and I&Os Vital Signs Date Time Temp Pulse Resp B/P B/P Pulse O2 O2 Flow FiO2 Mean Ox Delivery Rate 10/19 0553 98.5 99 20 138/76 97 Room Air 10/19 0506 91 134/76 10/18 2229 97.7 78 24 130/80 96 / 2130 96 120/62 10/18 1421 120/62 10/18 1100 Room Air Intake & Output 10/19 1600 10/19 0800 10/19 0000 10/18 1600 10/18 0800 10/18 0000 Intake Total 110 300 520 390 Output Total 500 675 700 Balance 110 300 20 -285 -700 Intake, IV 10 120 110 Intake, Oral 100 300 400 280 Number 2 Bowel Movements Output, Urine 500 675 700 Patient 147 lb 146 lb Weight Weight Bed scale Measurement Method Physical Exam: Elderly female in no acute distress HEENT exam normal Chest clear Heart irregular rhythm, no murmurs Extremities no edema Current Medications: Current Medications Sig/Arslan Start time Last Medication Dose Route Stop Time Status Admin Acetaminophen 650 MG Q6P PRN 10/17 2300 AC 10/18 PO 0019 Apixaban 2.5 MG BID 10/18 1258 AC 10/18 PO 2127 Aspirin Buffered 81 MG DAILY 10/18 0900 AC 10/18 PO 0839 Atorvastatin Calcium 40 MG 1700 10/18 1700 AC 10/18 PO 1814 Diltiazem HCl 30 MG Q8 10/17 2315 AC 10/19 PO 0506 Furosemide 20 MG DAILY 10/18 0900 AC 10/18 PO 0839 Heparin Sodium 25,000 UNIT Q24H 10/17 1815 DC 10/17 (Porcine) IV 1843 Sodium Chloride 500 ML Levothyroxine Sodium 0.1 MG DAILY AC 10/18 0700 AC 10/19 PO 0506 Lidocaine 1 PAT DAILY 10/19 0900 AC EXT Lidocaine 1 PAT Q24H 10/17 2300 DC 10/18 EXT 0018 Losartan Potassium 100 MG DAILY 10/18 0900 AC 10/18 PO 0840 Results Last 48 Hrs of Labs/Mics: Laboratory Tests 10/19/17 0655: Anion Gap 10, Estimated GFR 53 L, BUN/Creatinine Ratio 13.0, CBC w Diff NO MAN DIFF REQ, RBC 3.34 L, MCV 88.3, MCH 29.6, MCHC 33.5, RDW 13.4, MPV 7.7, Gran % 62.5, Lymphocytes % 27.3, Monocytes % 6.7, Eosinophils % 2.8, Basophils % 0.7, Absolute Granulocytes 3.3, Absolute Lymphocytes 1.4, Absolute Monocytes 0.4, Absolute Eosinophils 0.1, Absolute Basophils 0 10/18/17 1800: APTT Cancelled 10/18/17 0945: APTT > 120 *H 10/18/17 0450: Troponin I 0.04 10/18/17 0450: Anion Gap 13, Estimated GFR 60, BUN/Creatinine Ratio 14.4, Hemoglobin A1c 5.7, Triglycerides 51, Cholesterol 123, LDL Cholesterol, Calc 47 L, HDL Cholesterol 66 H, Cholesterol/HDL Ratio 2, Thyroxine (T4) 11.0 H, Total T3 0.86 L, CBC w Diff NO MAN DIFF REQ, RBC 3.72 L, MCV 89.2, MCH 29.4, MCHC 33.0, RDW 13.0, MPV 7.8, Gran % 76.0 H, Lymphocytes % 16.9 L, Monocytes % 6.1, Eosinophils % 0.5, Basophils % 0.5, Absolute Granulocytes 6.1, Absolute Lymphocytes 1.4, Absolute Monocytes 0.5, Absolute Eosinophils 0, Absolute Basophils 0 10/18/17 0050: APTT > 120 *H 10/18/17 0002: Troponin I 0.03 10/17/17 1818: Urine Color YEL, Urine Clarity CLEAR, Urine pH 6.0, Ur Specific [place] 1.010, Urine Protein NEG, Urine Ketones NEG, Urine Nitrite NEG, Urine Bilirubin NEG, Urine Urobilinogen 0.2, Ur Leukocyte Esterase NEG, Ur Microscopic SEDIMENT EXAMINED, Urine RBC RARE, Urine WBC RARE, Ur Epithelial Cells FEW, Urine Bacteria PACKD H, Urine Mucus FEW, Urine Hemoglobin SMALL H, Urine Glucose NEG 10/17/17 1400: Anion Gap 16, Estimated GFR 60, BUN/Creatinine Ratio 13.3, Glucose 156 H, Calcium 9.0, Magnesium 1.5 L, Total Bilirubin 0.9, AST 35, ALT 47, Alkaline Phosphatase 96, Troponin I 0.01, Prc-U-Evxkffznewa Pept 4660 H, Total Protein 6.6, Albumin 4.0, Globulin 2.6, Albumin/Globulin Ratio 1.5, TSH 5.870 H, PT 11.8, INR 1.08, APTT 43 H, CBC w Diff NO MAN DIFF REQ, RBC 3.76 L, MCV 89.1, MCH 29.2, MCHC 32.7 L, RDW 13.6, MPV 7.8, Gran % 68.1, Lymphocytes % 24.3, Monocytes % 4.7, Eosinophils % 2.2, Basophils % 0.7, Absolute Granulocytes 5.0, Absolute Lymphocytes 1.8, Absolute Monocytes 0.3, Absolute Eosinophils 0.2, Absolute Basophils 0.1 Assessment/Plan Assessment/Plan The patient is stable from a cardiac standpoint. She remains in atrial fibrillation. Her rate is reasonably controlled. She is asymptomatic from this. There are no plans for cardioversion etc. at this time. I think she can best be managed with rate control. If she gets discharged today I would recommend sending her out on long-acting Cardizem 120 mg daily plus Eliquis 2.5 mg twice daily. Continue telemetry? Yes
[2017-10-19] MEDS ORDERED: DILTIAZEM 24HR120 MG PO ×2 (11:40→13:08)
[2017-10-19 14:10] VITALS: BP 120/70
--- NOTE | 2017-10-24 22:11 | Discharge Summary ---
Visit Information Visit Dates Admission Date: 10/17/17 Discharge Date: 10/19/17 Hospital Course Course Attending Physician: Ramone Allen MD Primary Care Physician: [facility]: Patient is an 86-year-old female with past medical history of hypothyroidism, osteoporosis, hypertension, osteoarthritis, rheumatoid arthritis, dysphagia, Tamiko's thyroiditis status, last admitted on June 21 for an acute L2 compression fracture presenting this admission with chief complaint of bilateral leg numbness and weakness. Patient was admitted to the telemetry for management of: -Bilateral lower extremity weakness and numbness likely 2/2 to acute to subacute superimposed lumbar compression fraction found on lumbar CT spine or peripheral vascular disease as superficial femoral artery stenosis in the right leg and distal left popliteal artery stenosis with collateral circulations were found with CT angiogram with runoff. Of note patient also notes that she has a previously broken ankle healed on its own and a displaced shoulder. Patient does not want any kind of orthopedic intervention. On 10/19, the day of discharge, the patient notes that her leg feels better, it is warm, good strength and sensation. -New onset atrial fibrillation- found incidentally in the ED. Previously in [facility] in June. Patient has a family history of atrial fibrillation, her daughters all have A. fib reportedly. Chads*score is 6. Patient was started on IV heparin drip and transitioned to eliquis. Trops and EKGs negative for ACS. We discharged the patient on cardizem 120mg long acting. ECHO done - showing moderate left ventricular hypertrophy and 60% ejection fraction, no aortic stenosis. -Acute on chronic diastolic heart failure- patient on exam had mild JVD, bibasilar crackles, imaging showed bilateral pleural effusion, trace bilateral edema, elevated proBNP. On day of discharge has clear lungs. Patient received IV lasix 20mg x 1 in ED. Does not appear overtly hypervolemic. Saturating well. Continued PO lasix 20mg to outpatient. -Hypomagnesemia, Hypokalemia were repleted successfully -History of dysphagia - patient had esophageal stricture/stenosis which was opened mechanically in the past, received erythromycin as well. Noted some symptoms she attributed to GERD while under our care. Placed on previous diet of mechanical soft ground with thin liquids which she follows at home. -History of hypothyroidism, HLD - recent dose adjustment continued with us. TSH , Free T4, both elevated, evidence of hypothyroidism patient on Synthroid. Lipid panel is normal we will continue patient's Lipitor 40 mg. Hemoglobin A1c is 5.7. -Hypertension on admission -patient was on losartan here. She does have a right hemodynamically significant renal artery stenosis. DVT PPx: Eliquis Code: Full code Diet: heart healthy, mechanical soft ground with thin liquids Allergies: Coded Allergies: NO KNOWN ALLERGIES (08/24/16) Disposition Summary Disposition Principal Diagnosis: lower extremity weakness and numbness secondary to compression fracture Additional Diagnosis: PVD Discharge Disposition: home health services Discharge Instructions General Discharge Information Code Status: Full Code Patient's Diet: placed on previous diet of mechanical soft ground with thin liquids which she follows at home Patient's Activity: as tolerated Follow-Up Instructions/Appts: 1. Please follow up with a vascular surgeon. The referral has been provided 2. Please take your medications as prescribed 3. You have been started on an anticoagulant called Ondinaquspenser. It increases your risk for bleeding. If you ever sustain a fall and/or hit your head please come to ED immediately. 4. Follow up with your outpatient case manager and primary care doctor in one week. Medications at Discharge Discharge Medications: Continue taking these medications: Levothyroxine Sodium (Synthroid) 100 MCG TABLET 1 Tablet ORAL DAILY Comments: Last Taken:10/19/17 Time:0506 Losartan Potassium (Losartan Potassium) 100 MG TABLET 1 Tablet ORAL DAILY Comments: Last Taken:10/19/17 Time:1155 Aspirin (Ecotrin*) 81 MG TABLET.DR 1 Tablet ORAL DAILY Comments: Last Taken:10/19/17 Time:1155 Rosuvastatin Calcium (Crestor) 10 MG TABLET 1 Tablet ORAL DAILY Comments: NOT GIVEN Cyclobenzaprine HCl (Cyclobenzaprine HCl) 5 MG TABLET 1 Tablet ORAL DAILY as needed for Back pain/spasm Qty = 5 Comments: NOT RECEIVED Lidocaine (Lidoderm) 5 % ADH..PATCH 1 Patch On the skin DAILY Qty = 7 Instructions: may wear up to 12 hours Comments: Last Taken:10/19/17 Time:1000 Acetaminophen (Acetaminophen Extra Strength) 500 MG TABLET 2 Tablet ORAL TWICE DAILY Qty = 14 Comments: Last Taken:10/18/17 Time:0019 Tramadol HCl (Ultram) 50 MG TABLET 0.5 Tablet ORAL EVERY 8 HOURS NEEDED as needed for Back pain Qty = 10 Comments: NOT GIVEN Cholecalciferol (Vitamin D3) (Vitamin D) 2,000 UNIT CAPSULE 1 Capsule ORAL DAILY Qty = 30 Comments: not received Start taking the following new medications: Apixaban (Eliquis) 2.5 MG TABLET 1 Tablet ORAL TWICE DAILY Qty = 30 No Refills Instructions: . Comments: Last Taken:10/19/17 Time:0959 Diltiazem HCl (Diltiazem 24HR ER) 120 MG CAP.ER.24H 1 Capsule ORAL DAILY Qty = 30 No Refills Instructions: . Comments: Last Taken:10/19/17 Time:1400 Furosemide (Furosemide) 20 MG TABLET 1 Tablet ORAL DAILY Qty = 30 No Refills Instructions: . Comments: Last Taken:10/19/17 Time:0959 Copies To: Luba Grimaldo APRN; Aidee ERIC,[facility]; Wesly ERIC,[facility]
== END 2017-10-19 14:25 | disposition home health service (06) | DRG 308 ==
LOC: ERH 13:43 → 1NO 20:13 → ERHI 20:13 → ENRESERV 21:32 → ENTRNSPT 21:42 → EDTRNSPTSTS 22:11 → EDTRNSPT 22:11 → 1NO 22:13 → CMPTRNSPT 22:27 → 1NO 10-18 10:14 → EDPENDDISTM 10-19 11:55 → EDPENDDISDT 10-19 11:55 → ENTRNSPT 10-19 13:58 → EDTRNSPTSTS 10-19 14:03 → EDTRNSPT 10-19 14:03 → CMPTRNSPT 10-19 14:14 → 1NO 10-19 14:25
PROVIDERS: Physician Assistant Medical; Student in an Organized Health Care Education/Training Program
DX: I48.91 Unspecified atrial fibrillation (principal); I50.33 Acute on chronic diastolic (congestive) heart failure; E86.0 Dehydration; E83.42 Hypomagnesemia; R13.10 Dysphagia, unspecified; M06.9 Rheumatoid arthritis, unspecified; I13.0 Hypertensive heart and chronic kidney disease with heart failure and stage 1 through stage 4 chronic kidney disease, or unspecified chronic kidney disease; I11.0 Hypertensive heart disease with heart failure; I50.9 Heart failure, unspecified; N18.3 Chronic kidney disease, stage 3 (moderate); M54.16 Radiculopathy, lumbar region; R20.2 Paresthesia of skin; M81.0 Age-related osteoporosis without current pathological fracture; E06.3 Autoimmune thyroiditis; K21.9 Gastro-esophageal reflux disease without esophagitis; E78.5 Hyperlipidemia, unspecified; Z90.710 Acquired absence of both cervix and uterus; M48.56XD Collapsed vertebra, not elsewhere classified, lumbar region, subsequent encounter for fracture with routine healing; I70.202 Unspecified atherosclerosis of native arteries of extremities, left leg; E87.6 Hypokalemia
CPT/HCPCS: 1NP; 36592; 71045; 81001; 82436; 93005; 93010; 93306; 96374; 96375; 97116-GO; 97161-GP; 97530-GO; J0131; J1644; J1940; J3490

== ENCOUNTER 2018-03-09 13:30 | Emergency (ER) | payer OTHER, MEDICARE ==
[~2018-03-09] VITALS: Ht 152.4 cm; Wt 60.8 kg
[~2018-03-09 13:30] MED LIST changes: +CARDIZEM30 M1 PO; +DILTIAZEM 24HR120 MG PO; +ELIQUIS2.5 M1 PO; +FUROSEMIDE20 M1 PO
[2018-03-09] MEDS ORDERED: CYANOCOBAL1000 MCG/2 IM (14:31)
[2018-03-09 14:42] LABS: ABSOLUTE BASOPHIL COUNT 0 /CUMM (0.0-0.2); ABSOLUTE EOSINOPHIL COUNT 0.2 /CUMM (0.0-0.7); ABSOLUTE GRANULOCYTE CT 5.5 /CUMM (1.4-6.5); ABSOLUTE LYMPH COUNT 1.5 /CUMM (1.2-3.4); ABSOLUTE MONOCYTE COUNT 0.4 /CUMM (0.10-0.60); BASOPHIL % 0.6 % (0.0-2.0); EOSINOPHIL % 2.4 % (0-5); GRANULOCYTE % 71.8 % (42.2-75.2); MEAN CORPUSCULAR HGB 29.2 PG (27.0-31.0); MEAN CORPUSCULAR HGB CONC 33.8 G/DL (33.0-37.0); MEAN CORPUSCULAR VOLUME 86.5 FL (81.0-99.0); PLATELET COUNT 395 /CUMM (130-400); RBC DISTRIBUTION WIDTH 15.5 % (11.5-14.5); RED BLOOD CELL CT 4.17 /CUMM (4.20-5.40); WHITE BLOOD CELL COUNT 7.7 /CUMM (4.8-10.8)
--- NOTE | 2018-03-09 15:09 | ED AMS/SEIZURE/WEAK/DIZZY ---
History of Present Illness General Chief Complaint: General Adult Stated Complaint: MULTIPLE COMPLIANTS Source: patient Exam Limitations: no limitations Vital Signs & Intake/Output Vital Signs & Intake/Output Vital Signs Date Time Temp Pulse Resp B/P B/P Pulse O2 O2 Flow FiO2 Mean Ox Delivery Rate 03/09 1723 98.0 105 17 136/79 97 Room Air 03/09 1337 98.0 98 20 118/85 98 Room Air ED Intake and Output 03/10 0000 03/09 1200 Intake Total Output Total Balance Patient 134 lb Weight Weight Reported by Patient Measurement Method Allergies Coded Allergies: No Known Allergies (03/09/18) Reconcile Medications Apixaban (Eliquis) 2.5 MG TABLET 1 TAB PO BID ANTICOAGULATION . Cyanocobalamin (Vitamin B-12) (Cyanocobalamin Injection) 1,000 MCG/ML VIAL 1 ML IM Q30D VITAMIN SUPPORT (Reported) Diltiazem HCl (Diltiazem 24HR ER) 120 MG CAP.ER.24H 1 CAP PO DAILY HEART RATE . Furosemide 20 MG TABLET 1 TAB PO DAILY DIURETIC . Levothyroxine Sodium (Synthroid) 100 MCG TABLET 1 TAB PO DAILY THYROID ( Reported) Lidocaine (Lidoderm) 5 % ADH..PATCH 1 PAT TOP DAILY Back pain may wear up to 12 hours Losartan Potassium 100 MG TABLET 1 TAB PO DAILY BP (Reported) Omeprazole 40 MG CAPSULE.DR 1 CAP PO DAILY acid reflux Rosuvastatin Calcium (Crestor) 10 MG TABLET 1 TAB PO DAILY CHOLESTEROL ( Reported) Sulfamethoxazole/Trimethoprim (Bactrim Ds Tablet) 800 MG-160 MG TABLET 1 TAB PO BID uti Triage Note: PT TO ER WITH DAUGHTER C/C THROAT AND STOMACH PROBLEMS. FEELS LIKE FOOD IS GETTING STUCK. STATES "THEY OPENED UP THE ESOPHAGUS" BUT "I STILL HAVE THE SAME PROBLEM". FEELS LIKE A BALL IS IN HER THROAT X YEARS. SEES DR SANDOVAL. LAST SCOPED 1 YEAR AGO. ALLYN HERNANDEZ EVALUATING PATIENT AT TRIAGE. Triage Nurses Notes Reviewed? yes Onset: Abrupt Duration: day(s): Timing: recent history Injury Environment: home No Modifying Factors: none HPI: 87-year-old female comes into the emergency room with complaints of general weakness and fatigue. She reports that she's had chronic back pain issues from compression fractures. She also has chronic issues with her acid reflux and esophagitis. She's had her esophagus dilated before by her enterprise resource analyst. She has a history of hiatal hernia. She denies any fever chills chest pain shortness of breath or current abdominal pain. Denies any vomiting. Nothing seems to make the symptoms better. She's been managing at home by herself with no difficulty. (Mike Flores) Past History Travel History Traveled to [place] past 21 day No Medical History Any Pertinent Medical History? see below for history Neurological: NONE EENT: NONE Cardiovascular: hypertension, hyperlipidemia Respiratory: NONE Gastrointestinal: GERD, hiatal hernia Hepatic: NONE Renal: NONE Musculoskeletal: FRACTURE TO LOW BACK DISLOCATED L SHOULDER Psychiatric: NONE Endocrine: HALF THYROID REMOVED Blood Disorders: NONE Cancer(s): NONE BEE PRODUCER/Reproductive: NONE History of MRSA: No History of VRE: No History of CDIFF: No Surgical History Surgical History: appendectomy, hysterectomy, TONSILLECTOMY Psychosocial History Who do you live with Patient/Self Services at Home Nursing What is your primary language [place]an Tobacco Use: Never used ETOH Use: denies use Illicit Drug Use: denies illicit drug use Family History Hx Contributory? No (Mike Flores) Review of Systems Review of Systems Constitutional: Reports: see HPI. EENTM: Reports: no symptoms. Respiratory: Reports: no symptoms. Cardiovascular: Reports: no symptoms. GI: Reports: see HPI. Genitourinary: Reports: no symptoms. Musculoskeletal: Reports: see HPI. Skin: Reports: no symptoms. Neurological/Psychological: Reports: no symptoms. Hematologic/Endocrine: Reports: no symptoms. Immunologic/Allergic: Reports: no symptoms. All Other Systems: Reviewed and Negative (Mike Flores) Physical Exam Physical Exam General Appearance: well developed/nourished, no apparent distress, alert, awake Head: atraumatic, normal appearance Eyes: Bilateral: normal appearance. Ears, Nose, Throat: normal ENT inspection, hearing grossly normal Neck: normal inspection Respiratory: no respiratory distress Gastrointestinal: soft Back: normal inspection Extremities: normal range of motion Neurologic/Psych: awake, alert, oriented x 3, normal gait Skin: intact, normal color Core Measures ACS in differential dx? No CVA/TIA Diagnosis No Sepsis Present: No Sepsis Focused Exam Completed? No (Mike Flores) Progress Differential Diagnosis: anemia, dehydration, electrolyte imbalance, UTI/pyelo Plan of Care: Orders Procedure Date/time Status Regular Diet 03/10 B Active Add-on Test (ER Only) 03/09 1642 Active CULTURE,URINE 03/09 1547 Active URINALYSIS 03/09 1342 Complete TROPONIN LEVEL 03/09 1342 Complete LIPASE 03/09 1342 Complete COMPREHENSIVE METABOLIC PANEL 03/09 1342 Complete CBC WITHOUT DIFFERENTIAL 03/09 134 Complete EKG 03/09 1342 Active Laboratory Tests 03/09/18 1547: Urine Color STRAW, Urine Clarity HAZY H, Urine pH 6.5, Ur Specific [place] <= 1.005, Urine Protein NEG, Urine Ketones NEG, Urine Nitrite NEG, Urine Bilirubin NEG, Urine Urobilinogen 0.2, Ur Leukocyte Esterase LARGE H, Ur Microscopic SEDIMENT EXAMINED, Urine RBC 5-10 H, Urine WBC > 75 H, Ur Epithelial Cells MOD H, Urine Bacteria MANY H, Urine Mucus RARE, Urine Hemoglobin MOD H, Urine Glucose NEG 03/09/18 1407: Anion Gap 11, Estimated GFR 47 L, BUN/Creatinine Ratio 12.7, Glucose 102 H, Calcium 9.0, Total Bilirubin 0.8, AST 26, ALT 19, Alkaline Phosphatase 114, Troponin I < 0.01, Total Protein 7.1, Albumin 4.1, Globulin 3.0, Albumin/ Globulin Ratio 1.4, Lipase 187, CBC w Diff NO MAN DIFF REQ, RBC 4.17 L, MCV 86.5, MCH 29.2, MCHC 33.8, RDW 15.5 H, MPV 8.0, Gran % 71.8, Lymphocytes % 19.5 L, Monocytes % 5.7, Eosinophils % 2.4, Basophils % 0.6, Absolute Granulocytes 5.5, Absolute Lymphocytes 1.5, Absolute Monocytes 0.4, Absolute Eosinophils 0.2, Absolute Basophils 0 Microbiology 03/09 1547 URINE ROUT: Urine Culture - RES GRAM NEGATIVE RODS GRAM POSITIVE COCCI Diagnostic Imaging: Viewed by Me: Radiology Read. Discussed w/RAD: Radiology Read. Radiology Impression: PATIENT: YESSICA YIN PRESENT AGE: 87 PATIENT ACCOUNT NO: [id number] : 32 LOCATION: [facility] ORDERING PHYSICIAN: Mike GRUBER SERVICE DATE: 03/09/18 EXAM TYPE : RAD - XRY-PORTABLE CHEST XRAY EXAMINATION: XR PORTABLE CHEST CLINICAL INFORMATION: Weakness. COMPARISON: Chest x-ray 10/17/2017 TECHNIQUE: Portable frontal view of the chest was obtained. 3:03 PM FINDINGS: Lungs are clear. No pulmonary vascular congestion. There is no pleural effusion. The heart size is normal. The cardiac and mediastinal contours are normal. There are calcifications of the thoracic aorta. There are multilevel degenerative changes of dorsal spine. The humeral head in the right and left shoulder are high riding impacting inferior acromion consistent with chronic rotator cuff tendon tears. There is chronic deformity of the left humeral head, likely posttraumatic in etiology, remains unchanged since prior chest x-ray. IMPRESSION: No acute abnormality of the chest. DICTATED BY: Steven Schafer MD DATE/TIME DICTATED:1537 LABOR RELATIONS OFFICER:JOSE JUAN DATE/TIME TRANSCRIBED:03/09/181537 CONFIDENTIAL, DO NOT COPY WITHOUT APPROPRIATE AUTHORIZATION. <Electronically signed in Other Vendor System> SIGNED BY: Steven Schafer MD 03/09/18 1547 Initial ED EKG: rate (109), AFIB (Ko GRUBER,Mike) Departure Departure Disposition: HOME OR SELF CARE Condition: Stable Clinical Impression Primary Impression: UTI (urinary tract infection) Referrals: Luba Grimaldo APRN (PCP/Family) Additional Instructions: Take Bactrim as prescribed. Drink plenty of fluids. Follow-up with gastric urologist. Take omeprazole as prescribed. Please go over all results of today's visit with your primary care doctor. Contact your primary care doctor to let them know you were here in the emergency room. There may be nonspecific findings which may not be related to your visit today here in the emergency room but may require further evaluation and chronic monitoring by your primary care doctor. If you had a laceration today the chance of foreign body always remains. You should follow-up with your primary care doctor for recheck in 3-5 days for a wound check. If you had an x-ray done there is a chance that a fracture could have been missed on initial read and you should follow-up with your primary care doctor for repeat x-rays if symptoms persist. If your blood pressure was elevated here in the emergency room please have rechecked by [facility] primary care doctor within the next 48. If you were prescribed a narcotic here in the emergency room or any type of controlled substances you're not allowed to drive while taking this medication or operate any type of heavy machinery. Narcotics can make you feel lightheaded dizziness nausea and can cause constipation. You may need to sheepskin pickler a stool softener. Thank you for choosing [facility] emergency room. Please return to the emergency room immediately if you have any other concerns worsening of symptoms. Departure Forms: Customer Survey General Discharge Information Prescriptions: Current Visit Scripts Omeprazole 1 CAP PO DAILY #30 CAP Sulfamethoxazole/Trimethoprim (Bactrim Ds Tablet) 1 TAB PO BID #14 TAB Comments 03/09/2018 7:16:02 PM Patient clinically looks well. Does not appear to be in any type of distress. Patient has a positive UA. Started on antibiotics. Her back pain is chronic as well as her acid reflux and esophageal issues. She has had upper endoscopies previously. She is able to drink liquids and keep foods down. To follow-up with her GI doctor. Urine culture sent off. Afebrile. No white count. Nontoxic-appearing. Patient feels safe to be home by herself and has been managing fine. (Ko GRUBER,Mike) PA/RETAIL OFFICE ASSOCIATE Co-Sign Statement Statement: ED Attending supervision documentation- I saw and evaluated the patient. I have also reviewed all the pertinent lab results and diagnostic results. I agree with the findings and the plan of care as documented in the PA's/RETAIL OFFICE ASSOCIATE's documentation. x I have reviewed the ED Record and agree with the PA's/RETAIL OFFICE ASSOCIATE's documentation. [] Additions or exceptions (if any) to the PAs/RETAIL OFFICE ASSOCIATE's note and plan are summarized below: [] (Nick ERIC,[employer])
--- NOTE | 2018-03-09 15:45 | RADIOLOGY REPORT ---
EXAMINATION: XR PORTABLE CHEST CLINICAL INFORMATION: Weakness. COMPARISON: Chest x-ray 10/17/2017 TECHNIQUE: Portable frontal view of the chest was obtained. 3:03 PM FINDINGS: Lungs are clear. No pulmonary vascular congestion. There is no pleural effusion. The heart size is normal. The cardiac and mediastinal contours are normal. There are calcifications of the thoracic aorta. There are multilevel degenerative changes of dorsal spine. The humeral head in the right and left shoulder are high riding impacting inferior acromion consistent with chronic rotator cuff tendon tears. There is chronic deformity of the left humeral head, likely posttraumatic in etiology, remains unchanged since prior chest x-ray. IMPRESSION: No acute abnormality of the chest.
[2018-03-09] MEDS ORDERED: BACTRIM DS TAB1 EACH PO (17:04)
[2018-03-09] MEDS ORDERED: OMEPRAZOLE40 M1 PO (17:04)
[2018-03-09 17:23] VITALS: BP 136/79
== END 2018-03-09 17:24 ==
LOC: ERH 13:30
PROVIDERS: Physician Assistant Medical
DX: N39.0 Urinary tract infection, site not specified (principal); I10 Essential (primary) hypertension; E78.5 Hyperlipidemia, unspecified; K21.9 Gastro-esophageal reflux disease without esophagitis; K44.9 Diaphragmatic hernia without obstruction or gangrene
CPT/HCPCS: 71045; 81001; 87086; 87147; 93005; 93010